=== PATIENT | male | born 1970 | race Caucasian/White ===

== ENCOUNTER 2018-07-08 17:47 | Inpatient (IN) ==
[2018-07-08] MEDS ORDERED: Aztreonam Inj 2 GM in Sodium Chloride 0.9% Inj 100 ML IV.SIG STA (18:26)
[2018-07-08] MEDS ORDERED: Vancomycin Inj 1,250 MG in Sodium Chlor 0.9% Inj 250 ML IV.SIG ONE ×2 (18:26→23:00)
--- NOTE | 2018-07-08 19:08 | ED ---
HPI General Chief Complaint: Altered Mental Status Stated Complaint: weakness Time Seen by Provider: 07/08/18 18:06 Source: patient, family and EMS Mode of arrival: EMS History of Present Illness HPI narrative: Patient is a morbidly obese 48-year-old male presenting to the emergency department for evaluation of altered mental status. 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 Patient was staring, he was nonverbal and hypotensive with systolic blood pressure in the 60s. He came around by the time they were on scene. He reports that he is not been feeling well for a few days, increased fatigue, cough. He denies any chest pain , shortness of breath, fever, chills, nausea, vomiting. Patient currently denies any headache, dizziness. He has a history significant for GERD, type 2 diabetes, neuropathy, overactive bladder, asthma. Patient denies any illicit drug use. He has prescriptions on him for Xanax and tramadol but it does not appear that they are being overused. Patient states that this is happened to him once before, he does not elaborate on this. MD complaint: Reports decreased responsiveness and weakness Onset (ago): minute(s) Timing confirmed by: other Severity: moderate Context: Reports unknown Associated symptoms: Reports cough, malaise and weakness Treatments prior to arrival: Reports IV fluid Related Data Home Medications Medication Instructions Recorded Confirmed albuterol sulfate [ProAir HFA] 2 puff INHALATION Q4H PRN 07/08/18 07/08/18 alprazolam [Xanax] 0.5 mg PO BID PRN 07/08/18 07/08/18 ascorbic acid (vitamin C) [Vitamin 1,000 mg PO DAILY 07/08/18 07/08/18 C] bupropion HCl [Wellbutrin XL] 150 mg PO DAILY 07/08/18 07/08/18 carisoprodol [Soma] 350 mg PO TID 07/08/18 07/08/18 exenatide microspheres [Bydureon 2 mg SUBCUT Q7D 07/08/18 07/08/18 BCise] gabapentin 1,200 mg PO BID 07/08/18 07/08/18 gabapentin 600 mg PO DAILY 07/08/18 07/08/18 ibuprofen 800 mg PO DAILY 07/08/18 07/08/18 metformin 1,000 mg PO BID 07/08/18 07/08/18 mirabegron [Myrbetriq] 50 mg PO DAILY 07/08/18 07/08/18 multivit with [id number] [One 1 tab PO DAILY 07/08/18 07/08/18 Daily For Men] omeprazole 20 mg PO DAILY 07/08/18 07/08/18 potassium chloride 20 meq PO BID 07/08/18 07/08/18 tramadol 50 mg PO Q8HR PRN 07/08/18 07/08/18 Allergies Allergy/AdvReac Type Severity Reaction Status Date / Time peas Allergy Severe Anaphylaxis Verified 07/08/18 18:07 penicillin G Allergy Severe Anaphylaxis Verified 07/08/18 18:07 Sulfa (Sulfonamide Allergy Severe Anaphylaxis Verified 07/08/18 18:07 Antibiotics) *MDRO Multi-Drug Resistant AdvReac Unknown unknown Uncoded 07/08/18 18:07 Organism Review of Systems ROS: all other systems reviewed are negative [facility] Medical History Medical History Asthma (Acute) GERD (gastroesophageal reflux disease) (Acute) Hypertension (Acute) Morbid obesity (Acute) Neuropathy (Acute) Overactive bladder (Acute) Type 2 diabetes mellitus (Acute) Social History Social History Second Hand Smoke Exposure: No Smoking Status: Current every day smoker Tobacco Type: Cigarettes How Often Do You Have a Drink Containing Alcohol: Never Recent Travel in [facility] within the Last 8 Weeks: No Recent Out of Country Travel within the Last 8 Weeks: No Immunization History Tetanus Immunization: <5 Years Exam Narrative Exam Narrative: GENERAL: Morbidly obese, alert male appears acutely ill, in no acute distress. SKIN: Focused skin assessment, flushed. Chronic ulceration to lateral aspect of right lower extremity. No foul odor drainage noted. HEAD: Atraumatic. Normocephalic. EYES: Pupils equal and round. No scleral icterus. No injection or drainage. ENT: No nasal bleeding or discharge. Mucous membranes pink and moist. NECK: Trachea midline. No JVD. CARDIOVASCULAR: Tachycardic. RESPIRATORY: Diaphragmatic, expiratory wheezes, diminished in bases GASTROINTESTINAL: Abdomen obese, soft, non-tender, nondistended. Hepatic and splenic margins not palpable. Positive bowel sounds. MUSCULOSKELETAL: No obvious deformities. No clubbing. No cyanosis. 2+ edema to right lower extremity, 1+ to the left lower extremity. Chronic discoloration to bilateral lower extremities. NEUROLOGICAL: Awake and alert, oriented to self and place. No obvious cranial nerve deficits. Motor grossly within normal limits. Normal speech. PSYCHIATRIC: Appropriate mood and affect; insight and judgment normal. Course Initial Documented Vital Signs Temperature 103.1 F H 07/08/18 18:07 Pulse Rate 123 H 07/08/18 18:07 Respiratory Rate 24 07/08/18 18:07 Blood Pressure 127/54 L 07/08/18 18:07 Pulse Oximetry 95 07/08/18 18:07 Last Documented Vital Signs Temperature 100.8 F H 07/08/18 21:15 Pulse Rate 104 H 07/08/18 21:25 Respiratory Rate 18 07/08/18 21:25 Blood Pressure 98/70 L 07/08/18 21:25 Pulse Oximetry 98 07/08/18 21:25 Medical Decision Making AP Attestation AP supervised visit: Yes Attestation: I, Dr. Garcia, have reviewed the advance practice practitioner' s documentation and am in agreement, met with the patient face to face, made the diagnosis, and the medical decision making was done by me. *My assessment and Findings: The patient is a 48-year-old male who was initially seen by the mid-level provider and Dr. Stuart. The patient was noted to have elevated temperature with a fever of 103, elevated heart rate, and possible cellulitis of the right lower extremity. Sepsis workup was performed, the patient had a lactic of 2.0, however, white count was 22,000. Chest x-ray revealed questionable effusions versus infiltrate, therefore, CT of the thorax was obtained. CT of the thorax reveals no infiltrate. UA has a few WBCs. The right lower extremity does have chronic venous stasis changes with some acute erythema and warmth that spreads up to the medial right thigh. There is no crepitus noted, I doubt necrotizing fasciitis. However, patient does meet sepsis criteria and will be admitted to the hospital. The patient's primary physician is Dr. Yrn rosenthal. [facility]. The patient was noted to get hypoxic when sleeping, most likely has sleep apnea. He was placed on O2 via nasal cannula but may benefit from CPAP at night. MDM Narrative Medical decision making narrative: Patient presented hypotensive and tachycardic , and febrile. Sepsis workup initiated. Pt placed on playground monitor and continuous pulse ox. IV acetaminophen and oral motrin in addition to IVF. Medical records reviewed and pt was admitted 3 years ago with sepsis from cellulitis. Pt will be started on antibiotics empirically. Cultures pending. CBC with WBC 22, lactic 2.0, mag+ 1.0. 2g mag IV replacement ordered. Ct of the brain is negative. CXR showed abnormalities, this was followed up with a CT of the chest. Chest CT was negative for acute process. Pt was given a total of 3L IVF. Pt will be admitted, discussed with Dr. Galeana, admit orders placed. Medical Screen Exam Complete: Yes Emergency Medical Condition: Yes Differential Diagnosis Differential Diagnosis: Influenza versus cellulitis versus sepsis versus metabolic abnormality versus arrhythmia versus pneumonia versus other Medical Records Medical records reviewed: Yes I reviewed the patient's medical records. Patient was admitted with sepsis secondary to cellulitis in his lower extremity in 2014. Lab Data Result diagrams: 07/08/18 18:15 07/08/18 20:15 Lab Results 07/08/18 07/08/18 07/08/18 Range/Units 18:15 18:15 18:55 WBC 22.0 H (4.0-11.0) th/mm3 RBC 4.02 L (4.50-5.90) mil/mm3 Hgb 13.1 (13.0-17.0) gm/dL Hct 36.5 L (39.0-51.0) % MCV 90.6 (80.0-100.0) fL MCH 32.5 (27.0-34.0) pg MCHC 35.8 (32.0-36.0) % RDW 14.3 (11.6-17.2) % Plt Count 271 (150-450) th/mm3 MPV 7.8 (7.0-11.0) fL Prelim Diff (Auto) Slide review pending Neut % (Auto) 88.5 H (16.0-70.0) % Lymph % (Auto) 5.2 L (9.0-44.0) % Galax % (Auto) 5.2 (0.0-8.0) % Eos % (Auto) 0.8 (0.0-4.0) % Baso % (Auto) 0.3 (0.0-2.0) % Neut # (Auto) 19.5 H (1.8-7.7) th/mm3 Lymph # (Auto) 1.1 (1.0-4.8) th/mm3 Galax # (Auto) 1.1 H (0.0-0.9) th/mm3 Eos # (Auto) 0.2 (0.0-0.4) th/mm3 Baso # (Auto) 0.1 (0.0-0.2) th/mm3 WBC Differential . Diff Scan Auto diff confirmed Differential Comment . Platelet Estimate Normal (Normal) Platelet Morphology Normal (Normal) Sodium (136-145) meq/L Potassium (3.5-5.1) meq/L Chloride (98-107) meq/L Carbon Dioxide (21.0-32.0) meq/L Anion Gap (5-15) meq/L BUN (7-18) mg/dL Creatinine (0.60-1.30) mg/dL Estimated GFR (>89) mL/min Random Glucose (74-106) mg/dL Lactic Acid 2.0 (0.4-2.0) mmol/L Calcium (8.5-10.1) mg/dL Magnesium (1.5-2.5) mg/dL Total Bilirubin (0.2-1.0) mg/dL AST (15-37) U/L ALT (12-78) U/L Alkaline Phosphatase (45-117) U/L Total Creatine Kinase (39-308) U/L CK-MB (CK-2) (0.5-3.6) ng/mL Troponin I (0.02-0.05) ng/mL B-Natriuretic Peptide 8 (0-100) pg/mL Total Protein (6.4-8.2) g/dL Albumin (3.4-5.0) g/dL Urine Color (Yellw/Straw) Urine Clarity (Clear) Urine pH (5.0-8.5) Ur Specific Monroe (1.002-1.035) Urine Protein (Neg-Trace) mg/dL Urine Glucose (UA) (Negative) mg/dL Urine Ketones (Negative) mg/dL Urine Occult Blood (Negative) Urine Nitrate (Negative) Urine Bilirubin (Negative) Urine Urobilinogen (Less than 2) mg/dL Ur Leukocyte Esterase (Negative) Urine RBC (0-3) /hpf Urine WBC (0-5) /hpf Ur Squamous Epith Cells (0-5) /hpf Amorphous Sediment (None) /hpf Urine Bacteria (None) /hpf Hyaline Casts (0-3) /lpf Urine Mucus (Occasional) /lpf Micro UA Comment Ur Microscopic Review Urine Culture Comments 07/08/18 07/08/18 Range/Units 20:10 20:15 WBC (4.0-11.0) th/mm3 RBC (4.50-5.90) mil/mm3 Hgb (13.0-17.0) gm/dL Hct (39.0-51.0) % MCV (80.0-100.0) fL MCH (27.0-34.0) pg MCHC (32.0-36.0) % RDW (11.6-17.2) % Plt Count (150-450) th/mm3 MPV (7.0-11.0) fL Prelim Diff (Auto) Neut % (Auto) (16.0-70.0) % Lymph % (Auto) (9.0-44.0) % Galax % (Auto) (0.0-8.0) % Eos % (Auto) (0.0-4.0) % Baso % (Auto) (0.0-2.0) % Neut # (Auto) (1.8-7.7) th/mm3 Lymph # (Auto) (1.0-4.8) th/mm3 Galax # (Auto) (0.0-0.9) th/mm3 Eos # (Auto) (0.0-0.4) th/mm3 Baso # (Auto) (0.0-0.2) th/mm3 WBC Differential Diff Scan Differential Comment Platelet Estimate (Normal) Platelet Morphology (Normal) Sodium 132 L (136-145) meq/L Potassium 4.8 (3.5-5.1) meq/L Chloride 103 (98-107) meq/L Carbon Dioxide 19.9 L (21.0-32.0) meq/L Anion Gap 9 (5-15) meq/L BUN 32 H (7-18) mg/dL Creatinine 1.85 H (0.60-1.30) mg/dL Estimated GFR 39 L (>89) mL/min Random Glucose 227 H (74-106) mg/dL Lactic Acid (0.4-2.0) mmol/L Calcium 8.2 L (8.5-10.1) mg/dL Magnesium 1.0 L (1.5-2.5) mg/dL Total Bilirubin 0.5 (0.2-1.0) mg/dL AST 23 (15-37) U/L ALT 14 (12-78) U/L Alkaline Phosphatase 88 (45-117) U/L Total Creatine Kinase 253 (39-308) U/L CK-MB (CK-2) 3.3 (0.5-3.6) ng/mL Troponin I Less than 0.02 L (0.02-0.05) ng/mL B-Natriuretic Peptide (0-100) pg/mL Total Protein 7.0 (6.4-8.2) g/dL Albumin 2.6 L (3.4-5.0) g/dL Urine Color Ce (Yellw/Straw) Urine Clarity Cloudy H (Clear) Urine pH 5.0 (5.0-8.5) Ur Specific [place] 1.023 (1.002-1.035) Urine Protein 500 or greater (Neg-Trace) mg/dL Urine Glucose (UA) 50 (Negative) mg/dL Urine Ketones Negative (Negative) mg/dL Urine Occult Blood Negative (Negative) Urine Nitrate Negative (Negative) Urine Bilirubin Negative (Negative) Urine Urobilinogen 0.2 (Less than 2) mg/dL Ur Leukocyte Esterase Negative (Negative) Urine RBC 4 H (0-3) /hpf Urine WBC 9 H (0-5) /hpf Ur Squamous Epith Cells 4 (0-5) /hpf Amorphous Sediment Rare H (None) /hpf Urine Bacteria Occasional H (None) /hpf Hyaline Casts 81 (0-3) /lpf Urine Mucus Many H (Occasional) /lpf Micro UA Comment Cath-culture ind Ur Microscopic Review Not Reportable Urine Culture Comments Cath-cult indicated Imaging Data Radiologist's impression: Chest X-Ray 07/08/18 18:07 CONCLUSION: Suboptimal examination with hazy opacity in the left perihilar region and left lung base which could represent infiltrate or posterior layering effusion. Head CT 07/08/18 18:09 CONCLUSION: 1. Negative noncontrast head CT. . Chest CT 07/08/18 19:48 CONCLUSION: 1. No pneumonia or other acute cardiopulmonary disease demonstrated. 2. Enlarged, fatty liver. 3. Small hiatal hernia. Discharge Plan Discharge Disposition Patient Disposition: ED Admit(ED Internal Use Only) Discharge Condition Condition: Stable Discharge Order Discharge Orders: ED Use Only Admit Order (Routine); Ordered 07/08/18 Ordered By: Carlyn Ramachandran Discharge Details Diagnosis: Sepsis, Cellulitis, Hypomagnesemia, Acute kidney injury Physicians Team ED Provider: Karson Garcia ED Midlevel Provider: Carlyn Ramachandran Primary Care Provider: Yrn Zamora Rxs /Orders / Referrals /Forms Prescriptions: No Action ibuprofen 800 mg Tablet 800 mg PO DAILY RF: 0 omeprazole 20 mg Capsule,Delayed Release(Dr/Ec) 20 mg PO DAILY RF: 0 bupropion HCl [Wellbutrin XL] 150 mg Tablet Extended Release 24 Hr 150 mg PO DAILY RF: 0 multivit with [id number] [One Daily For Men] 0.4-600 mg-mcg Tablet 1 tab PO DAILY RF: 0 potassium chloride 20 mEq Tablet Extended Release 20 meq PO BID RF: 0 carisoprodol [Soma] 350 mg Tablet 350 mg PO TID RF: 0 metformin 500 mg Tablet 1,000 mg PO BID RF: 0 ascorbic acid (vitamin C) [Vitamin C] 1,000 mg Tablet 1,000 mg PO DAILY RF: 0 tramadol 50 mg Tablet 50 mg PO Q8HR PRN (Reason: Pain) RF: 0 alprazolam [Xanax] 0.5 mg Tablet 0.5 mg PO BID PRN (Reason: Anxiety) RF: 0 gabapentin 300 mg Capsule 600 mg PO DAILY RF: 0 gabapentin 300 mg Capsule 1,200 mg PO BID RF: 0 albuterol sulfate [ProAir HFA] 90 mcg/actuation Hfa Aerosol Inhaler 2 puff INHALATION Q4H PRN (Reason: Shortness Of Breath) RF: 0 mirabegron [Myrbetriq] 50 mg Tablet Extended Release 24 Hr 50 mg PO DAILY RF: 0 exenatide microspheres [Bydureon BCise] 2 mg/0.85 mL Auto-Injector 2 mg SUBCUT Q7D RF: 0 Status ED Status: Admitted Patient
[2018-07-08 19:21] LABS: Baso # (Auto) 0.1 th/mm3 (0.0-0.2); Baso % (Auto) 0.3 % (0.0-2.0); Eos # (Auto) 0.2 th/mm3 (0.0-0.4); Eos % (Auto) 0.8 % (0.0-4.0); Hematocrit 36.5 % (39.0-51.0); Hemoglobin 13.1 gm/dL (13.0-17.0); Lymph # (Auto) 1.1 th/mm3 (1.0-4.8); Lymph % (Auto) 5.2 % (9.0-44.0); Mean Corpuscular HGB Conc 35.8 % (32.0-36.0); Mean Corpuscular Hemoglobin 32.5 pg (27.0-34.0); Mean Corpuscular Volume 90.6 fL (80.0-100.0); Mean Platelet Volume 7.8 fL (7.0-11.0); Mono # (Auto) 1.1 th/mm3 (0.0-0.9); Mono % (Auto) 5.2 % (0.0-8.0); Neut # (Auto) 19.5 th/mm3 (1.8-7.7); Neut % (Auto) 88.5 % (16.0-70.0); Platelet Count 271 th/mm3 (150-450); Red Blood Count 4.02 mil/mm3 (4.50-5.90); Red Cell Distribution Width 14.3 % (11.6-17.2)
--- NOTE | 2018-07-08 19:29 | XR ---
EXAM DATE: 07/08/2018 7:25 PM EST AGE/SEX: 48 years / Male INDICATIONS: Fever and shortness of breath. CLINICAL DATA: This is the patient's initial encounter. Patient reports that signs and symptoms have been present for 1 day and indicates a pain score of Nonresponsive. MEDICAL/SURGICAL HISTORY: Non-responsive. Non-responsive. [place] [facility] [place]. . FINDINGS: 2 AP views of the chest were obtained and demonstrate that the heart size is at the upper limits of n ormal. There is hazy opacity in the left lung base and left perihilar region. The left costophrenic a ngle is cut off the exam. The right lung is clear. Overlying electrocardiogram leads and oxygen tubin g are present. CONCLUSION: Suboptimal examination with hazy opacity in the left perihilar region and left lung base which could represent infiltrate or posterior layering effusion. Electronically signed by: John Lawson MD 07/08/2018 7:27 PM EST
--- NOTE | 2018-07-08 19:36 | CT ---
EXAM DATE: 07/08/2018 7:25 PM EST AGE/SEX: 48 years / Male INDICATIONS: Found confused and hypotensive. CLINICAL DATA: This is the patient's initial encounter. Patient reports that signs and symptoms have been present for 1 day and indicates a pain score of 0/10. MEDICAL/SURGICAL HISTORY: None. None. RADIATION DOSE: 65.59 CTDI (mGy) ;Tabletop exam COMPARISON: No prior exams available for comparison. TECHNIQUE: CT of the head without contrast. Using automated exposure control and adjustment of the mA and/or kV according to patient size, radiation dose was kept as low as reasonably achievable to ob tain optimal diagnostic quality images. DICOM format image data is available electronically for revi ew and comparison. FINDINGS: Cerebrum: The ventricles are normal for age. No evidence of midline shift, mass lesion, hemorrhage or acute infarction. No extraaxial fluid collections are seen. Posterior Fossa: The cerebellum and brainstem are intact. The 4th ventricle is midline. The cerebe llopontine angle is unremarkable. Extracranial: The visualized portion of the orbits is intact. Skull: The calvaria is intact. No evidence of skull fracture. CONCLUSION: 1. Negative noncontrast head CT. . Electronically signed by: John Lawson MD 07/08/2018 7:35 PM EST
[2018-07-08 19:50] LABS: Platelet Estimate Normal (Normal); Platelet Morphology Normal (Normal)
[2018-07-08] MEDS ORDERED: Sod Chloride 0.9% Inj 1,000 ML IV.SIG SCH ×2 (20:30→21:45)
--- NOTE | 2018-07-08 20:44 | CT ---
EXAM DATE: 07/08/2018 8:39 PM EST AGE/SEX: 48 years / Male INDICATIONS: Cough and fever. CLINICAL DATA: This is the patient's initial encounter. Patient reports that signs and symptoms have been present for 1 day and indicates a pain score of 0/10. MEDICAL/SURGICAL HISTORY: Gastroesophageal reflux disease. Hypertension. Diabetes mellitus type I I. None. RADIATION DOSE: 23.09 CTDI (mGy) COMPARISON: No prior exams available for comparison. TECHNIQUE: Multiple contiguous axial images were obtained through the chest without contrast. Image s were obtained in suspended respiration using multiple row detector helical technique. Using automa mónica exposure control and adjustment of the mA and/or kV according to patient size, radiation dose was kept as low as reasonably achievable to obtain optimal diagnostic quality images. DICOM format imag e data is available electronically for review and comparison. FINDINGS: No infiltrate, effusion or pneumothorax. Heart size within normal limits. There is no mediastinal, hilar or axillary lymphadenopathy. Liver is fatty infiltrated and appears enlarged. There is a small hiatal hernia. CONCLUSION: 1. No pneumonia or other acute cardiopulmonary disease demonstrated. 2. Enlarged, fatty liver. 3. Small hiatal hernia. Electronically signed by: Roddy Crooks MD 07/08/2018 8:43 PM EST
[2018-07-08 20:53] LABS: Amorphous Sediment,Urine Rare /hpf; Bacteria,Urine Occasional /hpf; Bilirubin,Urine Negative (Negative); Clarity,Urine Cloudy (Clear); Color,Urine Amber (Yellw/Straw); Glucose,Urine (UA) 50 mg/dL (Negative); Hyaline Casts,Urine 81 /lpf (0-3); Leukocyte Esterase,Urine Negative (Negative); Mucus,Urine Many /lpf (Occasional); Nitrite,Urine Negative (Negative); Specific Gravity,Urine 1.023 (1.002-1.035); Squamous Epithelial Cell,Urine 4 /hpf (0-5)
[2018-07-08 20:54] LABS: Urobilinogen,Urine 0.2 mg/dL (Less than 2)
[2018-07-08 21:08] LABS: Alanine Aminotransferase 14 U/L (12-78); Albumin 2.6 g/dL (3.4-5.0); Anion Gap 9 meq/L (5-15); Aspartate Aminotransferase 23 U/L (15-37); Blood Urea Nitrogen 32 mg/dL (7-18); Calcium 8.2 mg/dL (8.5-10.1); Carbon Dioxide 19.9 meq/L (21.0-32.0); Chloride 103 meq/L (98-107); Glomerular Filtration Rate 39 mL/min (>89); Glucose,Random 227 mg/dL (74-106); Potassium 4.8 meq/L (3.5-5.1); Sodium 132 meq/L (136-145)
[2018-07-08] MEDS ORDERED: Magnesium Sulfate Inj 2 GM in Sodium Chlor 0.9% Inj 96 ML IV.SIG ONE (21:09)
[2018-07-08 21:12] LABS: Alkaline Phosphatase 88 U/L (45-117); Creatine Kinase 253 U/L (39-308)
[2018-07-08 21:24] LABS: Creatine Kinase MB 3.3 ng/mL (0.5-3.6)
[2018-07-08] MEDS ORDERED: Vancomycin Consult Pharmacy OTHER PRN (22:38)
[2018-07-08] MEDS ORDERED: Dextrose 50% in Water 50 ML Vial IV.PUSH PRN (22:42)
[2018-07-08] MEDS ORDERED: Bisacodyl 10 MG Supp RECTAL PRN (22:45)
[2018-07-08] MEDS ORDERED: ALPRAZolam 0.5 MG Tablet PO PRN (22:49)
[2018-07-09 00:01] LABS: Activated Partial Thrombo Time 29.4 sec (23.4-31.7); Prothrombin Time 10.3 sec (9.8-11.6)
[2018-07-09] MEDS ORDERED: Sod Chloride 0.9% Inj 1,000 ML IV.SIG SCH ×2 (00:45→03:15)
[2018-07-09] MEDS: Sod Chloride 0.9% Inj 1,000 ML IV.CONT SCH ×2 (01:35→16:56)
[2018-07-09] MEDS: Heparin - SQ 10,000 UNITS/ML Vial SQ SCH ×3 (02:26→22:33)
[2018-07-09] MEDS: Aztreonam Inj 2 GM in Sodium Chloride 0.9% Inj 100 ML IV.SIG SCH ×4 (02:52→19:36)
[2018-07-09] MEDS: Chlorhexidine Gluconate 2% 1 Pack (2 Cloths) TOPICAL SCH (03:29)
[2018-07-09] MEDS ORDERED: Chlorhexidine Gluconate 2% 1 Pack (2 Cloths) TOPICAL PRN (04:00)
[2018-07-09] MEDS ORDERED: Albumin Human 25% Inj 100 ML IV.SIG ONE (04:18)
[2018-07-09 04:40] LABS: ABG Base Excess -5.3 mmol/L (-2-2); ABG PCO2 48 mmHg (38-42); ABG PO2 89 mmHG (61-120)
--- NOTE | 2018-07-09 04:41 | P.HPIM ---
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 Patient somnolent, wakes up for exam. He appears to deny pain. Inpatient Certification: I certify that the inpatient services were ordered in accordance with Medicare regulations governing the order. This includes certification that hospital inpatient services are reasonable and necessary and in the case of services not specified as inpatient-only under 42 CFR 419.22(n), that they are appropriately provided as inpatient services in accordance to with the 2-midnight benchmark under 43 CFR 412.3(e) Estimated Total Length of Stay (Days): 3 Plans for Post Hospital Care: Not yet determined Review of Systems All other systems reviewed negative except as stated in HPI [facility] - History History Provided By: Patient - Medical History Medical History: Medical History (Last Reviewed 07/09/18 @ 04:34 by Stefan Galeana MD) Asthma GERD (gastroesophageal reflux disease) Hypertension Morbid obesity Neuropathy Overactive bladder Type 2 diabetes mellitus - Surgical History Surgical History: Surgical History (Last Updated 07/09/18 @ 04:36 by Stefan Galeana MD) H/O knee surgery - Family History Family History: Family History (Last Updated 07/09/18 @ 04:36 by Stefan Galeana MD) Other Family history unobtainable Family history unobtainable due to patient's condition - Tobacco History Second Hand Smoke Exposure: No Tobacco Use In Past 30 Days: Yes Smoking Status: Former smoker Tobacco Type: Cigarettes - Alcohol History How Often Do You Have a Drink Containing Alcohol: Never - Substance Use History Substance History: No History of Abuse - Travel History Recent Travel in the [place] Within the Last 8 Weeks: No Recent Travel Out of the Country Within the Last 8 Weeks: No - Immunization History Tetanus Immunization: <5 Years Medications and Allergies Active Medications: Active Medications Acetaminophen (Tylenol) 650 mg PO Q4H PRN PRN Reason: Temp > 100.4 Al Hydroxide/Mg Hydroxide (Milk Of Magnesia Liq) 30 ml PO Q12H PRN PRN Reason: Mild Constipation Albuterol (Ventolin Hfa Inh) 2 puff INH Q4H PRN PRN Reason: Shortness Of Breath Alprazolam (Xanax) 0.5 mg PO BID PRN PRN Reason: Anxiety Bisacodyl (Dulcolax Supp) 10 mg RECTAL DAILY PRN PRN Reason: SEVERE CONSITIPATION Bupropion HCl (Wellbutrin Sr) 150 mg PO DAILY [facility] Carisoprodol (Soma) 350 mg PO TID [facility] Chlorhexidine Gluconate (Chlorhexidine 2% Cloth) 3 pack TOPICAL DAILY@0400 FLEX Stop: 07/14/18 03:59 Last Admin: 07/09/18 03:29 Dose: 3 pack Chlorhexidine Gluconate (Chlorhexidine 2% Cloth) 3 pack TOPICAL DAILY@0400 PRN PRN Reason: Extra cloth needed Stop: 07/14/18 03:59 Dextrose (D50w Vial) 50 ml IV.PUSH UNSCH PRN PRN Reason: PER HYPOGLYCEMIA PROTOCOL Glucagon (Glucagon Inj) 1 mg OTHER PRN PRN PRN Reason: for Hypoglycemia Protocol Heparin Sodium (Porcine) (Heparin Inj) 5,000 units SQ Q12H [facility] Last Admin: 07/09/18 02:26 Dose: Not Given Metronidazole/Sodium Chloride (Flagyl 500 Mg Inj) 100 mls @ 100 mls/hr IV.SIG Q6H [facility] Last Infusion: 07/09/18 02:26 Dose: Infused Aztreonam 2 gm/ Sodium (Chloride) 100 mls @ 200 mls/hr IV.SIG Q6H [facility] Last Infusion: 07/09/18 03:29 Dose: Infused Sodium Chloride (Ns Inj) 1,000 mls @ 70 mls/hr IV.CONT .[id number] [facility] Last Admin: 07/09/18 01:35 Dose: 70 mls/hr Albumin Human (Flexbumin 25% Inj) 100 mls @ 60 mls/hr IV.SIG ONCE ONE Stop: 07/09/18 05:57 Insulin Aspart (Novolog Insulin Correctional Sugar Inj) 0 unit SQ ACHS [facility]; Protocol Lactulose (Lactulose Liq) 30 ml PO DAILY PRN PRN Reason: SEVERE CONSITIPATION Ondansetron HCl (Zofran Inj) 4 mg IV.PUSH Q6H PRN PRN Reason: NAUSEA OR VOMITING Pantoprazole Sodium (Protonix) 20 mg PO DAILY [facility] Pharmacy Profile Note (Vancomycin Consult Pharmacy) 1 each OTHER UNSCH PRN PRN Reason: Pharmacy to dose Sennosides (Senokot) 17.2 mg PO Q12H PRN PRN Reason: Moderate Constipation Sodium Chloride (Ns Flush) 2 ml IV.FLUSH BID FLEX Sodium Chloride (Ns Flush) 2 ml IV.FLUSH PRN PRN PRN Reason: FLUSH AFTER USING IV ACCESS Allergies Allergy/AdvReac Type Severity Reaction Status Date / Time peas Allergy Severe Anaphylaxis Verified 07/08/18 18:07 penicillin G Allergy Severe Anaphylaxis Verified 07/08/18 18:07 Sulfa (Sulfonamide Allergy Severe Anaphylaxis Verified 07/08/18 18:07 Antibiotics) *MDRO Multi-Drug Resistant AdvReac Unknown unknown Uncoded 07/08/18 18:07 Organism Home Medications Medication Instructions Recorded Confirmed Type albuterol sulfate [ProAir HFA] 2 puff INHALATION Q4H PRN 07/08/18 07/08/18 History alprazolam [Xanax] 0.5 mg PO BID PRN 07/08/18 07/08/18 History ascorbic acid (vitamin C) [Vitamin 1,000 mg PO DAILY 07/08/18 07/08/18 History C] bupropion HCl [Wellbutrin XL] 150 mg PO DAILY 07/08/18 07/08/18 History carisoprodol [Soma] 350 mg PO TID 07/08/18 07/08/18 History exenatide microspheres [Bydureon 2 mg SUBCUT Q7D 07/08/18 07/08/18 History BCise] gabapentin 1,200 mg PO BID 07/08/18 07/08/18 History gabapentin 600 mg PO DAILY 07/08/18 07/08/18 History ibuprofen 800 mg PO DAILY 07/08/18 07/08/18 History metformin 1,000 mg PO BID 07/08/18 07/08/18 History mirabegron [Myrbetriq] 50 mg PO DAILY 07/08/18 07/08/18 History multivit with [id number] [One 1 tab PO DAILY 07/08/18 07/08/18 History Daily For Men] omeprazole 20 mg PO DAILY 07/08/18 07/08/18 History potassium chloride 20 meq PO BID 07/08/18 07/08/18 History tramadol 50 mg PO Q8HR PRN 07/08/18 07/08/18 History Exam Vital signs: Vital Signs 07/08/18 18:07 12/12/18 18:15 07/08/18 18:56 Temperature 103.1 F H 103.1 F H Pulse Rate 123 H 126 H 121 H Respiratory Rate 24 24 24 Blood Pressure 127/54 L 136/58 L Pulse Oximetry 95 95 07/08/18 19:15 07/08/18 19:18 07/08/18 20:15 Temperature 101.5 F H Pulse Rate 120 H 116 H Respiratory Rate 24 20 Blood Pressure 112/55 L 87/48 L Pulse Oximetry 99 95 95 07/08/18 20:30 07/08/18 20:40 07/08/18 20:50 Temperature 101.8 F H 101.5 F H Pulse Rate 112 H 108 H 106 H Respiratory Rate 25 H 24 18 Blood Pressure 82/43 L 108/55 L 107/46 L Pulse Oximetry 95 98 99 07/08/18 21:05 07/08/18 21:15 07/08/18 21:25 Temperature 101.1 F H 100.8 F H Pulse Rate 100 H 102 H 104 H Respiratory Rate 18 20 18 Blood Pressure 98/44 L 80/43 L 98/70 L Pulse Oximetry 98 98 98 07/08/18 22:00 07/08/18 22:40 07/08/18 23:20 Temperature 100.0 F H 99.7 F H 99.0 F Pulse Rate 96 H 92 H 96 H Respiratory Rate 20 19 22 Blood Pressure 97/54 L 94/52 L 85/49 L Pulse Oximetry 97 95 95 07/09/18 00:00 07/09/18 00:20 07/09/18 01:00 Temperature 98.6 F 98.2 F 98.1 F Pulse Rate 86 92 H 90 Respiratory Rate 20 22 21 Blood Pressure 98/54 L 97/47 L 98/56 L Pulse Oximetry 95 94 L 97 07/09/18 01:20 07/09/18 01:50 07/09/18 02:29 Temperature 97.9 F 97.5 F L Pulse Rate 82 86 Respiratory Rate 16 20 Blood Pressure 107/56 L 112/58 L Pulse Oximetry 96 95 96 07/09/18 02:31 07/09/18 02:54 07/09/18 03:00 Temperature 97.7 F 97.5 F L Pulse Rate 83 83 Respiratory Rate 15 15 Blood Pressure Pulse Oximetry 95 99 98 07/09/18 03:01 07/09/18 03:06 07/09/18 03:07 Temperature 97.5 F L 97.5 F L 97.5 F L Pulse Rate 83 82 82 Respiratory Rate 15 18 17 Blood Pressure 77/45 L 78/44 L 77/44 L Pulse Oximetry 98 98 97 07/09/18 03:10 07/09/18 03:25 07/09/18 03:30 Temperature 97.5 F L 97.3 F L 97.3 F L Pulse Rate 81 81 81 Respiratory Rate 16 22 17 Blood Pressure 80/45 L 89/54 L 87/54 L Pulse Oximetry 98 99 100 Intake & Output 07/08/18 07/08/18 07/09/18 06:59 18:59 06:59 Intake Total 100 / 100 4025.0 / 4025.0 Output Total 200 / 200 Balance 100 / 100 3825.0 / 3825.0 Weight 217.724 kg 226 kg Intake: IV 100 / 100 4025.0 / 4025.0 Ofirmev Inj 1,000 mg In 100 ml 100 / 100 @ 400 mls/hr IV.SIG ONCE ONE Rx #:[id number] Azactam Inj 2 GM In NS Inj 100 200 / 200 ML @ 200 mls/hr IV.SIG Q6H [facility] Rx#:[id number] Magnesium Sulfate Inj 2 GM In 100 / 100 NS Inj 96 ML @ 50 mls/hr IV.SIG ONCE ONE Rx#:[id number] NS Inj 1,000 ML @ 1000 mls/hr 3000 / 3000 IV.SIG BOLUS [facility] Rx#:[id number] Vancomycin Inj 1,250 MG In NS 525.0 / 525.0 Inj 250 ML @ 250 mls/hr IV.SIG ONCE ONE Rx#:[id number] Flagyl 500 MG Inj 100 ML @ 100 200 / 200 mls/hr IV.SIG Q6H [facility] Rx#: [id number] Output: Urine Amount (Catheter) 200 / 200 Indwelling Temp Sensing 200 / 200 Catheter Other: Weight On Admission 226 kg Narrative: GENERAL: Patient lying in bed on CPAP. Sleeping, wakes up for exam. Appears comfortable. SKIN: Warm and dry. HEAD: Atraumatic. Normocephalic. EYES: Pupils equal and round. No scleral icterus. No injection or drainage. ENT: No nasal bleeding or discharge. Mucous membranes pink and moist. NECK: Trachea midline. No JVD. CARDIOVASCULAR: Regular rate and rhythm. RESPIRATORY: No accessory muscle use. Clear to auscultation. Breath sounds equal bilaterally. GASTROINTESTINAL: Abdomen soft, non-tender, nondistended. Hepatic and splenic margins not palpable. MUSCULOSKELETAL: Extremities without clubbing, cyanosis. No obvious deformities. Chronic appearing edema, 3+ in the right lower leg, 2+ in the left lower leg. Ulcer of the right lateral lower leg, surrounding induration. No crepitus. NEUROLOGICAL: Awake and alert. No obvious cranial nerve deficits. Motor grossly within normal limits. Patient able to move bilateral lower and upper extremities spontaneously. PSYCHIATRIC: Appropriate mood and affect; insight and judgment normal. Results - Labs CBC & Chem 7: 07/08/18 18:15 07/08/18 20:15 Labs: Short CBC 07/08/18 Range/Units 18:15 WBC 22.0 H (4.0-11.0) th/mm3 Hgb 13.1 (13.0-17.0) gm/dL Hct 36.5 L (39.0-51.0) % Plt Count 271 (150-450) th/mm3 BMP 07/08/18 20:15 Sodium 132 L Potassium 4.8 Chloride 103 Carbon Dioxide 19.9 L BUN 32 H Creatinine 1.85 H Calcium 8.2 L Cardiac Enzymes 07/08/18 Range/Units 20:15 Total Creatine Kinase 253 (39-308) U/L CK-MB (CK-2) 3.3 (0.5-3.6) ng/mL Troponin I Less than 0.02 L (0.02-0.05) ng/mL Liver Function 07/08/18 Range/Units 20:15 Total Bilirubin 0.5 (0.2-1.0) mg/dL AST 23 (15-37) U/L ALT 14 (12-78) U/L Alkaline Phosphatase 88 (45-117) U/L Albumin 2.6 L (3.4-5.0) g/dL Urine 07/08/18 Range/Units 20:10 Urine Color Ce (Yellw/Straw) Urine Clarity Cloudy H (Clear) Urine pH 5.0 (5.0-8.5) Ur Specific [place] 1.023 (1.002-1.035) Urine Protein 500 or greater (Neg-Trace) mg/dL Urine Glucose (UA) 50 (Negative) mg/dL - Imaging Impressions Chest X-Ray 07/08/18 18:07 CONCLUSION: Suboptimal examination with hazy opacity in the left perihilar region and left lung base which could represent infiltrate or posterior layering effusion. Head CT 07/08/18 18:09 CONCLUSION: 1. Negative noncontrast head CT. . Chest CT 07/08/18 19:48 CONCLUSION: 1. No pneumonia or other acute cardiopulmonary disease demonstrated. 2. Enlarged, fatty liver. 3. Small hiatal hernia. Caprini VTE Risk Assessment Caprini VTE Risk Assessment: No/Low Risk (score <= 1) Caprini Risk Assessment Model: Point Value = 1 Point Value = 2 Point Value = 3 Point Value = 5 Age 41-60 Minor surgery BMI > 25 kg/m2 Swollen legs Varicose veins or History of unexplained or recurrent spontaneous Oral contraceptives or hormone replacement Sepsis (< 1 month) Serious lung disease, including pneumonia (< 1 month) Abnormal pulmonary function Acute myocardial infarction Congestive heart failure (< 1 month) History of inflammatory bowel disease Medical patient at bed rest Age 61-74 Arthroscopic surgery Major open surgery (> 45 min) Laparoscopic surgery (> 45 min) Malignancy Confined to bed (> 72 hours) Immobilizing plaster cast Central venous access Age >= 75 History of VTE Family history of VTE Factor V Leiden Prothrombin [id number] Lupus anticoagulant Anticardiolipin antibodies Elevated serum homocysteine Heparin-induced thrombocytopenia Other congenital or acquired thrombophilia Stroke (< 1 month) Elective arthroplasty Hip, pelvis, or leg fracture Acute spinal cord injury (< 1 month) Prophylaxis Regimen: Total Risk Factor Score Risk Level Prophylaxis Regimen 0-1 Low Early ambulation 2 Moderate Order ONE of the following: *Sequential Compression Device (SCD) *Heparin 5000 units SQ BID 3-4 Higher Order ONE of the following medications: *Heparin 5000 units SQ TID *Enoxaparin/Lovenox 40 mg SQ daily (WT < 150 kg, CrCl > 30 mL/min) *Enoxaparin/Lovenox 30 mg SQ daily (WT < 150 kg, CrCl > 10-29 mL/min) *Enoxaparin/Lovenox 30 mg SQ BID (WT < 150 kg, CrCl > 30 mL/min) AND/OR *Sequential Compression Device (SCD) 5 or more Highest Order ONE of the following medications: *Heparin 5000 units SQ TID (Preferred with Epidurals) *Enoxaparin/Lovenox 40 mg SQ daily (WT < 150 kg, CrCl > 30 mL/min) *Enoxaparin/Lovenox 30 mg SQ daily (WT < 150 kg, CrCl > 10-29 mL/min) *Enoxaparin/Lovenox 30 mg SQ BID (WT < 150 kg, CrCl > 30 mL/min) AND *Sequential Compression Device (SCD) Assessment and Plan - Plan //Severe sepsis on admission //Septic shock Fever of 103.1, tachycardia in the 120s, leukocytosis of 22, acute kidney injury with creatinine 1.8 from normal baseline. Diabetic foot ulcer on the right lower extremity. -Lactic acid within normal limits. = Broad-spectrum antibiotics for coverage of gram negatives, anaerobes, MRSA Follow-up blood cultures, urine cultures //Altered mental status on admission. Likely secondary to sepsis as well as sleep apnea. Will order ABG. //Suspected severe sleep apnea. Improved with CPAP. Will switch to BiPAP //Right lower extremity diabetic foot ulcer //Diabetes mellitus. Glucose elevated in the 200s. Diabetic diet and insulin sliding scale Hypomagnesemia. Magnesium 1.0 on admission. Replace and monitor. Acute kidney injury. Creatinine 1.8 from normal baseline. Secondary to sepsis. IV fluids and monitor. Discussed Condition With: Patient, nurse, ED physician. H&P: Quality - VTE Deep Vein Thrombosis/Pulmonary Embolism Present on Admission: No
[2018-07-09 05:19] LABS: Baso # (Auto) 0.1 th/mm3 (0.0-0.2); Baso % (Auto) 0.5 % (0.0-2.0); Eos # (Auto) 0.1 th/mm3 (0.0-0.4); Eos % (Auto) 0.5 % (0.0-4.0); Hematocrit 37.1 % (39.0-51.0); Lymph # (Auto) 0.8 th/mm3 (1.0-4.8); Lymph % (Auto) 3.5 % (9.0-44.0); Mean Corpuscular HGB Conc 32.4 % (32.0-36.0); Mean Corpuscular Hemoglobin 29.5 pg (27.0-34.0); Mean Corpuscular Volume 91.2 fL (80.0-100.0); Mono # (Auto) 0.8 th/mm3 (0.0-0.9); Mono % (Auto) 3.9 % (0.0-8.0); Neut % (Auto) 91.6 % (16.0-70.0); Platelet Count 242 th/mm3 (150-450); Red Blood Count 4.07 mil/mm3 (4.50-5.90); Red Cell Distribution Width 14.4 % (11.6-17.2); White Blood Count 21.8 th/mm3 (4.0-11.0)
[2018-07-09 05:57] LABS: Albumin 2.4 g/dL (3.4-5.0); Calcium 7.3 mg/dL (8.5-10.1); Carbon Dioxide 23.2 meq/L (21.0-32.0); Magnesium 1.3 mg/dL (1.5-2.5); Thyroid Stimulating Hormone 0.688 uIU/mL (0.358-3.740); Total Protein 6.9 g/dL (6.4-8.2)
[2018-07-09 05:58] LABS: Potassium 5.5 meq/L (3.5-5.1)
--- NOTE | 2018-07-09 07:01 | ECG ---
Date Performed: 07/08/2018 Time Performed: 18:14:37 PTAGE: 48 years EKG: SINUS TACHYCARDIA LOW QRS VOLTAGE IN PRECORDIAL LEADS INCOMPLETE RIGHT BUNDLE BRANCH BLOCK ABNORMAL RHYTHM ECG NO PREVIOUS TRACING DOCTOR: Sekou Erickson Interpretating Date/Time 07/09/2018 07:00:43
[2018-07-09] MEDS: Insulin NovoLOG Aspart Correctional Sugar Inj SQ SCH ×4 (08:23→21:00)
--- NOTE | 2018-07-09 08:56 | P.PNIM ---
Subjective Interval history: f/u; septic shock in no acute distress. has some pain to the right lower extremity. T max 103.1. Physical Exam Vital signs: Last Vital Signs Temp 98.1 F 07/09/18 06:15 Pulse 79 07/09/18 06:15 Resp 14 07/09/18 06:15 BP 98/56 L 07/09/18 06:15 Pulse Ox 99 07/09/18 06:15 Intake & Output 07/07/18 07/08/18 07/09/18 07/10/18 06:59 06:59 06:59 06:59 Intake Total 5375.0 / 5375.0 100 / 100 Output Total 750 / 750 Balance 4625.0 / 4625.0 100 / 100 Weight 228 kg Constitutional no acute distress Routine Respiratory Exam Present CTA bilaterally Routine Cardiovascular Exam Present RRR Routine Abdominal Exam Present soft Routine Extremities Exam Comments: bilateral pedal edema. Routine Skin Exam Comments: wound noted on the right ankle. Routine Neurological Exam Present alert and oriented X3 Urinary Catheter Management Indwelling Temp Sensing Catheter: Cath placed during this visit: yes Urethral indwelling: Yes Reason for continuing: Hourly intake/output Insertion date: 07/08/18 Insertion time: 20:05 Results Labs CBC & Chem 7: 07/15/18 04:17 07/15/18 04:17 Labs: Microbiology 07/08/18 19:00 Nasal Wash Influenza Types A,B Antigen - Final Negative for FLU A and B antigen Infection due to influenza A or B cannot be ruled out since the antigen present in the sample may be below the detection limit of the test. Imaging Imaging: Impressions Chest X-Ray 07/08/18 18:07 CONCLUSION: Suboptimal examination with hazy opacity in the left perihilar region and left lung base which could represent infiltrate or posterior layering effusion. Head CT 07/08/18 18:09 CONCLUSION: 1. Negative noncontrast head CT. . Chest CT 07/08/18 19:48 CONCLUSION: 1. No pneumonia or other acute cardiopulmonary disease demonstrated. 2. Enlarged, fatty liver. 3. Small hiatal hernia. Assessment and Plan Plan A/P Septic shock Fever of 103.1, tachycardia in the 120s, leukocytosis of 22, acute kidney injury with creatinine 1.8 from normal baseline. Diabetic foot ulcer on the right lower extremity. -Lactic acid within normal limits. -continue Broad-spectrum antibiotics for coverage of gram negatives, anaerobes, MRSA Follow-up blood cultures, urine cultures -continue with IV fluid -ID/ Podiatry consulted. Altered mental status on admission. Likely secondary to sepsis as well as sleep apnea. has improved. Suspected severe sleep apnea. Improved with CPAP. switched to BiPAP Right lower extremity diabetic foot ulcer - continue Antibiotics -podiatry consulted as noted above. Diabetes mellitus. Glucose elevated in the 200s. Diabetic diet and insulin sliding scale Hypomagnesemia. improved. Replace and monitor. Acute kidney injury/Hyperkalemia. Creatinine 1.8 from normal baseline. Secondary to sepsis. repeat potassium level.IV fluids and monitor. DVT prophylaxis; subq Heparin. Progress Note: Quality VTE Deep Vein Thrombosis/Pulmonary Embolism Present on Admission: No
[2018-07-09] MEDS: buPROPion 150 MG 12 HR Tablet PO SCH (09:08)
[2018-07-09] MEDS: Carisoprodol 350 MG Tablet PO SCH ×3 (09:08→17:29)
[2018-07-09] MEDS: Pantoprazole Sodium 20 MG DR Tablet PO SCH (09:08)
--- NOTE | 2018-07-09 09:37 | US ---
EXAM DATE: 07/09/2018 9:33 AM EST AGE/SEX: 48 years / Male INDICATIONS: Pain and swelling in legs. CLINICAL DATA: This is the patient's initial encounter. Patient reports that signs and symptoms have been present for 1 day and indicates a pain score of 4/10. MEDICAL/SURGICAL HISTORY: Gastroesophageal reflux disease. Hypertension. Diabetes mellitus ty pe II. Neuropathy. Overactive bladder. . Knee surgery. COMPARISON: [facility] [place], [place] LEG BILATERAL VENOUS DOPPLER, 02/08/2015. . TECHNIQUE: Venous ultrasound of both lower extremities was performed from the inguinal ligament to t he proximal calf. Real-time, color Doppler and spectral tracing, compression and augmentation techni ques were used. FINDINGS: This study was suboptimal due to the patient's large body habitus and edematous tissue rig ht greater than left. Visualization of the vascular structures was limited. Right Leg: Normal compression of the deep venous system from the inguinal region to the proximal danish f. No echogenic clot is seen. Normal response of the venous system to augmentation and respiration. Left Leg: Normal compression of the deep venous system from the inguinal region to the proximal calf . No echogenic clot is seen. Normal response of the venous system to augmentation and respiration. Other: Soft tissue edema is noted bilaterally right greater than left. CONCLUSION: 1. Suboptimal examination with decreased visualization. 2. No evidence of deep venous thrombosis. 3. Bilateral soft tissue edema right greater than left. Electronically signed by: John Lawson MD 07/09/2018 9:36 AM EST
[2018-07-09] MEDS: Magnesium Oxide 400 MG Tablet PO SCH ×2 (09:57→21:00)
[2018-07-09 10:06] LABS: ABG Base Excess -4.3 mmol/L (-2-2); ABG PCO2 37 mmHg (38-42); ABG PO2 82 mmHG (61-120)
[2018-07-09] MEDS ORDERED: Vancomycin Inj 2,500 MG in Sodium Chlor 0.9% Inj 500 ML IV.SIG ONE (11:00)
--- NOTE | 2018-07-09 11:47 | P.CONID ---
History of Present Illness Service: Infectious disease Consult date: 07/09/18 Requesting Physician: Stefan Galeana Reason for Consult: Evaluate patient with sepsis and cellulitis Primary Care Provider: Yrn Zamora MD History of Present Illness: Patient seen and examined. Records reviewed. Patient is a morbidly obese 48-year-old male, presented to the hospital after he was found with altered mental status. 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 He was just staring and nonverbal. He was also hypotensive. He was brought into the emergency room, and was given fluid resuscitation with improvement in his blood pressure. He also had a temperature of 103.1. Patient stated that he was not feeling good that day. Patient has multiple sores, he has some in his left upper extremity, and he states that he scratches a lot. However the wounds on the leg on the right he could not really determine how he developed them. He is currently complaining of pain in the right lower extremity. He has had problem with pain due to his sciatica but this is worse. Patient's mental status is markedly improved since his been in the hospital. He has a dry cough. Denies any chest pain. He has sleep apnea and used to be on a BiPAP machine but apparently he has not been using them. There is been no nausea or vomiting. No diarrhea. No urinary complaints. CT of the chest did not show any acute infiltrate. CT of the head is negative. Ultrasound did not show any DVT in the lower extremity. This morning 1 of the blood culture is now reported as growing gram-positive cocci in pairs and chains. Infectious disease consultation has been requested to assist with evaluation and treatment. Review of Systems Constitutional: Reports chills, Reports fever(s), Reports malaise, Reports weakness Eyes: Denies discharge, Denies dry eyes Ears, Nose, Mouth, and Throat: Reports headache(s), Reports sore throat, Denies dental pain, Denies difficulty swallowing, Denies nasal congestion, Denies nasal discharge, Denies pain with swallowing Cardiovascular: Reports leg swelling, Reports shortness of breath, Denies chest pain Respiratory: Reports cough, Reports shortness of breath, Denies chest congestion Gastrointestinal: Denies abdominal pain, Denies difficulty swallowing, Denies loose stools, Denies nausea, Denies pain with swallowing, Denies vomiting Genitourinary: Denies difficulty urinating, Denies painful urination Musculoskeletal: Reports back pain, Reports joint swelling Skin/Breast: Reports rash, Reports sores, Reports wounds Neurologic: Reports headache(s) PMFSH - History History Provided By: Patient - Medical History Medical History: Medical History (Last Updated 07/09/18 @ 11:39 by Precious Lewis MD) Sleep apnea Asthma GERD (gastroesophageal reflux disease) Hypertension Morbid obesity Neuropathy Overactive bladder Type 2 diabetes mellitus - Surgical History Surgical History: Surgical History (Last Reviewed 07/09/18 @ 11:39 by Precious Lewis MD) H/O knee surgery - Family History Family History: Family History (Last Reviewed 07/09/18 @ 11:39 by Precious Lewis MD) Other Family history unobtainable Family history unobtainable due to patient's condition - Tobacco History Second Hand Smoke Exposure: No Tobacco Use In Past 30 Days: Yes Smoking Status: Former smoker Tobacco Type: Cigarettes - Alcohol History How Often Do You Have a Drink Containing Alcohol: Never - Substance Use History Substance History: No History of Abuse - Travel History Recent Travel in the [place] Within the Last 8 Weeks: No Recent Travel Out of the Country Within the Last 8 Weeks: No - Immunization History Tetanus Immunization: <5 Years Medications and Allergies Active Medications: Active Medications Acetaminophen (Tylenol) 650 mg PO Q4H PRN PRN Reason: Temp > 100.4 Al Hydroxide/Mg Hydroxide (Milk Of Franci Farrell) 30 ml PO Q12H PRN PRN Reason: Mild Constipation Albuterol (Ventolin Hfa Inh) 2 puff INH Q4H PRN PRN Reason: Shortness Of Breath Alprazolam (Xanax) 0.5 mg PO BID PRN PRN Reason: Anxiety Bisacodyl (Dulcolax Supp) 10 mg RECTAL DAILY PRN PRN Reason: SEVERE CONSITIPATION Bupropion HCl (Wellbutrin Sr) 150 mg PO DAILY [facility] Last Admin: 07/09/18 09:08 Dose: 150 mg Carisoprodol (Soma) 350 mg PO TID [facility] Last Admin: 07/09/18 09:08 Dose: 350 mg Chlorhexidine Gluconate (Chlorhexidine 2% Cloth) 3 pack TOPICAL DAILY@0400 [facility] Stop: 07/14/18 03:59 Last Admin: 07/09/18 03:29 Dose: 3 pack Chlorhexidine Gluconate (Chlorhexidine 2% Cloth) 3 pack TOPICAL DAILY@0400 PRN PRN Reason: Extra cloth needed Stop: 07/14/18 03:59 Dextrose (D50w Vial) 50 ml IV.PUSH UNSCH PRN PRN Reason: PER HYPOGLYCEMIA PROTOCOL Glucagon (Glucagon Inj) 1 mg OTHER PRN PRN PRN Reason: for Hypoglycemia Protocol Heparin Sodium (Porcine) (Heparin Inj) 5,000 units SQ Q12H [facility] Last Admin: 07/09/18 10:34 Dose: 5,000 units Metronidazole/Sodium Chloride (Flagyl 500 Mg Inj) 100 mls @ 100 mls/hr IV.SIG Q6H [facility] Last Infusion: 07/09/18 08:01 Dose: Infused Aztreonam 2 gm/ Sodium (Chloride) 100 mls @ 200 mls/hr IV.SIG Q6H [facility] Last Infusion: 07/09/18 08:50 Dose: Infused Sodium Chloride (Ns Inj) 1,000 mls @ 100 mls/hr IV.CONT .Q10H [facility] Last Admin: 07/09/18 01:35 Dose: 70 mls/hr Vancomycin HCl 2,500 mg/ (Sodium Chloride) 525 mls @ 250 mls/hr IV.SIG ONCE ONE Stop: 07/09/18 13:05 Last Admin: 07/09/18 10:33 Dose: 250 mls/hr Insulin Aspart (Novolog Insulin Correctional Sugar Inj) 0 unit SQ ACHS [facility]; Protocol Last Admin: 07/09/18 08:23 Dose: 7 unit Lactulose (Lactulose Liq) 30 ml PO DAILY PRN PRN Reason: SEVERE CONSITIPATION Magnesium Oxide (Mag-Ox) 400 mg PO BID [facility] Last Admin: 07/09/18 09:57 Dose: 400 mg Ondansetron HCl (Zofran Inj) 4 mg IV.PUSH Q6H PRN PRN Reason: NAUSEA OR VOMITING Pantoprazole Sodium (Protonix) 20 mg PO DAILY [facility] Last Admin: 07/09/18 09:08 Dose: 20 mg Pharmacy Profile Note (Vancomycin Consult Pharmacy) 1 each OTHER UNSCH PRN PRN Reason: Pharmacy to dose Sennosides (Senokot) 17.2 mg PO Q12H PRN PRN Reason: Moderate Constipation Sodium Chloride (Ns Flush) 2 ml IV.FLUSH BID [facility] Last Admin: 07/09/18 09:08 Dose: Not Given Sodium Chloride (Ns Flush) 2 ml IV.FLUSH PRN PRN PRN Reason: FLUSH AFTER USING IV ACCESS Allergies Allergy/AdvReac Type Severity Reaction Status Date / Time peas Allergy Severe Anaphylaxis Verified 07/08/18 18:07 penicillin G Allergy Severe Anaphylaxis Verified 07/08/18 18:07 Sulfa (Sulfonamide Allergy Severe Anaphylaxis Verified 07/08/18 18:07 Antibiotics) *MDRO Multi-Drug Resistant AdvReac Unknown unknown Uncoded 07/08/18 18:07 Organism Home Medications Medication Instructions Recorded Confirmed Type albuterol sulfate [ProAir HFA] 2 puff INHALATION Q4H PRN 07/08/18 07/08/18 History alprazolam [Xanax] 0.5 mg PO BID PRN 07/08/18 07/08/18 History ascorbic acid (vitamin C) [Vitamin 1,000 mg PO DAILY 07/08/18 07/08/18 History C] bupropion HCl [Wellbutrin XL] 150 mg PO DAILY 07/08/18 07/08/18 History carisoprodol [Soma] 350 mg PO TID 07/08/18 07/08/18 History exenatide microspheres [Bydureon 2 mg SUBCUT Q7D 07/08/18 07/08/18 History BCise] gabapentin 1,200 mg PO BID 07/08/18 07/08/18 History gabapentin 600 mg PO DAILY 07/08/18 07/08/18 History ibuprofen 800 mg PO DAILY 07/08/18 07/08/18 History metformin 1,000 mg PO BID 07/08/18 07/08/18 History mirabegron [Myrbetriq] 50 mg PO DAILY 07/08/18 07/08/18 History multivit with [id number] [One 1 tab PO DAILY 07/08/18 07/08/18 History Daily For Men] omeprazole 20 mg PO DAILY 07/08/18 07/08/18 History potassium chloride 20 meq PO BID 07/08/18 07/08/18 History tramadol 50 mg PO Q8HR PRN 07/08/18 07/08/18 History Exam Vital signs: Vital Signs 07/08/18 18:07 07/08/18 18:15 07/08/18 18:56 Temperature 103.1 F H 103.1 F H Pulse Rate 123 H 126 H 121 H Respiratory Rate 24 24 24 Blood Pressure 127/54 L 136/58 L Pulse Oximetry 95 95 07/08/18 19:15 07/08/18 19:18 07/08/18 20:15 Temperature 101.5 F H Pulse Rate 120 H 116 H Respiratory Rate 24 20 Blood Pressure 112/55 L 87/48 L Pulse Oximetry 99 95 95 07/08/18 20:30 07/08/18 20:40 07/08/18 20:50 Temperature 101.8 F H 101.5 F H Pulse Rate 112 H 108 H 106 H Respiratory Rate 25 H 24 18 Blood Pressure 82/43 L 108/55 L 107/46 L Pulse Oximetry 95 98 99 07/08/18 21:05 07/08/18 21:15 07/08/18 21:25 Temperature 101.1 F H 100.8 F H Pulse Rate 100 H 102 H 104 H Respiratory Rate 18 20 18 Blood Pressure 98/44 L 80/43 L 98/70 L Pulse Oximetry 98 98 98 07/08/18 22:00 07/08/18 22:40 07/08/18 23:20 Temperature 100.0 F H 99.7 F H 99.0 F Pulse Rate 96 H 92 H 96 H Respiratory Rate 20 19 22 Blood Pressure 97/54 L 94/52 L 85/49 L Pulse Oximetry 97 95 95 07/09/18 00:00 07/09/18 00:20 07/09/18 01:00 Temperature 98.6 F 98.2 F 98.1 F Pulse Rate 86 92 H 90 Respiratory Rate 20 22 21 Blood Pressure 98/54 L 97/47 L 98/56 L Pulse Oximetry 95 94 L 97 07/09/18 01:20 07/09/18 01:50 07/09/18 02:29 Temperature 97.9 F 97.5 F L Pulse Rate 82 86 Respiratory Rate 16 20 Blood Pressure 107/56 L 112/58 L Pulse Oximetry 96 95 96 07/09/18 02:31 07/09/18 02:54 07/09/18 03:00 Temperature 97.7 F 97.5 F L Pulse Rate 83 83 Respiratory Rate 15 15 Blood Pressure Pulse Oximetry 95 99 98 07/09/18 03:01 07/09/18 03:06 07/09/18 03:07 Temperature 97.5 F L 97.5 F L 97.5 F L Pulse Rate 83 82 82 Respiratory Rate 15 18 17 Blood Pressure 77/45 L 78/44 L 77/44 L Pulse Oximetry 98 98 97 07/09/18 03:10 07/09/18 03:25 07/09/18 03:30 Temperature 97.5 F L 97.3 F L 97.3 F L Pulse Rate 81 81 81 Respiratory Rate 16 22 17 Blood Pressure 80/45 L 89/54 L 87/54 L Pulse Oximetry 98 99 100 07/09/18 03:45 07/09/18 03:57 07/09/18 04:00 Temperature 97.2 F L 97.2 F L 97.2 F L Pulse Rate 81 83 83 Respiratory Rate 18 22 18 Blood Pressure 86/50 L 110/54 L 112/57 L Pulse Oximetry 99 99 98 07/09/18 04:11 07/09/18 04:15 07/09/18 04:31 Temperature 97.1 F L 97.0 F L 97.2 F L Pulse Rate 83 81 Respiratory Rate 18 14 Blood Pressure 113/56 L 118/57 L Pulse Oximetry 98 100 07/09/18 04:45 07/09/18 04:48 07/09/18 05:00 Temperature 97.3 F L 97.7 F Pulse Rate 82 88 Respiratory Rate 15 30 H Blood Pressure 116/59 L 123/59 L Pulse Oximetry 88 L 100 100 07/09/18 05:15 07/09/18 05:31 07/09/18 05:37 Temperature 98.1 F 98.2 F 98.2 F Pulse Rate 81 80 Respiratory Rate 16 15 Blood Pressure 113/55 L 97/54 L Pulse Oximetry 100 98 07/09/18 05:45 07/09/18 06:00 07/09/18 06:15 Temperature 98.2 F 98.2 F 98.1 F Pulse Rate 80 80 79 Respiratory Rate 14 14 14 Blood Pressure 94/54 L 104/57 L 98/56 L Pulse Oximetry 99 99 99 07/09/18 07:00 07/09/18 08:00 07/09/18 09:00 Temperature 98.4 F 98.7 F 99.5 F Pulse Rate 80 89 92 H Respiratory Rate 14 15 24 Blood Pressure 101/61 117/61 114/65 Pulse Oximetry 100 100 96 07/09/18 09:57 07/09/18 10:00 Temperature 100 F H Pulse Rate 92 H Respiratory Rate 17 22 Blood Pressure 111/65 Pulse Oximetry 96 Intake & Output 07/08/18 07/09/18 07/09/18 18:59 06:59 18:59 Intake Total 100 / 100 5275.0 / 5275.0 200 / 200 Output Total 750 / 750 Balance 100 / 100 4525.0 / 4525.0 200 / 200 Weight 217.724 kg 228 kg Intake: IV 100 / 100 5275.0 / 5275.0 200 / 200 Ofirmev Inj 1,000 mg In 100 ml 100 / 100 @ 400 mls/hr IV.SIG ONCE ONE Rx #:[id number] Flexbumin 25% Inj 100 ML @ 60 100 / 100 mls/hr IV.SIG ONCE ONE Rx#: [id number] Azactam Inj 2 GM In NS Inj 100 200 / 200 100 / 100 ML @ 200 mls/hr IV.SIG Q6H [facility] Rx#:[id number] Levaquin 750 mg Premix Inj 150 150 / 150 ML @ 100 mls/hr IV.SIG ONCE ONE Rx#:[id number] Magnesium Sulfate Inj 2 GM In 100 / 100 NS Inj 96 ML @ 50 mls/hr IV.SIG ONCE ONE Rx#:[id number] NS Inj 1,000 ML @ 1000 mls/hr 4000 / 4000 IV.SIG BOLUS [facility] Rx#:[id number] Vancomycin Inj 1,250 MG In NS 525.0 / 525.0 Inj 250 ML @ 250 mls/hr IV.SIG ONCE ONE Rx#:[id number] Flagyl 500 MG Inj 100 ML @ 100 200 / 200 100 / 100 mls/hr IV.SIG Q6H [facility] Rx#: [id number] Output: Urine Amount (Catheter) 750 / 750 Indwelling Temp Sensing 750 / 750 Catheter Other: Weight On Admission 226 kg Narrative: Physical examination GENERAL: Patient is a morbidly obese, well-developed patient, awake and alert , not in respiratory distress. SKIN: Warm and dry. He has crusted wounds on his L forearm and L hand, C/W impetigo. He also has ulcers in his R leg HEAD: Atraumatic. Normocephalic. No temporal wasting, or tenderness. EYES: [place] conjunctiva. No petechia or hemorrhage. Pupils equal, round and reactive to light. Extraocular movements full and intact. No scleral icterus. No injection or drainage. EARS, NOSE AND THROAT: Nose without bleeding or purulent nasal discharge. No sinus tenderness. Mucous membranes pink and moist. No oral lesions noted. No exudate. No oral thrush. NECK: Trachea midline. Short and obese. Supple and not tender, no meningeal signs CARDIOVASCULAR: Regular rate and rhythm. No murmurs, rubs or gallops heard RESPIRATORY: Clear to auscultation. Breath sounds equal bilaterally. No rales , wheezing or rhonchi ABDOMEN: Soft, non-tender, nondistended. Bowel sounds present and normoactive. No guarding. No rebound. No organomegaly. EXTREMITIES: No clubbing, cyanosis. Has very large BLE, and RLE is larger compared to the LLE, and there is erythema from R foot up to R thigh, with lymphangitis. There is a pustule in R knee that is about 1 cm size. Tender whole R leg to palpation. Has brownish pigmentation to his R leg NEUROLOGICAL: Awake and alert. Cranial nerves grossly intact. Motor grossly within normal limits. PSYCHIATRIC: Normal affect, calm and cooperative. LINE: No evidence of infection Results - Labs CBC & Chem 7: 07/09/18 05:00 07/09/18 05:00 Labs: Laboratory Results - last 24 hr 07/08/18 07/08/18 07/08/18 18:15 18:15 18:55 WBC 22.0 H RBC 4.02 L Hgb 13.1 Hct 36.5 L MCV 90.6 MCH 32.5 MCHC 35.8 RDW 14.3 Plt Count 271 MPV 7.8 Prelim Diff (Auto) Slide review pending Neut % (Auto) 88.5 H Lymph % (Auto) 5.2 L [place] % (Auto) 5.2 Eos % (Auto) 0.8 Baso % (Auto) 0.3 Neut # (Auto) 19.5 H Lymph # (Auto) 1.1 Greene # (Auto) 1.1 H Eos # (Auto) 0.2 Baso # (Auto) 0.1 WBC Differential . Diff Scan Auto diff confirmed Differential Comment . Platelet Estimate Normal Platelet Morphology Normal PT INR APTT D-Dimer Quant (PE/DVT) Puncture Site Patient Temperature O2 Saturation ABG pH ABG pCO2 ABG pO2 ABG HCO3 ABG O2 Content ABG Base Excess ABG Methemoglobin Thor Test Hemoglobin Carboxyhemoglobin O2 Delivery Device Liter Flow Inspired O2 Critical Value Sodium Potassium Chloride Carbon Dioxide Anion Gap BUN Creatinine Estimated GFR POC Glucose Random Glucose Lactic Acid 2.0 Calcium Calcium Adj for Albumin Magnesium Total Bilirubin AST ALT Alkaline Phosphatase Total Creatine Kinase CK-MB (CK-2) Troponin I B-Natriuretic Peptide 8 Total Protein Albumin TSH Cortisol Urine Color Urine Clarity Urine pH Ur Specific [place] Urine Protein Urine Glucose (UA) Urine Ketones Urine Occult Blood Urine Nitrate Urine Bilirubin Urine Urobilinogen Ur Leukocyte Esterase Urine RBC Urine WBC Ur Squamous Epith Cells Amorphous Sediment Urine Bacteria Hyaline Casts Urine Mucus Micro UA Comment Ur Microscopic Review Urine Culture Comments Nasal Screen MRSA (PCR) 07/08/18 07/08/18 07/08/18 20:10 20:15 23:27 WBC RBC Hgb Hct MCV MCH MCHC RDW Plt Count MPV Prelim Diff (Auto) Neut % (Auto) Lymph % (Auto) [place] % (Auto) Eos % (Auto) Baso % (Auto) Neut # (Auto) Lymph # (Auto) Greene # (Auto) Eos # (Auto) Baso # (Auto) WBC Differential Diff Scan Differential Comment Platelet Estimate Platelet Morphology PT 10.3 INR 1.0 APTT 29.4 D-Dimer Quant (PE/DVT) Puncture Site Patient Temperature O2 Saturation ABG pH ABG pCO2 ABG pO2 ABG HCO3 ABG O2 Content ABG Base Excess ABG Methemoglobin Thor Test Hemoglobin Carboxyhemoglobin O2 Delivery Device Liter Flow Inspired O2 Critical Value Sodium 132 L Potassium 4.8 Chloride 103 Carbon Dioxide 19.9 L Anion Gap 9 BUN 32 H Creatinine 1.85 H Estimated GFR 39 L POC Glucose Random Glucose 227 H Lactic Acid Calcium 8.2 L Calcium Adj for Albumin Magnesium 1.0 L Total Bilirubin 0.5 AST 23 ALT 14 Alkaline Phosphatase 88 Total Creatine Kinase 253 CK-MB (CK-2) 3.3 Troponin I Less than 0.02 L B-Natriuretic Peptide Total Protein 7.0 Albumin 2.6 L TSH Cortisol Urine Color Ce Urine Clarity Cloudy H Urine pH 5.0 Ur Specific [place] 1.023 Urine Protein 500 or greater Urine Glucose (UA) 50 Urine Ketones Negative Urine Occult Blood Negative Urine Nitrate Negative Urine Bilirubin Negative Urine Urobilinogen 0.2 Ur Leukocyte Esterase Negative Urine RBC 4 H Urine WBC 9 H Ur Squamous Epith Cells 4 Amorphous Sediment Rare H Urine Bacteria Occasional H Hyaline Casts 81 Urine Mucus Many H Micro UA Comment Cath-culture ind Ur Microscopic Review Not Reportable Urine Culture Comments Cath-cult indicated Nasal Screen MRSA (PCR) 07/09/18 07/09/18 07/09/18 02:15 03:23 04:30 WBC RBC Hgb Hct MCV MCH MCHC RDW Plt Count MPV Prelim Diff (Auto) Neut % (Auto) Lymph % (Auto) [place] % (Auto) Eos % (Auto) Baso % (Auto) Neut # (Auto) Lymph # (Auto) Greene # (Auto) Eos # (Auto) Baso # (Auto) WBC Differential Diff Scan Differential Comment Platelet Estimate Platelet Morphology PT INR APTT D-Dimer Quant (PE/DVT) Puncture Site Right radial Patient Temperature 98.6 O2 Saturation 93 ABG pH 7.26 L* ABG pCO2 48 H ABG pO2 89 ABG HCO3 21 L ABG O2 Content 16.0 ABG Base Excess -5.3 L ABG Methemoglobin 1.5 Thor Test Present Hemoglobin 12.1 Carboxyhemoglobin 1.4 O2 Delivery Device Bipap 07/01/40% Liter Flow Inspired O2 40 Critical Value Yes Sodium Potassium Chloride Carbon Dioxide Anion Gap BUN Creatinine Estimated GFR POC Glucose 208 H Random Glucose Lactic Acid Calcium Calcium Adj for Albumin Magnesium Total Bilirubin AST ALT Alkaline Phosphatase Total Creatine Kinase CK-MB (CK-2) Troponin I B-Natriuretic Peptide Total Protein Albumin TSH Cortisol Urine Color Urine Clarity Urine pH Ur Specific [place] Urine Protein Urine Glucose (UA) Urine Ketones Urine Occult Blood Urine Nitrate Urine Bilirubin Urine Urobilinogen Ur Leukocyte Esterase Urine RBC Urine WBC Ur Squamous Epith Cells Amorphous Sediment Urine Bacteria Hyaline Casts Urine Mucus Micro UA Comment Ur Microscopic Review Urine Culture Comments Nasal Screen MRSA (PCR) Not detected 07/09/18 07/09/18 07/09/18 05:00 05:00 05:00 WBC 21.8 H RBC 4.07 L Hgb 12.0 L Hct 37.1 L MCV 91.2 MCH 29.5 MCHC 32.4 RDW 14.4 Plt Count 242 MPV 7.0 Prelim Diff (Auto) Neut % (Auto) 91.6 H Lymph % (Auto) 3.5 L [place] % (Auto) 3.9 Eos % (Auto) 0.5 Baso % (Auto) 0.5 Neut # (Auto) 20.0 H Lymph # (Auto) 0.8 L [place] # (Auto) 0.8 Eos # (Auto) 0.1 Baso # (Auto) 0.1 WBC Differential . Diff Scan Differential Comment Auto diff final Platelet Estimate Platelet Morphology PT INR APTT D-Dimer Quant (PE/DVT) Puncture Site Patient Temperature O2 Saturation ABG pH ABG pCO2 ABG pO2 ABG HCO3 ABG O2 Content ABG Base Excess ABG Methemoglobin Thor Test Hemoglobin Carboxyhemoglobin O2 Delivery Device Liter Flow Inspired O2 Critical Value Sodium 134 L Potassium 5.5 H Chloride 104 Carbon Dioxide 23.2 Anion Gap 7 BUN 34 H Creatinine 1.88 H Estimated GFR 38 L POC Glucose Random Glucose 204 H Lactic Acid Calcium 7.3 L* D Calcium Adj for Albumin 8.6 Magnesium 1.3 L Total Bilirubin 0.5 AST 49 H ALT 16 Alkaline Phosphatase 86 Total Creatine Kinase CK-MB (CK-2) Troponin I B-Natriuretic Peptide Total Protein 6.9 Albumin 2.4 L TSH 0.688 Cortisol 23.7 Urine Color Urine Clarity Urine pH Ur Specific [place] Urine Protein Urine Glucose (UA) Urine Ketones Urine Occult Blood Urine Nitrate Urine Bilirubin Urine Urobilinogen Ur Leukocyte Esterase Urine RBC Urine WBC Ur Squamous Epith Cells Amorphous Sediment Urine Bacteria Hyaline Casts Urine Mucus Micro UA Comment Ur Microscopic Review Urine Culture Comments Nasal Screen MRSA (PCR) 07/09/18 07/09/18 07/09/18 05:00 05:00 08:19 WBC RBC Hgb Hct MCV MCH MCHC RDW Plt Count MPV Prelim Diff (Auto) Neut % (Auto) Lymph % (Auto) [place] % (Auto) Eos % (Auto) Baso % (Auto) Neut # (Auto) Lymph # (Auto) [place] # (Auto) Eos # (Auto) Baso # (Auto) WBC Differential Diff Scan Differential Comment Platelet Estimate Platelet Morphology PT INR APTT D-Dimer Quant (PE/DVT) 2.08 H Puncture Site Patient Temperature O2 Saturation ABG pH ABG pCO2 ABG pO2 ABG HCO3 ABG O2 Content ABG Base Excess ABG Methemoglobin Thor Test Hemoglobin Carboxyhemoglobin O2 Delivery Device Liter Flow Inspired O2 Critical Value Sodium Potassium Chloride Carbon Dioxide Anion Gap BUN Creatinine Estimated GFR POC Glucose 265 H Random Glucose Lactic Acid 1.4 Calcium Calcium Adj for Albumin Magnesium Total Bilirubin AST ALT Alkaline Phosphatase Total Creatine Kinase CK-MB (CK-2) Troponin I B-Natriuretic Peptide Total Protein Albumin TSH Cortisol Urine Color Urine Clarity Urine pH Ur Specific [place] Urine Protein Urine Glucose (UA) Urine Ketones Urine Occult Blood Urine Nitrate Urine Bilirubin Urine Urobilinogen Ur Leukocyte Esterase Urine RBC Urine WBC Ur Squamous Epith Cells Amorphous Sediment Urine Bacteria Hyaline Casts Urine Mucus Micro UA Comment Ur Microscopic Review Urine Culture Comments Nasal Screen MRSA (PCR) 07/09/18 10:00 WBC RBC Hgb Hct MCV MCH MCHC RDW Plt Count MPV Prelim Diff (Auto) Neut % (Auto) Lymph % (Auto) [place] % (Auto) Eos % (Auto) Baso % (Auto) Neut # (Auto) Lymph # (Auto) [place] # (Auto) Eos # (Auto) Baso # (Auto) WBC Differential Diff Scan Differential Comment Platelet Estimate Platelet Morphology PT INR APTT D-Dimer Quant (PE/DVT) Puncture Site Right radial Patient Temperature 98.6 O2 Saturation 93 ABG pH 7.35 L ABG pCO2 37 L ABG pO2 82 ABG HCO3 20 L ABG O2 Content 15.8 ABG Base Excess -4.3 L ABG Methemoglobin 1.6 Thor Test Present Hemoglobin 12.0 Carboxyhemoglobin 1.3 O2 Delivery Device Nasal cannula Liter Flow 2.00 Inspired O2 Critical Value No Sodium Potassium Chloride Carbon Dioxide Anion Gap BUN Creatinine Estimated GFR POC Glucose Random Glucose Lactic Acid Calcium Calcium Adj for Albumin Magnesium Total Bilirubin AST ALT Alkaline Phosphatase Total Creatine Kinase CK-MB (CK-2) Troponin I B-Natriuretic Peptide Total Protein Albumin TSH Cortisol Urine Color Urine Clarity Urine pH Ur Specific [place] Urine Protein Urine Glucose (UA) Urine Ketones Urine Occult Blood Urine Nitrate Urine Bilirubin Urine Urobilinogen Ur Leukocyte Esterase Urine RBC Urine WBC Ur Squamous Epith Cells Amorphous Sediment Urine Bacteria Hyaline Casts Urine Mucus Micro UA Comment Ur Microscopic Review Urine Culture Comments Nasal Screen MRSA (PCR) - Imaging Impressions Chest X-Ray 07/08/18 18:07 CONCLUSION: Suboptimal examination with hazy opacity in the left perihilar region and left lung base which could represent infiltrate or posterior layering effusion. Head CT 07/08/18 18:09 CONCLUSION: 1. Negative noncontrast head CT. . Chest CT 07/08/18 19:48 CONCLUSION: 1. No pneumonia or other acute cardiopulmonary disease demonstrated. 2. Enlarged, fatty liver. 3. Small hiatal hernia. Venous Doppler Study 07/09/18 00:00 CONCLUSION: 1. Suboptimal examination with decreased visualization. 2. No evidence of deep venous thrombosis. 3. Bilateral soft tissue edema right greater than left. Assessment and Plan - Plan Impression Sepsis on presentation, BC with GPC, likely Strep, ?GAS Cellulitis RLE IMpetigo lesions on his LUE Morbid obesity Hx sleep apnea Allergy to PCN (severe) and Bactrim (rash) Recommendation Continue Vanco Also on Azactam - continue for now Repeat BC tomorrow C/S R knee wound Wound care Elevate RLE Short course of Clindamycin Follow C/S and adjust Abx Follow temps Monitor progress I will follow along with you Thank you for this consultation D/W RN
[2018-07-09] MEDS ORDERED: Clindamycin 900 mg/NS Premix 900 MG/50 ML PIGGYBACK IV.SIG SCH (12:00)
[2018-07-09] MEDS: Acetaminophen 325 MG Tablet PO PRN ×2 (13:00→16:55)
[2018-07-09] MEDS: Collagenase Oint 30 GM Tube TOPICAL SCH (14:28)
[2018-07-09] MEDS: Gabapentin 400 MG Capsule PO SCH (19:35)
--- NOTE | 2018-07-09 23:04 | MB ---
cc: Allyssa Miguel DPM DATE: 07/09/2018 REASON FOR CONSULTATION: Right leg wound. HISTORY OF PRESENT ILLNESS: The patient is a 48-year-old male who came in with EMS. He was worked up, and podiatry was consulted for a right leg wound. He relates that he is seeing wound care and a regulatory affairs strategy specialist at [facility] as well as a cigarette packer there. The patient denies any nausea, vomiting, fever, diarrhea, or chills at bedside this morning. His is present. Nursing staff present. REVIEW OF SYSTEMS: Per HPI. PAST MEDICAL HISTORY: Sleep apnea, asthma, GERD, hypertension, obesity, type 2 diabetes, right leg wound, venous insufficiency. PAST SURGICAL HISTORY: Knee surgery. Positive tobacco use. He denies illicit drugs. He denies alcohol. MEDICATIONS: Per chart. PHYSICAL EXAMINATION: Right-side lower extremity significant edema. There was no streaking. DP and PT are not palpable due to edema. LABORATORY DATA: WBC was 22, H and H 13 and 36.5. ASSESSMENT AND PLAN: 1. Right leg wound. 2. Venous insufficiency. 3. . RECOMMENDATIONS: At this point in time is to continue with Unna boots compression, antibiotics per ID. Likely will need a vascular consult venous insufficiency additional to his previous diagnoses and continue to follow while in-house. Upon discharge, he can follow with his previous cigarette packer and wound care physicians. Allyssa Miguel DPM SR/rm/do , 09:56 PM , 10:03 PM
[2018-07-10] MEDS: Sod Chloride 0.9% Inj 1,000 ML IV.CONT SCH ×2 (02:42→08:34)
[2018-07-10] MEDS: Aztreonam Inj 2 GM in Sodium Chloride 0.9% Inj 100 ML IV.SIG SCH ×4 (02:42→20:15)
[2018-07-10] MEDS: Acetaminophen 325 MG Tablet PO PRN (02:47)
[2018-07-10] MEDS: Chlorhexidine Gluconate 2% 1 Pack (2 Cloths) TOPICAL SCH (04:00)
[2018-07-10 07:42] LABS: Baso # (Auto) 0.1 th/mm3 (0.0-0.2); Baso % (Auto) 0.4 % (0.0-2.0); Eos # (Auto) 0.3 th/mm3 (0.0-0.4); Eos % (Auto) 2.4 % (0.0-4.0); Hematocrit 36.1 % (39.0-51.0); Hemoglobin 11.9 gm/dL (13.0-17.0); Lymph # (Auto) 1.2 th/mm3 (1.0-4.8); Lymph % (Auto) 8.1 % (9.0-44.0); Mean Corpuscular HGB Conc 33.1 % (32.0-36.0); Mean Corpuscular Hemoglobin 30.4 pg (27.0-34.0); Mean Corpuscular Volume 91.9 fL (80.0-100.0); Mean Platelet Volume 7.5 fL (7.0-11.0); Mono # (Auto) 0.9 th/mm3 (0.0-0.9); Neut # (Auto) 11.9 th/mm3 (1.8-7.7); Neut % (Auto) 83.1 % (16.0-70.0); Platelet Count 233 th/mm3 (150-450); Red Blood Count 3.93 mil/mm3 (4.50-5.90); Red Cell Distribution Width 14.5 % (11.6-17.2); White Blood Count 14.3 th/mm3 (4.0-11.0)
[2018-07-10 08:21] LABS: Calcium 7.6 mg/dL (8.5-10.1); Carbon Dioxide 24.7 meq/L (21.0-32.0); Magnesium 1.7 mg/dL (1.5-2.5); Potassium 4.3 meq/L (3.5-5.1); Vancomycin,Random 9.2 Comment
[2018-07-10] MEDS: Insulin NovoLOG Aspart Correctional Sugar Inj SQ SCH ×4 (08:28→21:51)
[2018-07-10] MEDS: Carisoprodol 350 MG Tablet PO SCH ×3 (08:30→17:28)
[2018-07-10] MEDS: Gabapentin 400 MG Capsule PO SCH ×3 (08:30→17:29)
[2018-07-10] MEDS: Pantoprazole Sodium 20 MG DR Tablet PO SCH (08:30)
[2018-07-10] MEDS: buPROPion 150 MG 12 HR Tablet PO SCH (08:30)
[2018-07-10] MEDS: Magnesium Oxide 400 MG Tablet PO SCH ×2 (08:30→21:30)
[2018-07-10] MEDS: Collagenase Oint 30 GM Tube TOPICAL SCH (08:31)
--- NOTE | 2018-07-10 09:49 | P.PN ---
Subjective Interval history: Follow-up sepsis/right lower extremity cellulitis/acute metabolic encephalopathy /NETO July 10, 2018-patient seen and examined, alert and oriented x3, currently afebrile, denies any shortness of breath. Taking p.o. well Physical Exam Vital signs: Vital Signs 07/09/18 09:57 07/09/18 10:00 07/09/18 12:00 Temperature 100 F H 100.4 F H Pulse Rate 92 H 94 H Respiratory Rate 17 22 20 Blood Pressure 111/65 163/69 H Pulse Oximetry 96 96 07/09/18 13:00 07/09/18 14:00 07/09/18 14:28 Temperature 100.9 F H 101.1 F H Pulse Rate 95 H 97 H Respiratory Rate 24 25 H 17 Blood Pressure 115/61 117/57 L Pulse Oximetry 94 L 94 L 07/09/18 15:00 07/09/18 16:00 07/09/18 17:00 Temperature 100.9 F H 100.9 F H 100.7 F H Pulse Rate 96 H 93 H 95 H Respiratory Rate 20 20 23 Blood Pressure 124/76 121/57 L 132/70 Pulse Oximetry 94 L 94 L 95 07/09/18 18:00 07/09/18 18:05 07/09/18 19:00 Temperature 100.4 F H 100.2 F H Pulse Rate 98 H 95 H Respiratory Rate 22 22 20 Blood Pressure 118/84 118/58 L Pulse Oximetry 95 93 L 07/09/18 19:31 07/09/18 20:00 07/09/18 20:31 Temperature 99.9 F H 99.7 F H 99.5 F Pulse Rate 93 H 92 H 92 H Respiratory Rate 20 22 21 Blood Pressure 144/65 H 113/60 97/46 L Pulse Oximetry 95 97 94 L 07/09/18 20:52 07/09/18 21:00 07/09/18 21:30 Temperature 99.5 F 99.1 F Pulse Rate 90 90 Respiratory Rate 21 19 Blood Pressure 142/64 H 141/63 H Pulse Oximetry 98 98 97 07/09/18 22:00 07/09/18 22:30 07/09/18 23:00 Temperature 99.1 F 99.1 F 99.0 F Pulse Rate 90 92 H 90 Respiratory Rate 20 19 21 Blood Pressure 143/65 H 141/61 H 130/59 L Pulse Oximetry 96 96 94 L 07/09/18 23:30 07/10/18 00:00 07/10/18 00:01 Temperature 99.0 F 99.1 F 99.1 F Pulse Rate 91 H 90 91 H Respiratory Rate 22 19 19 Blood Pressure 137/63 150/68 H Pulse Oximetry 98 99 98 07/10/18 00:30 07/10/18 01:00 07/10/18 01:30 Temperature 99.1 F 99.3 F 99.3 F Pulse Rate 92 H 91 H 92 H Respiratory Rate 18 19 18 Blood Pressure 127/58 L 126/59 L 135/62 Pulse Oximetry 97 96 99 07/10/18 02:00 07/10/18 02:30 07/10/18 03:00 Temperature 99.3 F 99.5 F 99.5 F Pulse Rate 93 H 91 H 92 H Respiratory Rate 16 18 18 Blood Pressure 141/80 H 136/62 133/61 Pulse Oximetry 97 97 98 07/10/18 03:30 07/10/18 03:43 07/10/18 04:00 Temperature 99.5 F 99.5 F Pulse Rate 90 87 Respiratory Rate 18 18 Blood Pressure 138/59 L 142/63 H Pulse Oximetry 97 98 98 07/10/18 04:30 07/10/18 05:00 07/10/18 05:01 Temperature 99.3 F 99.1 F 99.1 F Pulse Rate 89 87 89 Respiratory Rate 18 16 17 Blood Pressure 140/63 114/53 L Pulse Oximetry 96 97 96 07/10/18 05:30 07/10/18 06:00 07/10/18 08:00 Temperature 99.0 F 99.0 F Pulse Rate 87 87 85 Respiratory Rate 17 16 Blood Pressure 125/58 L 121/58 L Pulse Oximetry 95 98 97 07/10/18 08:25 Temperature Pulse Rate Respiratory Rate Blood Pressure Pulse Oximetry 97 Intake & Output 07/09/18 07/10/18 07/10/18 18:59 06:59 18:59 Intake Total 3371 / 3371 1955 / 1955 1000 / 1000 Output Total 1974 2650 / 2650 Balance 1396 / 1396 -694 / -694 1000 / 1000 Weight 227.3 kg Intake: IV 193 / 193 1306 / 1306 1000 / 1000 NS Inj 1,000 ML @ 100 mls/hr IV 1000 / 1000 1000 / 1000 1000 / 1000 .CONT .Q10H COUNT INCLUDES THE [facility] Rx#:[id number] Azactam Inj 2 GM In NS Inj 100 200 / 200 200 / 200 ML @ 200 mls/hr IV.SIG Q6H COUNT INCLUDES THE [facility] Rx#:[id number] Cleocin Inj 900 MG In NS Inj 106 / 106 106 / 106 100 ML @ 100 mls/hr IV.SIG Q8H COUNT INCLUDES THE [facility] Rx#:[id number] Vancomycin Inj 2,500 MG In NS 525 / 525 Inj 500 ML @ 250 mls/hr IV.SIG ONCE ONE Rx#:[id number] Flagyl 500 MG Inj 100 ML @ 100 100 / 100 mls/hr IV.SIG Q6H COUNT INCLUDES THE [facility] Rx#: [id number] Oral 1440 / 1440 650 / 650 Output: Urine Amount (Catheter) 1974 2650 / 2650 Indwelling Temp Sensing 1974 2650 / 2650 Catheter Narrative: GENERAL: Patient is a morbidly obese in NAD SKIN: Warm and dry. He has crusted wounds on his L forearm and L hand, C/W impetigo. He also has ulcers in his R leg HEAD: Atraumatic. Normocephalic. No temporal wasting, or tenderness. EYES: [place] conjunctiva. No petechia or hemorrhage. Pupils equal, round and reactive to light. Extraocular movements full and intact. No scleral icterus. No injection or drainage. EARS, NOSE AND THROAT: Nose without bleeding or purulent nasal discharge. No sinus tenderness. Mucous membranes pink and moist. No oral lesions noted. No exudate. No oral thrush. NECK: Trachea midline. Short and obese. Supple and not tender, no meningeal signs CARDIOVASCULAR: Regular rate and rhythm. No murmurs, rubs or gallops heard RESPIRATORY: Clear to auscultation. Breath sounds equal bilaterally. No rales , wheezing or rhonchi ABDOMEN: Soft, non-tender, nondistended. Bowel sounds present and normoactive. No guarding. No rebound. No organomegaly. EXTREMITIES: No clubbing, cyanosis. Has very large BLE, and RLE is larger compared to the LLE, and there is erythema from R foot up to R thigh, with lymphangitis. There is a pustule in R knee that is about 1 cm size. Tender whole R leg to palpation. Has brownish pigmentation to his R leg NEUROLOGICAL: Awake and alert. Cranial nerves grossly intact. Motor grossly within normal limits. PSYCHIATRIC: Normal affect, calm and cooperative. - Urinary Catheter Management Indwelling Temp Sensing Catheter Cath placed during this visit: yes, but has since been removed by the nurse Reason for continuing: Decision to DC catheter Insertion date: 07/08/18 Insertion time: 20:05 Removal date: 07/10/18 Removal time: 09:10 Results - Labs CBC & Chem 7: 07/10/18 05:53 07/10/18 05:53 Laboratory Results - last 24 hr 07/09/18 07/09/18 07/09/18 10:00 10:47 11:35 WBC RBC Hgb Hct MCV MCH MCHC RDW Plt Count MPV Neut % (Auto) Lymph % (Auto) [place] % (Auto) Eos % (Auto) Baso % (Auto) Neut # (Auto) Lymph # (Auto) [place] # (Auto) Eos # (Auto) Baso # (Auto) WBC Differential Differential Comment Puncture Site Right radial Patient Temperature 98.6 O2 Saturation 93 ABG pH 7.35 L ABG pCO2 37 L ABG pO2 82 ABG HCO3 20 L ABG O2 Content 15.8 ABG Base Excess -4.3 L ABG Methemoglobin 1.6 Thor Test Present Hemoglobin 12.0 Carboxyhemoglobin 1.3 O2 Delivery Device Nasal cannula Liter Flow 2.00 Critical Value No Sodium Potassium 4.6 D Chloride Carbon Dioxide Anion Gap BUN Creatinine Estimated GFR POC Glucose 233 H Random Glucose Calcium Magnesium Random Vancomycin 07/09/18 07/09/18 07/10/18 16:52 19:34 05:53 WBC RBC Hgb Hct MCV MCH MCHC RDW Plt Count MPV Neut % (Auto) Lymph % (Auto) [place] % (Auto) Eos % (Auto) Baso % (Auto) Neut # (Auto) Lymph # (Auto) [place] # (Auto) Eos # (Auto) Baso # (Auto) WBC Differential Differential Comment Puncture Site Patient Temperature O2 Saturation ABG pH ABG pCO2 ABG pO2 ABG HCO3 ABG O2 Content ABG Base Excess ABG Methemoglobin Htor Test Hemoglobin Carboxyhemoglobin O2 Delivery Device Liter Flow Critical Value Sodium 136 Potassium 4.3 Chloride 106 Carbon Dioxide 24.7 Anion Gap 5 BUN 20 H Creatinine 1.06 Estimated GFR 74 L POC Glucose 273 H 262 H Random Glucose 191 H Calcium 7.6 L Magnesium 1.7 Random Vancomycin 9.2 07/10/18 07/10/18 05:53 07:33 WBC 14.3 H RBC 3.93 L Hgb 11.9 L Hct 36.1 L MCV 91.9 MCH 30.4 MCHC 33.1 RDW 14.5 Plt Count 233 MPV 7.5 Neut % (Auto) 83.1 H Lymph % (Auto) 8.1 L [place] % (Auto) 6.0 Eos % (Auto) 2.4 Baso % (Auto) 0.4 Neut # (Auto) 11.9 H Lymph # (Auto) 1.2 [place] # (Auto) 0.9 Eos # (Auto) 0.3 Baso # (Auto) 0.1 WBC Differential . Differential Comment Auto diff final Puncture Site Patient Temperature O2 Saturation ABG pH ABG pCO2 ABG pO2 ABG HCO3 ABG O2 Content ABG Base Excess ABG Methemoglobin Thor Test Hemoglobin Carboxyhemoglobin O2 Delivery Device Liter Flow Critical Value Sodium Potassium Chloride Carbon Dioxide Anion Gap BUN Creatinine Estimated GFR POC Glucose 181 H Random Glucose Calcium Magnesium Random Vancomycin Microbiology 07/08/18 18:15 Blood - Peripheral Aerobic Blood Culture - Preliminary gram positive cocci 07/08/18 18:15 Blood - Peripheral Anaerobic Blood Culture - Preliminary Group A beta Strep 07/08/18 20:10 Catheterized Urine Urine Culture - Preliminary No growth in 24 hours 07/08/18 19:00 Blood - Peripheral Aerobic Blood Culture - Preliminary No growth in 1 day 07/08/18 19:00 Blood - Peripheral Anaerobic Blood Culture - Preliminary No growth in 1 day 07/08/18 20:50 Abscess - Leg Gram Stain - Final Assessment and Plan - Plan 48-year-old man with Sepsis: Secondary to right lower extremity cellulitis Currently on vancomycin and Azactam per ID pending culture report Right lower extremity cellulitis Diabetic foot ulcer Consult placed for podiatry Continue with Azactam and vancomycin pending culture report Appreciate input from ID Wound care dressing change per protocol Acute metabolic encephalopathy Resolved Obstructive sleep apnea Continue with BiPAP at night Respiratory failure-resolved Continue DuoNeb scheduled and as needed Diabetes type 2 Oral antihyperglycemic agent currently on hold Continue with insulin sliding scale with fingerstick blood glucose monitoring Morbid obesity Counselled on total lifestyle change modification Hypomagnesemia. improved. Replace and monitor. Acute kidney injury/Hyperkalemia. Renal indices improving, patient back to baseline DVT prophylaxis; subq Heparin. Transfer to [facility] to treat and eval
[2018-07-10] MEDS: Nystatin 100,000 UNITS/GM Powder 15 GM Bottle TOPICAL SCH ×4 (10:41→21:35)
[2018-07-10] MEDS: Vancomycin Inj 2,500 MG in Sodium Chlor 0.9% Inj 500 ML IV.SIG SCH ×2 (10:41→21:54)
[2018-07-10] MEDS: Heparin - SQ 10,000 UNITS/ML Vial SQ SCH ×2 (10:42→21:46)
--- NOTE | 2018-07-10 14:06 | P.PNID ---
Subjective Remarks: Patient is a morbidly obese 48-year-old male, presented to the hospital after he was found with altered mental status. 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 He was just staring and nonverbal. He was also hypotensive. He was brought into the emergency room, and was given fluid resuscitation with improvement in his blood pressure. He also had a temperature of 103.1. Patient stated that he was not feeling good that day. Patient has multiple sores, he has some in his left upper extremity, and he states that he scratches a lot. However the wounds on the leg on the right he could not really determine how he developed them. He is currently complaining of pain in the right lower extremity. He has had problem with pain due to his sciatica but this is worse. Patient's mental status is markedly improved since his been in the hospital. He has a dry cough. Denies any chest pain. He has sleep apnea and used to be on a BiPAP machine but apparently he has not been using them. There is been no nausea or vomiting. No diarrhea. No urinary complaints. CT of the chest did not show any acute infiltrate. CT of the head is negative. Ultrasound did not show any DVT in the lower extremity. This morning 1 of the blood culture is now reported as growing gram-positive cocci in pairs and chains. Infectious disease consultation has been requested to assist with evaluation and treatment. Notes reviewed Temps low grade BP ok Pain RLE BC with GAS Wound R knee - GAS Wound R leg - GAS and Staph aureus WBC lower Antibiotics: Vancomycin Clindamycin Azactam Past Medical History: Sleep apnea Asthma GERD (gastroesophageal reflux disease) Hypertension Morbid obesity Neuropathy Overactive bladder Type 2 diabetes mellitus Knee surgery Allergies/Adverse Reactions: Allergies peas Allergy (Severe, Verified 07/08/18 18:07) Anaphylaxis penicillin G Allergy (Severe, Verified 07/08/18 18:07) Anaphylaxis Sulfa (Sulfonamide Antibiotics) Allergy (Severe, Verified 07/08/18 18:07) Anaphylaxis *MDRO Multi-Drug Resistant Organism Adverse Reaction (Unknown, Uncoded 07/08/18 18:07) unknown MRSA PCR Screen negative 02/09/15 and 02/13/15. Cleared per Infection Control. Objective Vital Signs 07/09/18 14:28 07/09/18 15:00 07/09/18 16:00 Temperature 100.9 F H 100.9 F H Pulse Rate 96 H 93 H Respiratory Rate 17 20 20 Blood Pressure 124/76 121/57 L Pulse Oximetry 94 L 94 L 07/09/18 17:00 07/09/18 18:00 07/09/18 18:05 Temperature 100.7 F H 100.4 F H Pulse Rate 95 H 98 H Respiratory Rate 23 22 22 Blood Pressure 132/70 118/84 Pulse Oximetry 95 95 07/09/18 19:00 07/09/18 19:31 07/09/18 20:00 Temperature 100.2 F H 99.9 F H 99.7 F H Pulse Rate 95 H 93 H 92 H Respiratory Rate 20 20 22 Blood Pressure 118/58 L 144/65 H 113/60 Pulse Oximetry 93 L 95 97 07/09/18 20:31 07/09/18 20:52 07/09/18 21:00 Temperature 99.5 F 99.5 F Pulse Rate 92 H 90 Respiratory Rate 21 21 Blood Pressure 97/46 L 142/64 H Pulse Oximetry 94 L 98 98 07/09/18 21:30 07/09/18 22:00 07/09/18 22:30 Temperature 99.1 F 99.1 F 99.1 F Pulse Rate 90 90 92 H Respiratory Rate 19 20 19 Blood Pressure 141/63 H 143/65 H 141/61 H Pulse Oximetry 97 96 96 07/09/18 23:00 07/09/18 23:30 07/10/18 00:00 Temperature 99.0 F 99.0 F 99.1 F Pulse Rate 90 91 H 90 Respiratory Rate 21 22 19 Blood Pressure 130/59 L 137/63 Pulse Oximetry 94 L 98 99 07/10/18 00:01 07/10/18 00:30 07/10/18 01:00 Temperature 99.1 F 99.1 F 99.3 F Pulse Rate 91 H 92 H 91 H Respiratory Rate 19 18 19 Blood Pressure 150/68 H 127/58 L 126/59 L Pulse Oximetry 98 97 96 07/10/18 01:30 07/10/18 02:00 07/10/18 02:30 Temperature 99.3 F 99.3 F 99.5 F Pulse Rate 92 H 93 H 91 H Respiratory Rate 18 16 18 Blood Pressure 135/62 141/80 H 136/62 Pulse Oximetry 99 97 97 07/10/18 03:00 07/10/18 03:30 07/10/18 03:43 Temperature 99.5 F 99.5 F Pulse Rate 92 H 90 Respiratory Rate 18 18 Blood Pressure 133/61 138/59 L Pulse Oximetry 98 97 98 07/10/18 04:00 07/10/18 04:30 07/10/18 05:00 Temperature 99.5 F 99.3 F 99.1 F Pulse Rate 87 89 87 Respiratory Rate 18 18 16 Blood Pressure 142/63 H 140/63 Pulse Oximetry 98 96 97 07/10/18 05:01 07/10/18 05:30 07/10/18 06:00 Temperature 99.1 F 99.0 F 99.0 F Pulse Rate 89 87 87 Respiratory Rate 17 17 16 Blood Pressure 114/53 L 125/58 L 121/58 L Pulse Oximetry 96 95 98 07/10/18 06:30 07/10/18 07:00 07/10/18 07:30 Temperature 99.1 F 99.1 F 99.3 F Pulse Rate 91 H 89 86 Respiratory Rate 19 25 H 23 Blood Pressure 117/68 127/67 143/66 H Pulse Oximetry 94 L 94 L 95 07/10/18 08:00 07/10/18 08:25 07/10/18 08:31 Temperature 99.1 F 99.1 F Pulse Rate 85 89 Respiratory Rate 19 18 Blood Pressure 128/60 114/56 L Pulse Oximetry 94 L 97 95 07/10/18 09:00 07/10/18 09:30 07/10/18 10:00 Temperature 99.1 F Pulse Rate 87 90 89 Respiratory Rate 20 23 20 Blood Pressure 117/62 129/74 124/60 Pulse Oximetry 94 L 94 L 98 07/10/18 10:30 07/10/18 11:00 07/10/18 11:32 Temperature Pulse Rate 88 92 H 91 H Respiratory Rate 20 21 22 Blood Pressure 137/61 131/66 117/50 L Pulse Oximetry 92 L 94 L 94 L 07/10/18 11:40 07/10/18 12:00 07/10/18 12:01 Temperature 99.8 F H Pulse Rate 91 H 92 H 92 H Respiratory Rate 25 H 24 22 Blood Pressure 95/53 L 97/56 L Pulse Oximetry 94 L 94 L 94 L 07/10/18 12:31 Temperature Pulse Rate 93 H Respiratory Rate 26 H Blood Pressure 105/81 Pulse Oximetry 95 Intake & Output 07/09/18 07/10/18 07/10/18 18:59 06:59 18:59 Intake Total 3371 / 3371 1955 / 1955 1206 / 1206 Output Total 1974 2650 / 2650 Balance 1396 / 1396 -694 / -694 1206 / 1206 Weight 227.3 kg Intake: IV 1931 / 1931 1306 / 1306 1206 / 1206 NS Inj 1,000 ML @ 100 mls/hr IV 1000 / 1000 1000 / 1000 1000 / 1000 .CONT .Q10H [facility] Rx#:[id number] Azactam Inj 2 GM In NS Inj 100 200 / 200 200 / 200 100 / 100 ML @ 200 mls/hr IV.SIG Q6H [facility]LEX Rx#:[id number] Cleocin Inj 900 MG In NS Inj 106 / 106 106 / 106 106 / 106 100 ML @ 100 mls/hr IV.SIG Q8H [facility] Rx#:[id number] Vancomycin Inj 2,500 MG In NS 525 / 525 Inj 500 ML @ 250 mls/hr IV.SIG ONCE ONE Rx#:[id number] Flagyl 500 MG Inj 100 ML @ 100 100 / 100 mls/hr IV.SIG Q6H [facility] Rx#: [id number] Oral 1440 / 1440 650 / 650 Output: Urine Amount (Catheter) 1974 2650 / 2650 Indwelling Temp Sensing 1974 2650 / 2650 Catheter 07/09/18 11:30 Wound - Knee Gram Stain - Final 07/09/18 11:30 Wound - Knee Wound Culture - Preliminary Group A beta Strep 07/08/18 19:00 Blood - Peripheral Aerobic Blood Culture - Preliminary No growth in 2 days 07/08/18 19:00 Blood - Peripheral Anaerobic Blood Culture - Preliminary No growth in 2 days 07/08/18 20:50 Abscess - Leg Gram Stain - Final 07/08/18 20:50 Abscess - Leg Wound Culture - Preliminary Group A beta Strep Staphylococcus aureus 07/08/18 20:10 Catheterized Urine Urine Culture - Final No growth in 48 hours 07/08/18 18:15 Blood - Peripheral Aerobic Blood Culture - Preliminary gram positive cocci 07/08/18 18:15 Blood - Peripheral Anaerobic Blood Culture - Preliminary Group A beta Strep 07/10/18 05:53 Blood - Peripheral Aerobic Blood Culture - Pending 07/10/18 05:53 Blood - Peripheral Anaerobic Blood Culture - Pending 07/08/18 19:00 Nasal Wash Influenza Types A,B Antigen - Final Negative for FLU A and B antigen Infection due to influenza A or B cannot be ruled out since the antigen present in the sample may be below the detection limit of the test. Lab - Hematology Results 07/08/18 07/09/18 07/10/18 18:15 05:00 05:53 WBC 22.0 H 21.8 H 14.3 H RBC 4.02 L 4.07 L 3.93 L Hgb 13.1 12.0 L 11.9 L Hct 36.5 L 37.1 L 36.1 L MCV 90.6 91.2 91.9 MCH 32.5 29.5 30.4 MCHC 35.8 32.4 33.1 RDW 14.3 14.4 14.5 Plt Count 271 242 233 MPV 7.8 7.0 7.5 Prelim Diff (Auto) Slide review pending Neut % (Auto) 88.5 H 91.6 H 83.1 H Lymph % (Auto) 5.2 L 3.5 L 8.1 L [place] % (Auto) 5.2 3.9 6.0 Eos % (Auto) 0.8 0.5 2.4 Baso % (Auto) 0.3 0.5 0.4 Neut # (Auto) 19.5 H 20.0 H 11.9 H Lymph # (Auto) 1.1 0.8 L 1.2 [place] # (Auto) 1.1 H 0.8 0.9 Eos # (Auto) 0.2 0.1 0.3 Baso # (Auto) 0.1 0.1 0.1 WBC Differential . . . Diff Scan Auto diff confirmed Differential Comment . Auto diff final Auto diff final Platelet Estimate Normal Platelet Morphology Normal Lab - Chemistry Results 07/08/18 07/08/18 07/08/18 18:15 18:55 20:15 Sodium 132 L Potassium 4.8 Chloride 103 Carbon Dioxide 19.9 L Anion Gap 9 BUN 32 H Creatinine 1.85 H Estimated GFR 39 L POC Glucose Random Glucose 227 H Lactic Acid 2.0 Calcium 8.2 L Calcium Adj for Albumin Magnesium 1.0 L Total Bilirubin 0.5 AST 23 ALT 14 Alkaline Phosphatase 88 Total Creatine Kinase 253 CK-MB (CK-2) 3.3 Troponin I Less than 0.02 L B-Natriuretic Peptide 8 Total Protein 7.0 Albumin 2.6 L TSH Cortisol 07/09/18 07/09/18 07/09/18 03:23 05:00 05:00 Sodium 134 L Potassium 5.5 H Chloride 104 Carbon Dioxide 23.2 Anion Gap 7 BUN 34 H Creatinine 1.88 H Estimated GFR 38 L POC Glucose 208 H Random Glucose 204 H Lactic Acid Calcium 7.3 L* D Calcium Adj for Albumin 8.6 Magnesium 1.3 L Total Bilirubin 0.5 AST 49 H ALT 16 Alkaline Phosphatase 86 Total Creatine Kinase CK-MB (CK-2) Troponin I B-Natriuretic Peptide Total Protein 6.9 Albumin 2.4 L TSH 0.688 Cortisol 23.7 07/09/18 07/09/18 07/09/18 05:00 08:19 10:47 Sodium Potassium 4.6 D Chloride Carbon Dioxide Anion Gap BUN Creatinine Estimated GFR POC Glucose 265 H Random Glucose Lactic Acid 1.4 Calcium Calcium Adj for Albumin Magnesium Total Bilirubin AST ALT Alkaline Phosphatase Total Creatine Kinase CK-MB (CK-2) Troponin I B-Natriuretic Peptide Total Protein Albumin TSH Cortisol 07/09/18 07/09/18 07/09/18 11:35 16:52 19:34 Sodium Potassium Chloride Carbon Dioxide Anion Gap BUN Creatinine Estimated GFR POC Glucose 233 H 273 H 262 H Random Glucose Lactic Acid Calcium Calcium Adj for Albumin Magnesium Total Bilirubin AST ALT Alkaline Phosphatase Total Creatine Kinase CK-MB (CK-2) Troponin I B-Natriuretic Peptide Total Protein Albumin TSH Cortisol 07/10/18 07/10/18 07/10/18 05:53 07:33 11:45 Sodium 136 Potassium 4.3 Chloride 106 Carbon Dioxide 24.7 Anion Gap 5 BUN 20 H Creatinine 1.06 Estimated GFR 74 L POC Glucose 181 H 242 H Random Glucose 191 H Lactic Acid Calcium 7.6 L Calcium Adj for Albumin Magnesium 1.7 Total Bilirubin AST ALT Alkaline Phosphatase Total Creatine Kinase CK-MB (CK-2) Troponin I B-Natriuretic Peptide Total Protein Albumin TSH Cortisol Imaging: ITS Impressions Chest X-Ray 07/08/18 18:07 CONCLUSION: Suboptimal examination with hazy opacity in the left perihilar region and left lung base which could represent infiltrate or posterior layering effusion. Head CT 07/08/18 18:09 CONCLUSION: 1. Negative noncontrast head CT. . Chest CT 07/08/18 19:48 CONCLUSION: 1. No pneumonia or other acute cardiopulmonary disease demonstrated. 2. Enlarged, fatty liver. 3. Small hiatal hernia. Venous Doppler Study 07/09/18 00:00 CONCLUSION: 1. Suboptimal examination with decreased visualization. 2. No evidence of deep venous thrombosis. 3. Bilateral soft tissue edema right greater than left. Physical Exam: GENERAL: Patient is a morbidly obese, well-developed patient, awake and alert , NAD SKIN: Warm and dry. He has crusted wounds on his L forearm and L hand, C/W impetigo. He also has ulcers in his R leg HEAD: Atraumatic. Normocephalic. No temporal wasting, or tenderness. EYES: [place] conjunctiva. No petechia or hemorrhage. Pupils equal, round and reactive to light. Extraocular movements full and intact. No scleral icterus. No injection or drainage. EARS, NOSE AND THROAT: Nose without bleeding or purulent nasal discharge. No sinus tenderness. Mucous membranes pink and moist. No oral lesions noted. No exudate. No oral thrush. NECK: Trachea midline. Short and obese. Supple and not tender, no meningeal signs CARDIOVASCULAR: Regular rate and rhythm. No murmurs, rubs or gallops heard RESPIRATORY: Clear to auscultation. Breath sounds equal bilaterally. No rales , wheezing or rhonchi ABDOMEN: Soft, non-tender, nondistended. Bowel sounds present and normoactive. No guarding. No rebound. No organomegaly. EXTREMITIES: No clubbing, cyanosis. Has very large BLE, and RLE is larger compared to the LLE, and there is erythema from R foot up to R thigh, with lymphangitis. Dry dressing over wound R knee. Dressing to R leg wounds. Some improvement in edema R foot. Tender whole R leg to palpation. Has brownish pigmentation to his R leg NEUROLOGICAL: Grossly non-focal. PSYCHIATRIC: Normal affect, calm and cooperative. LINE: No evidence of infection Assessment and Plan - Plan Impression Group A Strep Sepsis on presentation Cellulitis RLE IMpetigo lesions on his LUE Morbid obesity Hx sleep apnea Allergy to PCN (severe) and Bactrim (rash) Recommendation Continue Vanco Stop Azactam Short course of Clindamycin Follow C/S and adjust Abx Follow temps Monitor progress Wound care
[2018-07-11] MEDS: Aztreonam Inj 2 GM in Sodium Chloride 0.9% Inj 100 ML IV.SIG SCH ×3 (02:00→13:00)
[2018-07-11] MEDS: Acetaminophen 325 MG Tablet PO PRN ×3 (03:26→15:53)
[2018-07-11] MEDS: Chlorhexidine Gluconate 2% 1 Pack (2 Cloths) TOPICAL SCH (04:36)
[2018-07-11 05:07] LABS: Baso % (Auto) 0.2 % (0.0-2.0); Eos # (Auto) 0.3 th/mm3 (0.0-0.4); Hematocrit 33.9 % (39.0-51.0); Hemoglobin 11.4 gm/dL (13.0-17.0); Lymph % (Auto) 9.4 % (9.0-44.0); Mean Corpuscular HGB Conc 33.7 % (32.0-36.0); Mean Corpuscular Hemoglobin 30.2 pg (27.0-34.0); Mean Corpuscular Volume 89.7 fL (80.0-100.0); Mean Platelet Volume 7.2 fL (7.0-11.0); Mono # (Auto) 0.8 th/mm3 (0.0-0.9); Mono % (Auto) 7.3 % (0.0-8.0); Neut # (Auto) 8.9 th/mm3 (1.8-7.7); Neut % (Auto) 80.1 % (16.0-70.0); Platelet Count 240 th/mm3 (150-450); Red Blood Count 3.78 mil/mm3 (4.50-5.90); Red Cell Distribution Width 14.6 % (11.6-17.2); White Blood Count 11.1 th/mm3 (4.0-11.0)
[2018-07-11 05:26] LABS: Albumin 2.2 g/dL (3.4-5.0); Anion Gap 8 meq/L (5-15); Aspartate Aminotransferase 51 U/L (15-37); Blood Urea Nitrogen 16 mg/dL (7-18); Chloride 104 meq/L (98-107); Glomerular Filtration Rate 81 mL/min (>89); Glucose,Random 191 mg/dL (74-106); Potassium 4.5 meq/L (3.5-5.1); Sodium 136 meq/L (136-145)
[2018-07-11 05:32] LABS: Alanine Aminotransferase 17 U/L (12-78); Alkaline Phosphatase 85 U/L (45-117); Total Protein 7.3 g/dL (6.4-8.2)
[2018-07-11] MEDS: buPROPion 150 MG 12 HR Tablet PO SCH (08:31)
[2018-07-11] MEDS: Tolterodine Tartrate LA 4 MG Capsule PO SCH (08:31)
[2018-07-11] MEDS: Gabapentin 400 MG Capsule PO SCH ×3 (08:31→18:12)
[2018-07-11] MEDS: Magnesium Oxide 400 MG Tablet PO SCH ×2 (08:32→21:08)
[2018-07-11] MEDS: Carisoprodol 350 MG Tablet PO SCH ×3 (08:32→18:12)
[2018-07-11] MEDS: Nystatin 100,000 UNITS/GM Powder 15 GM Bottle TOPICAL SCH ×4 (08:33→21:11)
[2018-07-11] MEDS: Pantoprazole Sodium 20 MG DR Tablet PO SCH (08:33)
[2018-07-11] MEDS: Insulin NovoLOG Aspart Correctional Sugar Inj SQ SCH ×4 (08:34→21:14)
[2018-07-11] MEDS: Collagenase Oint 30 GM Tube TOPICAL SCH (08:52)
[2018-07-11] MEDS: Heparin - SQ 10,000 UNITS/ML Vial SQ SCH ×2 (12:55→22:31)
[2018-07-11] MEDS: Vancomycin Inj 2,500 MG in Sodium Chlor 0.9% Inj 500 ML IV.SIG SCH ×2 (12:55→22:31)
--- NOTE | 2018-07-11 13:11 | P.PNIM ---
Subjective Interval history: Patient was seen and evaluated this morning at the bedside. Patient is time is awake, alert, and oriented x3 and says that he has no active complaints at this time with no active pain in the lower extremities. Patient denies subjective fever overnight and chills. Afebrile overnight. Physical Exam Vital signs: Last Vital Signs Temp 98.9 F 07/11/18 04:00 Pulse 90 07/11/18 08:03 Resp 20 07/11/18 08:03 BP 106/50 L 07/11/18 04:30 Pulse Ox 94 L 07/11/18 08:04 Intake & Output 07/09/18 07/10/18 07/11/18 07/12/18 06:59 06:59 06:59 06:59 Intake Total 5375.0 / 5375.0 5327 / 5327 5656 / 5656 100 / 100 Output Total 750 / 750 4625 / 4625 2475 / 2475 2400 / 2400 Balance 4625.0 / 4625.0 702 / 702 3181 / 3181 -2300 / -2300 Weight 228 kg 227.3 kg 226.5 kg General: No acute distress, conversational HEENT: EOMI, PERRLA Cardiovascular: S1/S2. Respiratory: Clear to auscultation anteriorly and posteriorly. No intercostal muscle use. Gastroenterology: Soft, nontender, nondistended, no guarding or rebound appreciated. Positive bowel sounds Extremity: 2+ radial pulse. Bilateral lower extremities extremely large. Difficult but palpable dorsalis pedis pulse bilaterally. Chronic skin changes noted in the lower extremity bilaterally Urinary Catheter Management Indwelling Temp Sensing Catheter: Cath placed during this visit: yes, but has since been removed by the nurse Insertion date: 07/08/18 Insertion time: 20:05 Removal date: 07/10/18 Removal time: 09:10 Results Labs CBC & Chem 7: 07/11/18 04:20 07/11/18 04:20 Labs: Microbiology 07/08/18 18:15 Blood - Peripheral Aerobic Blood Culture - Final Staphylococcus coag negative 07/08/18 18:15 Blood - Peripheral Anaerobic Blood Culture - Final Group A beta Strep 07/10/18 05:53 Blood - Peripheral Aerobic Blood Culture - Preliminary No growth in 1 day 07/10/18 05:53 Blood - Peripheral Anaerobic Blood Culture - Preliminary No growth in 1 day 07/08/18 19:00 Blood - Peripheral Aerobic Blood Culture - Preliminary No growth in 3 days 07/08/18 19:00 Blood - Peripheral Anaerobic Blood Culture - Preliminary No growth in 3 days 07/09/18 11:30 Wound - Knee Gram Stain - Final 07/09/18 11:30 Wound - Knee Wound Culture - Final Group A beta Strep 07/08/18 20:50 Abscess - Leg Gram Stain - Final 07/08/18 20:50 Abscess - Leg Wound Culture - Final Group A beta Strep Staphylococcus aureus 07/08/18 20:10 Catheterized Urine Urine Culture - Final No growth in 48 hours Assessment and Plan Plan Patient is a 48-year-old male with multiple medical conditions including diabetes, anxiety, and depression who presents with altered mental status and accelerated high blood pressure admitted for sepsis in the setting of poorly healing bilateral lower extremity diabetic wounds Causing cellulitis Infectious disease: Cellulitis (group A strep culture) Continue to follow blood cultures Currently on vancomycin and Clindamycin per ID Follow-up culture report 07/08 wound specimen: MRSA 07/08 blood culture: No growth to date Wound care: Diabetic foot ulcer - Consult placed for podiatry - Wound care dressing change per protocol - santyl - pain control: tramadol, gabapentin Continue Unna boot - VASCULAR evaluation for suspected PAD. Neurology: Acute metabolic encephalopathy - currently resolved Pulmonary: Obstructive sleep apnea - Continue with BiPAP at night - irma Endocrinology: Diabetes type 2 Hold all oral hypoglycemic medications - continue with insulin sliding scale with fingerstick blood glucose monitoring Patient care: Morbid obesity - Counselled on total lifestyle change modification - PT eval DVT prophylaxis: Heparin subcu Diet: Diabetic Disposition: Medical surgery unit Progress Note: Quality VTE Deep Vein Thrombosis/Pulmonary Embolism Present on Admission: No
--- NOTE | 2018-07-11 16:38 | P.PNID ---
Subjective Remarks: Patient is a morbidly obese 48-year-old male, presented to the hospital after he was found with altered mental status. 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 He was just staring and nonverbal. He was also hypotensive. He was brought into the emergency room, and was given fluid resuscitation with improvement in his blood pressure. He also had a temperature of 103.1. Patient stated that he was not feeling good that day. Patient has multiple sores, he has some in his left upper extremity, and he states that he scratches a lot. However the wounds on the leg on the right he could not really determine how he developed them. He is currently complaining of pain in the right lower extremity. He has had problem with pain due to his sciatica but this is worse. Patient's mental status is markedly improved since his been in the hospital. He has a dry cough. Denies any chest pain. He has sleep apnea and used to be on a BiPAP machine but apparently he has not been using them. There is been no nausea or vomiting. No diarrhea. No urinary complaints. CT of the chest did not show any acute infiltrate. CT of the head is negative. Ultrasound did not show any DVT in the lower extremity. This morning 1 of the blood culture is now reported as growing gram-positive cocci in pairs and chains. Infectious disease consultation has been requested to assist with evaluation and treatment. Notes reviewed Temps low grade BP ok Pain RLE C/O itchy rash trunk started this morning BC with GAS Wound R knee - GAS Wound R leg - GAS and Staph aureus WBC lower Antibiotics: Vancomycin Clindamycin Azactam Past Medical History: Sleep apnea Asthma GERD (gastroesophageal reflux disease) Hypertension Morbid obesity Neuropathy Overactive bladder Type 2 diabetes mellitus Knee surgery Allergies/Adverse Reactions: Allergies peas Allergy (Severe, Verified 07/08/18 18:07) Anaphylaxis penicillin G Allergy (Severe, Verified 07/08/18 18:07) Anaphylaxis Sulfa (Sulfonamide Antibiotics) Allergy (Severe, Verified 07/08/18 18:07) Anaphylaxis *MDRO Multi-Drug Resistant Organism Adverse Reaction (Unknown, Uncoded 07/08/18 18:07) unknown MRSA PCR Screen negative 02/09/15 and 02/13/15. Cleared per Infection Control. Objective Vital Signs 07/10/18 17:00 07/10/18 17:30 07/10/18 18:00 Temperature Pulse Rate 92 H 92 H 94 H Respiratory Rate 21 22 24 Blood Pressure 115/55 L 129/69 Pulse Oximetry 95 94 L 94 L 07/10/18 18:01 07/10/18 18:30 07/10/18 19:00 Temperature Pulse Rate 98 H 95 H 93 H Respiratory Rate 27 H 30 H 18 Blood Pressure 147/67 H 146/59 H 144/72 H Pulse Oximetry 92 L 96 98 07/10/18 19:30 07/10/18 20:00 07/10/18 20:08 Temperature 99.3 F Pulse Rate 93 H 92 H 90 Respiratory Rate 19 13 18 Blood Pressure 138/71 143/64 H Pulse Oximetry 96 97 98 07/10/18 20:30 07/10/18 21:00 07/10/18 21:30 Temperature Pulse Rate 89 89 88 Respiratory Rate 17 23 15 Blood Pressure 134/59 L 141/66 H 142/66 H Pulse Oximetry 96 96 96 07/10/18 21:42 07/10/18 22:00 07/10/18 22:30 Temperature Pulse Rate 88 89 85 Respiratory Rate 15 24 17 Blood Pressure 150/68 H 127/65 132/64 Pulse Oximetry 97 97 96 07/10/18 23:00 07/10/18 23:30 07/11/18 00:00 Temperature 98.9 F Pulse Rate 86 85 86 Respiratory Rate 17 21 17 Blood Pressure 133/62 131/71 131/67 Pulse Oximetry 97 93 L 96 07/11/18 00:30 07/11/18 01:00 07/11/18 01:13 Temperature Pulse Rate 86 87 87 Respiratory Rate 19 10 L Blood Pressure 126/66 121/64 Pulse Oximetry 96 95 91 L 07/11/18 01:30 07/11/18 02:00 07/11/18 02:30 Temperature Pulse Rate 88 86 85 Respiratory Rate 21 22 21 Blood Pressure 128/74 137/78 132/75 Pulse Oximetry 92 L 92 L 93 L 07/11/18 03:00 07/11/18 03:30 07/11/18 04:00 Temperature 98.9 F Pulse Rate 84 90 87 Respiratory Rate 21 25 H 22 Blood Pressure 113/52 L 142/83 H 137/64 Pulse Oximetry 92 L 92 L 91 L 07/11/18 04:30 07/11/18 04:35 07/11/18 08:00 Temperature 98.9 F Pulse Rate 85 87 Respiratory Rate 28 H 16 23 Blood Pressure 106/50 L 127/72 Pulse Oximetry 93 L 95 07/11/18 08:03 07/11/18 08:04 07/11/18 12:00 Temperature Pulse Rate 90 90 Respiratory Rate 20 Blood Pressure Pulse Oximetry 94 L 07/11/18 12:01 07/11/18 16:00 Temperature 99.4 F 99.3 F Pulse Rate 90 103 H Respiratory Rate 22 32 H Blood Pressure 118/55 L 140/72 Pulse Oximetry 94 L 93 L Intake & Output 07/10/18 07/11/18 07/11/18 18:59 06:59 18:59 Intake Total 3137 / 3137 2519 / 2519 831 / 831 Output Total 875 / 875 1600 / 1600 2400 / 2400 Balance 2262 / 2262 919 / 919 -1569 / -1569 Weight 226.5 kg Intake: IV 1937 / 1937 1699 / 1699 831 / 831 NS Inj 1,000 ML @ 100 mls/hr IV 1000 / 1000 762 / 762 .CONT .Q10H FLEX Rx#:[id number] Azactam Inj 2 GM In NS Inj 100 200 / 200 200 / 200 200 / 200 ML @ 200 mls/hr IV.SIG Q6H FLEX Rx#:[id number] Cleocin Inj 900 MG In NS Inj 212 / 212 212 / 212 106 / 106 100 ML @ 100 mls/hr IV.SIG Q8H FLEX Rx#:[id number] Vancomycin Inj 2,500 MG In NS 525 / 525 525 / 525 525 / 525 Inj 500 ML @ 250 mls/hr IV.SIG Q12H FLEX Rx#:[id number] Oral 1200 / 1200 820 / 820 Output: Urine 650 / 650 1600 / 1600 2400 / 2400 Urine Amount (Catheter) 225 / 225 Indwelling Temp Sensing 225 / 225 Catheter Other: # Voids 4 6 # Incontinent Voids 1 0 07/08/18 18:15 Blood - Peripheral Aerobic Blood Culture - Final Staphylococcus coag negative 07/08/18 18:15 Blood - Peripheral Anaerobic Blood Culture - Final Group A beta Strep 07/10/18 05:53 Blood - Peripheral Aerobic Blood Culture - Preliminary No growth in 1 day 07/10/18 05:53 Blood - Peripheral Anaerobic Blood Culture - Preliminary No growth in 1 day 07/08/18 19:00 Blood - Peripheral Aerobic Blood Culture - Preliminary No growth in 3 days 07/08/18 19:00 Blood - Peripheral Anaerobic Blood Culture - Preliminary No growth in 3 days 07/09/18 11:30 Wound - Knee Gram Stain - Final 07/09/18 11:30 Wound - Knee Wound Culture - Final Group A beta Strep 07/08/18 20:50 Abscess - Leg Gram Stain - Final 07/08/18 20:50 Abscess - Leg Wound Culture - Final Group A beta Strep Staphylococcus aureus 07/08/18 20:10 Catheterized Urine Urine Culture - Final No growth in 48 hours 07/08/18 19:00 Nasal Wash Influenza Types A,B Antigen - Final Negative for FLU A and B antigen Infection due to influenza A or B cannot be ruled out since the antigen present in the sample may be below the detection limit of the test. Lab - Hematology Results 07/10/18 07/11/18 05:53 04:20 WBC 14.3 H 11.1 H RBC 3.93 L 3.78 L Hgb 11.9 L 11.4 L Hct 36.1 L 33.9 L MCV 91.9 89.7 MCH 30.4 30.2 MCHC 33.1 33.7 RDW 14.5 14.6 Plt Count 233 240 MPV 7.5 7.2 Neut % (Auto) 83.1 H 80.1 H Lymph % (Auto) 8.1 L 9.4 [place] % (Auto) 6.0 7.3 Eos % (Auto) 2.4 3.0 Baso % (Auto) 0.4 0.2 Neut # (Auto) 11.9 H 8.9 H Lymph # (Auto) 1.2 1.0 [place] # (Auto) 0.9 0.8 Eos # (Auto) 0.3 0.3 Baso # (Auto) 0.1 0.0 WBC Differential . . Differential Comment Auto diff final Auto diff final Lab - Chemistry Results 07/09/18 07/09/18 07/10/18 16:52 19:34 05:53 Sodium 136 Potassium 4.3 Chloride 106 Carbon Dioxide 24.7 Anion Gap 5 BUN 20 H Creatinine 1.06 Estimated GFR 74 L POC Glucose 273 H 262 H Random Glucose 191 H Calcium 7.6 L Magnesium 1.7 Total Bilirubin AST ALT Alkaline Phosphatase Total Protein Albumin 07/10/18 07/10/18 07/10/18 07:33 11:45 17:05 Sodium Potassium Chloride Carbon Dioxide Anion Gap BUN Creatinine Estimated GFR POC Glucose 181 H 242 H 280 H Random Glucose Calcium Magnesium Total Bilirubin AST ALT Alkaline Phosphatase Total Protein Albumin 07/10/18 07/11/18 07/11/18 21:48 04:20 08:29 Sodium 136 Potassium 4.5 Chloride 104 Carbon Dioxide 24.0 Anion Gap 8 BUN 16 Creatinine 0.98 Estimated GFR 81 L POC Glucose 257 H 152 H Random Glucose 191 H Calcium 8.0 L Magnesium Total Bilirubin 0.3 AST 51 H ALT 17 Alkaline Phosphatase 85 Total Protein 7.3 Albumin 2.2 L 07/11/18 11:15 Sodium Potassium Chloride Carbon Dioxide Anion Gap BUN Creatinine Estimated GFR POC Glucose 177 H Random Glucose Calcium Magnesium Total Bilirubin AST ALT Alkaline Phosphatase Total Protein Albumin Imaging: ITS Impressions Chest X-Ray 07/08/18 18:07 CONCLUSION: Suboptimal examination with hazy opacity in the left perihilar region and left lung base which could represent infiltrate or posterior layering effusion. Head CT 07/08/18 18:09 CONCLUSION: 1. Negative noncontrast head CT. . Chest CT 07/08/18 19:48 CONCLUSION: 1. No pneumonia or other acute cardiopulmonary disease demonstrated. 2. Enlarged, fatty liver. 3. Small hiatal hernia. Venous Doppler Study 07/09/18 00:00 CONCLUSION: 1. Suboptimal examination with decreased visualization. 2. No evidence of deep venous thrombosis. 3. Bilateral soft tissue edema right greater than left. Physical Exam: GENERAL: awake and alert, NAD SKIN: Cool and dry. Has pinpoint red papular rash in trunk/chest HEAD: Atraumatic. Normocephalic. No temporal wasting, or tenderness. EYES: [place] conjunctiva. No petechia or hemorrhage. Pupils equal, round and reactive to light. Extraocular movements full and intact. No scleral icterus. No injection or drainage. EARS, NOSE AND THROAT: Nose without bleeding or purulent nasal discharge. No sinus tenderness. Mucous membranes pink and moist. No oral lesions noted. No exudate. No oral thrush. NECK: Trachea midline. Short and obese. Supple and not tender, no meningeal signs CARDIOVASCULAR: Regular rate and rhythm. No murmurs, rubs or gallops heard RESPIRATORY: Clear to auscultation. Breath sounds equal bilaterally. No rales , wheezing or rhonchi ABDOMEN: Soft, non-tender, nondistended. Bowel sounds present and normoactive. No guarding. No rebound. No organomegaly. EXTREMITIES: No clubbing, cyanosis. Has very large BLE, and RLE is larger compared to the LLE, and there is improving erythema and edema in RLE. Has brownish pigmentation to his R leg NEUROLOGICAL: Grossly non-focal. PSYCHIATRIC: Normal affect, calm and cooperative. LINE: No evidence of infection Assessment and Plan - Plan Impression Group A Strep Sepsis on presentation Cellulitis RLE IMpetigo lesions on his LUE Morbid obesity Hx sleep apnea Allergy to PCN (severe) and Bactrim (rash) Rash, ?from Abx Recommendation Continue Vanco Stop Azactam Continue Clindamycin for now benadryl Monitor rash Follow temps Monitor progress Wound care
--- NOTE | 2018-07-11 16:56 | P.CONVS ---
History of Present Illness Service: Vascular surgery Consult date: 07/11/18 Primary Care Provider: Yrn Zamora MD Chief Complaint: Nonhealing bilateral lower extremity wounds History of Present Illness: 48-year-old male with a past medical history of bilateral lower extremity chronic venous insufficiency, lymphedema. He presents to the emergency room with altered mental status and was admitted for sepsis workup. Vascular surgery was consulted to evaluate and treat for possible peripheral vascular disease and chronic venous insufficiency. Patient complain of drainage from the bilateral lower extremity wounds. He has been treated previously with antibiotics, compression and he has a lymphedema pump at home. He denies any chest pain or shortness of breath. Review of Systems All other systems reviewed negative except as stated in HPI PMFSH - History History Provided By: Patient - Medical History Medical History: Medical History (Last Updated 07/09/18 @ 11:39 by Precious Lewis MD) Sleep apnea Asthma GERD (gastroesophageal reflux disease) Hypertension Morbid obesity Neuropathy Overactive bladder Type 2 diabetes mellitus - Surgical History Surgical History: Surgical History (Last Reviewed 07/09/18 @ 11:39 by Precious Lewis MD) H/O knee surgery - Family History Family History: Family History (Last Reviewed 07/09/18 @ 11:39 by Precious Lewis MD) Other Family history unobtainable Family history unobtainable due to patient's condition - Tobacco History Second Hand Smoke Exposure: No Tobacco Use In Past 30 Days: Yes Smoking Status: Former smoker Tobacco Type: Cigarettes - Alcohol History How Often Do You Have a Drink Containing Alcohol: Never - Substance Use History Substance History: No History of Abuse - Travel History Recent Travel in the [place] Within the Last 8 Weeks: No Recent Travel Out of the Country Within the Last 8 Weeks: No - Immunization History Tetanus Immunization: <5 Years Hx Influenza Vaccine This Season: Yes Medications and Allergies Active Medications: Active Medications Acetaminophen (Tylenol) 650 mg PO Q4H PRN PRN Reason: Temp > 100.4 Last Admin: 07/11/18 15:53 Dose: 650 mg Al Hydroxide/Mg Hydroxide (Milk Of Magnkassandra Liq) 30 ml PO Q12H PRN PRN Reason: Mild Constipation Albuterol (Duoneb Neb (Prn)) 1 ampul NEB Q2HR NEB PRN PRN Reason: SHORTNESS OF BREATH Albuterol (Duoneb Neb (Francisco)) 1 ampul NEB Q6HR WHILE AWAKE NEB [facility] Last Admin: 07/11/18 14:49 Dose: Not Given Alprazolam (Xanax) 0.5 mg PO BID PRN PRN Reason: Anxiety Last Admin: 07/10/18 02:48 Dose: 0.5 mg Bisacodyl (Dulcolax Supp) 10 mg RECTAL DAILY PRN PRN Reason: SEVERE CONSITIPATION Bupropion HCl (Wellbutrin Sr) 150 mg PO DAILY [facility] Last Admin: 07/11/18 08:31 Dose: 150 mg Carisoprodol (Soma) 350 mg PO TID [facility] Last Admin: 07/11/18 12:58 Dose: 350 mg Chlorhexidine Gluconate (Chlorhexidine 2% Cloth) 3 pack TOPICAL DAILY@0400 [facility] Stop: 07/14/18 03:59 Last Admin: 07/11/18 04:36 Dose: 3 pack Chlorhexidine Gluconate (Chlorhexidine 2% Cloth) 3 pack TOPICAL DAILY@0400 PRN PRN Reason: Extra cloth needed Stop: 07/14/18 03:59 Collagenase (Santyl Oint) 1 applicatio TOPICAL DAILY [facility] Last Admin: 07/11/18 08:52 Dose: 1 applicatio Dextrose (D50w Vial) 50 ml IV.PUSH UNSCH PRN PRN Reason: PER HYPOGLYCEMIA PROTOCOL Diphenhydramine HCl (Benadryl) 50 mg PO Q6H PRN PRN Reason: ITCHING Gabapentin (Neurontin) 1,200 mg PO TID [facility] Last Admin: 07/11/18 12:57 Dose: 1,200 mg Glucagon (Glucagon Inj) 1 mg OTHER PRN PRN PRN Reason: for Hypoglycemia Protocol Heparin Sodium (Porcine) (Heparin Inj) 5,000 units SQ Q12H [facility] Last Admin: 07/11/18 12:55 Dose: 5,000 units Clindamycin Phosphate 900 mg/ (Sodium Chloride) 106 mls @ 100 mls/hr IV.SIG Q8H [facility] Last Infusion: 07/11/18 15:11 Dose: Infused Vancomycin HCl 2,500 mg/ (Sodium Chloride) 525 mls @ 250 mls/hr IV.SIG Q12H [facility] Last Infusion: 07/11/18 15:11 Dose: Infused Insulin Aspart (Novolog Insulin Correctional Sugar Inj) 0 unit SQ ACHS [facility]; Protocol Last Admin: 07/11/18 12:56 Dose: 2 unit Lactulose (Lactulose Liq) 30 ml PO DAILY PRN PRN Reason: SEVERE CONSITIPATION Magnesium Oxide (Mag-Ox) 400 mg PO BID [facility] Last Admin: 07/11/18 08:32 Dose: 400 mg Miscellaneous Information ([facility] [place]dered Lab Info) 0 each OTHER ONCE ONE Stop: 07/11/18 21:46 Nystatin (Mycostatin Powder) 1 applicatio TOPICAL QID [facility] Last Admin: 07/11/18 12:57 Dose: 1 applicatio Ondansetron HCl (Zofran Inj) 4 mg IV.PUSH Q6H PRN PRN Reason: NAUSEA OR VOMITING Pantoprazole Sodium (Protonix) 20 mg PO DAILY [facility] Last Admin: 07/11/18 08:33 Dose: 20 mg Pharmacy Profile Note (Vancomycin Consult Pharmacy) 1 each OTHER UNSCH PRN PRN Reason: Pharmacy to dose Sennosides (Senokot) 17.2 mg PO Q12H PRN PRN Reason: Moderate Constipation Sodium Chloride (Ns Flush) 2 ml IV.FLUSH BID [facility] Last Admin: 07/11/18 08:33 Dose: 2 ml Sodium Chloride (Ns Flush) 2 ml IV.FLUSH PRN PRN PRN Reason: FLUSH AFTER USING IV ACCESS Tolterodine Tartrate (Detrol La) 4 mg PO DAILY [facility] Last Admin: 07/11/18 08:31 Dose: 4 mg Tramadol HCl (Ultram) 50 mg PO Q8H PRN PRN Reason: PAIN SCALE 1 TO 10 Last Admin: 07/10/18 10:42 Dose: 50 mg Allergies Allergy/AdvReac Type Severity Reaction Status Date / Time peas Allergy Severe Anaphylaxis Verified 07/08/18 18:07 penicillin G Allergy Severe Anaphylaxis Verified 07/08/18 18:07 Sulfa (Sulfonamide Allergy Severe Anaphylaxis Verified 07/08/18 18:07 Antibiotics) *MDRO Multi-Drug Resistant AdvReac Unknown unknown Uncoded 07/08/18 18:07 Organism Home Medications Medication Instructions Recorded Confirmed Type albuterol sulfate [ProAir HFA] 2 puff INHALATION Q4H PRN 07/08/18 07/08/18 History alprazolam [Xanax] 0.5 mg PO BID PRN 07/08/18 07/08/18 History ascorbic acid (vitamin C) [Vitamin 1,000 mg PO DAILY 07/08/18 07/08/18 History C] bupropion HCl [Wellbutrin XL] 150 mg PO DAILY 07/08/18 07/08/18 History carisoprodol [Soma] 350 mg PO TID 07/08/18 07/08/18 History exenatide microspheres [Bydureon 2 mg SUBCUT Q7D 07/08/18 07/08/18 History BCise] gabapentin 1,200 mg PO BID 07/08/18 07/08/18 History gabapentin 600 mg PO DAILY 07/08/18 07/08/18 History ibuprofen 800 mg PO DAILY 07/08/18 07/08/18 History metformin 1,000 mg PO BID 07/08/18 07/08/18 History mirabegron [Myrbetriq] 50 mg PO DAILY 07/08/18 07/08/18 History multivit with [id number] [One 1 tab PO DAILY 07/08/18 07/08/18 History Daily For Men] omeprazole 20 mg PO DAILY 07/08/18 07/08/18 History potassium chloride 20 meq PO BID 07/08/18 07/08/18 History tramadol 50 mg PO Q8HR PRN 07/08/18 07/08/18 History Physical Exam Vital Signs / I&O: Vital Signs 07/10/18 17:00 07/10/18 17:30 07/10/18 18:00 Temperature Pulse Rate 92 H 92 H 94 H Respiratory Rate 21 22 24 Blood Pressure 115/55 L 129/69 Pulse Oximetry 95 94 L 94 L 07/10/18 18:01 07/10/18 18:30 07/10/18 19:00 Temperature Pulse Rate 98 H 95 H 93 H Respiratory Rate 27 H 30 H 18 Blood Pressure 147/67 H 146/59 H 144/72 H Pulse Oximetry 92 L 96 98 07/10/18 19:30 07/10/18 20:00 07/10/18 20:08 Temperature 99.3 F Pulse Rate 93 H 92 H 90 Respiratory Rate 19 13 18 Blood Pressure 138/71 143/64 H Pulse Oximetry 96 97 98 07/10/18 20:30 07/10/18 21:00 07/10/18 21:30 Temperature Pulse Rate 89 89 88 Respiratory Rate 17 23 15 Blood Pressure 134/59 L 141/66 H 142/66 H Pulse Oximetry 96 96 96 07/10/18 21:42 07/10/18 22:00 07/10/18 22:30 Temperature Pulse Rate 88 89 85 Respiratory Rate 15 24 17 Blood Pressure 150/68 H 127/65 132/64 Pulse Oximetry 97 97 96 07/10/18 23:00 07/10/18 23:30 07/11/18 00:00 Temperature 98.9 F Pulse Rate 86 85 86 Respiratory Rate 17 21 17 Blood Pressure 133/62 131/71 131/67 Pulse Oximetry 97 93 L 96 07/11/18 00:30 07/11/18 01:00 07/11/18 01:13 Temperature Pulse Rate 86 87 87 Respiratory Rate 19 10 L Blood Pressure 126/66 121/64 Pulse Oximetry 96 95 91 L 07/11/18 01:30 07/11/18 02:00 07/11/18 02:30 Temperature Pulse Rate 88 86 85 Respiratory Rate 21 22 21 Blood Pressure 128/74 137/78 132/75 Pulse Oximetry 92 L 92 L 93 L 07/11/18 03:00 07/11/18 03:30 07/11/18 04:00 Temperature 98.9 F Pulse Rate 84 90 87 Respiratory Rate 21 25 H 22 Blood Pressure 113/52 L 142/83 H 137/64 Pulse Oximetry 92 L 92 L 91 L 07/11/18 04:30 07/11/18 04:35 07/11/18 08:00 Temperature 98.9 F Pulse Rate 85 87 Respiratory Rate 28 H 16 23 Blood Pressure 106/50 L 127/72 Pulse Oximetry 93 L 95 07/11/18 08:03 07/11/18 08:04 07/11/18 12:00 Temperature Pulse Rate 90 90 Respiratory Rate 20 Blood Pressure Pulse Oximetry 94 L 07/11/18 12:01 07/11/18 16:00 Temperature 99.4 F 99.3 F Pulse Rate 90 103 H Respiratory Rate 22 32 H Blood Pressure 118/55 L 140/72 Pulse Oximetry 94 L 93 L Intake & Output 07/10/18 07/11/18 07/11/18 18:59 06:59 18:59 Intake Total 3137 / 3137 2519 / 2519 831 / 831 Output Total 875 / 875 1600 / 1600 2400 / 2400 Balance 2262 / 2262 919 / 919 -1569 / -1569 Weight 226.5 kg Intake: IV 1937 / 1937 1699 / 1699 831 / 831 NS Inj 1,000 ML @ 100 mls/hr IV 1000 / 1000 762 / 762 .CONT .Q10H [facility] Rx#:[id number] Azactam Inj 2 GM In NS Inj 100 200 / 200 200 / 200 200 / 200 ML @ 200 mls/hr IV.SIG Q6H [facility] Rx#:[id number] Cleocin Inj 900 MG In NS Inj 212 / 212 212 / 212 106 / 106 100 ML @ 100 mls/hr IV.SIG Q8H [facility] Rx#:[id number] Vancomycin Inj 2,500 MG In NS 525 / 525 525 / 525 525 / 525 Inj 500 ML @ 250 mls/hr IV.SIG Q12H [facility] Rx#:[id number] Oral 1200 / 1200 820 / 820 Output: Urine 650 / 650 1600 / 1600 2400 / 2400 Urine Amount (Catheter) 225 / 225 Indwelling Temp Sensing 225 / 225 Catheter Other: # Voids 4 6 # Incontinent Voids 1 0 Neuro: Alert awake oriented x3 HEENT: Normocephalic atraumatic Neck: Supple Heart: S1-S2 Lungs: Clear to auscultation bilateral Abdomen: Soft nontender nondistended Vascular: Bilateral lower extremity with nonhealing wounds worse on the right than the left. These wounds involved the anterior aspect of the legs. There are no wounds involving the feet. +2 palpable dorsalis pedis pulses bilaterally. Laboratory Results - last 24 hr 07/10/18 07/10/18 07/11/18 17:05 21:48 04:20 WBC 11.1 H RBC 3.78 L Hgb 11.4 L Hct 33.9 L MCV 89.7 MCH 30.2 MCHC 33.7 RDW 14.6 Plt Count 240 MPV 7.2 Neut % (Auto) 80.1 H Lymph % (Auto) 9.4 Newberry % (Auto) 7.3 Eos % (Auto) 3.0 Baso % (Auto) 0.2 Neut # (Auto) 8.9 H Lymph # (Auto) 1.0 Newberry # (Auto) 0.8 Eos # (Auto) 0.3 Baso # (Auto) 0.0 WBC Differential . Differential Comment Auto diff final Sodium Potassium Chloride Carbon Dioxide Anion Gap BUN Creatinine Estimated GFR POC Glucose 280 H 257 H Random Glucose Calcium Total Bilirubin AST ALT Alkaline Phosphatase Total Protein Albumin 07/11/18 07/11/18 07/11/18 04:20 08:29 11:15 WBC RBC Hgb Hct MCV MCH MCHC RDW Plt Count MPV Neut % (Auto) Lymph % (Auto) Newberry % (Auto) Eos % (Auto) Baso % (Auto) Neut # (Auto) Lymph # (Auto) [place]berry # (Auto) Eos # (Auto) Baso # (Auto) WBC Differential Differential Comment Sodium 136 Potassium 4.5 Chloride 104 Carbon Dioxide 24.0 Anion Gap 8 BUN 16 Creatinine 0.98 Estimated GFR 81 L POC Glucose 152 H 177 H Random Glucose 191 H Calcium 8.0 L Total Bilirubin 0.3 AST 51 H ALT 17 Alkaline Phosphatase 85 Total Protein 7.3 Albumin 2.2 L Microbiology 07/08/18 18:15 Aerobic Blood Culture - Final Blood - Peripheral Staphylococcus coag negative Anaerobic Blood Culture - Final Group A beta Strep 07/10/18 05:53 Aerobic Blood Culture - Preliminary Blood - Peripheral No growth in 1 day Anaerobic Blood Culture - Preliminary No growth in 1 day 07/08/18 19:00 Aerobic Blood Culture - Preliminary Blood - Peripheral No growth in 3 days Anaerobic Blood Culture - Preliminary No growth in 3 days 07/09/18 11:30 Gram Stain - Final Wound - Knee Wound Culture - Final Group A beta Strep 07/08/18 20:50 Gram Stain - Final Abscess - Leg Wound Culture - Final Group A beta Strep Staphylococcus aureus Assessment and Plan - Assessment (1) Chronic venous insufficiency Code(s): I87.2 - Venous insufficiency (chronic) (peripheral) Status: Acute (2) Chronic acquired lymphedema Code(s): I89.0 - Lymphedema, not elsewhere classified Status: Acute - Plan The patient clinical presentation is consistent with nonhealing wound due to chronic venous insufficiency and lymphedema. I was able to palpate a +2 dorsalis pedis pulse bilaterally which rule out any significant peripheral vascular disease that could contribute to poor wound healing. I recommend to treat the patient with antibiotics, Unna boot therapy. The patient will need a duplex ultrasound to evaluate for venous reflux disease as an outpatient. I will continue to follow the patient during his hospital stay. Thank you for allowing us to participate in this patient care. If you have any questions do not hesitate to call my cell phone John Abreu MD [facility] [phone]
[2018-07-11] MEDS ORDERED: Pharmacy Ordered Lab Info OTHER ONE (21:45)
[2018-07-12] MEDS: Chlorhexidine Gluconate 2% 1 Pack (2 Cloths) TOPICAL SCH (03:28)
[2018-07-12 04:42] LABS: Hematocrit 36.6 % (39.0-51.0); Hemoglobin 12.2 gm/dL (13.0-17.0); Mean Corpuscular HGB Conc 33.4 % (32.0-36.0); Mean Corpuscular Hemoglobin 30.4 pg (27.0-34.0); Mean Corpuscular Volume 90.9 fL (80.0-100.0); Mean Platelet Volume 7.2 fL (7.0-11.0); Platelet Count 256 th/mm3 (150-450); Red Blood Count 4.02 mil/mm3 (4.50-5.90); Red Cell Distribution Width 14.4 % (11.6-17.2); White Blood Count 9.7 th/mm3 (4.0-11.0)
[2018-07-12 05:08] LABS: Anion Gap 6 meq/L (5-15); Blood Urea Nitrogen 12 mg/dL (7-18); Calcium 8.3 mg/dL (8.5-10.1); Carbon Dioxide 27.6 meq/L (21.0-32.0); Chloride 103 meq/L (98-107); Glomerular Filtration Rate Greater Than 89 mL/min (>89); Glucose,Random 154 mg/dL (74-106); Magnesium 1.4 mg/dL (1.5-2.5); Potassium 4.1 meq/L (3.5-5.1); Sodium 137 meq/L (136-145)
--- NOTE | 2018-07-12 08:00 | P.PNIM ---
Subjective Interval history: Patient seen and examined at [facility] bedside No subjective fever but felt chills + emesis overnight ( non bloody) + itching on back w/ rash Mg 1.4 ( supplement) Physical Exam Vital signs: Last Vital Signs Temp 98.4 F 07/12/18 04:00 Pulse 73 07/12/18 04:00 Resp 20 07/12/18 04:00 BP 108/60 07/12/18 04:00 Pulse Ox 95 07/12/18 04:00 Intake & Output 07/10/18 07/11/18 07/12/18 07/13/18 06:59 06:59 06:59 06:59 Intake Total 5327 / 5327 5656 / 5656 2688 / 2688 Output Total 4625 / 4625 2475 / 2475 4250 / 4250 Balance 702 / 702 3181 / 3181 -1562 / -1562 Weight 227.3 kg 226.5 kg 224 kg General: NAD Skin: fungal rash heent: eomi, perrla cvs: s1/s2. rrr resp: CTA bilaterally GI: soft, non tender, non dsitended, no guarding or rebound ext: LE wound w/ dressing intact. No pus noted. Urinary Catheter Management Indwelling Temp Sensing Catheter: Cath placed during this visit: yes, but has since been removed by the nurse Insertion date: 07/08/18 Insertion time: 20:05 Removal date: 07/10/18 Removal time: 09:10 Results Labs CBC & Chem 7: 07/12/18 03:26 07/12/18 03:26 Labs: Microbiology 07/08/18 18:15 Blood - Peripheral Aerobic Blood Culture - Final Staphylococcus coag negative 07/08/18 18:15 Blood - Peripheral Anaerobic Blood Culture - Final Group A beta Strep 07/10/18 05:53 Blood - Peripheral Aerobic Blood Culture - Preliminary No growth in 1 day 07/10/18 05:53 Blood - Peripheral Anaerobic Blood Culture - Preliminary No growth in 1 day 07/08/18 19:00 Blood - Peripheral Aerobic Blood Culture - Preliminary No growth in 3 days 07/08/18 19:00 Blood - Peripheral Anaerobic Blood Culture - Preliminary No growth in 3 days 07/09/18 11:30 Wound - Knee Gram Stain - Final 07/09/18 11:30 Wound - Knee Wound Culture - Final Group A beta Strep 07/08/18 20:50 Abscess - Leg Gram Stain - Final 07/08/18 20:50 Abscess - Leg Wound Culture - Final Group A beta Strep Staphylococcus aureus Assessment and Plan (1) Chronic venous insufficiency: Code(s): I87.2 - Venous insufficiency (chronic) (peripheral) Status: Acute (2) Chronic acquired lymphedema: Code(s): I89.0 - Lymphedema, not elsewhere classified Status: Acute Plan Patient is a 48-year-old male with multiple medical conditions including diabetes, anxiety, and depression who presents with altered mental status and accelerated high blood pressure admitted for sepsis in the setting of poorly healing bilateral lower extremity diabetic wounds Causing cellulitis Nephrology: Hypomagnesemia - supplement 2g IV mag Infectious disease: Cellulitis (group A strep culture) Continue to follow blood cultures Currently on Clindamycin per ID Follow-up culture report 07/08 wound specimen: MRSA 07/08 blood culture: No growth to date Wound care: Diabetic foot ulcer - Consult placed for podiatry - Wound care dressing change per protocol - santyl - pain control: tramadol, gabapentin Continue Unna boot - VASCULAR evaluation appreciated. Outpt f/u Neurology: Acute metabolic encephalopathy - currently resolved Pulmonary: Obstructive sleep apnea - Continue with BiPAP at night - duoneb Endocrinology: Diabetes type 2 Hold all oral hypoglycemic medications - continue with insulin sliding scale with fingerstick blood glucose monitoring - outpatient podiatry and ophthalmology on discharge Patient care: Morbid obesity - Counselled on total lifestyle change modification - PT eval Unna boot ordered DVT prophylaxis: Heparin subcu Diet: Diabetic Disposition: Medical surgery unit Progress Note: Quality VTE Deep Vein Thrombosis/Pulmonary Embolism Present on Admission: No
[2018-07-12] MEDS: Collagenase Oint 30 GM Tube TOPICAL SCH (09:58)
[2018-07-12] MEDS: Nystatin 100,000 UNITS/GM Powder 15 GM Bottle TOPICAL SCH ×4 (09:58→21:42)
[2018-07-12] MEDS: Insulin NovoLOG Aspart Correctional Sugar Inj SQ SCH ×4 (09:59→21:39)
[2018-07-12] MEDS: Mag Sulf 1 gm/100 ml Premix 100 ML IV.SIG SCH ×2 (09:59→11:21)
[2018-07-12] MEDS: Magnesium Oxide 400 MG Tablet PO SCH ×2 (10:00→21:35)
[2018-07-12] MEDS: buPROPion 150 MG 12 HR Tablet PO SCH (10:00)
[2018-07-12] MEDS: Pantoprazole Sodium 20 MG DR Tablet PO SCH (10:00)
[2018-07-12] MEDS: Tolterodine Tartrate LA 4 MG Capsule PO SCH (10:00)
[2018-07-12] MEDS: Gabapentin 400 MG Capsule PO SCH ×3 (10:00→18:34)
[2018-07-12] MEDS: Carisoprodol 350 MG Tablet PO SCH ×3 (10:00→18:34)
[2018-07-12] MEDS: Heparin - SQ 10,000 UNITS/ML Vial SQ SCH ×2 (10:02→22:18)
[2018-07-12] MEDS: Vancomycin Inj 2,500 MG in Sodium Chlor 0.9% Inj 500 ML IV.SIG SCH (10:02)
--- NOTE | 2018-07-12 10:22 | P.PNID ---
Subjective Remarks: Patient is a morbidly obese 48-year-old male, presented to the hospital after he was found with altered mental status. 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 He was just staring and nonverbal. He was also hypotensive. He was brought into the emergency room, and was given fluid resuscitation with improvement in his blood pressure. He also had a temperature of 103.1. Patient stated that he was not feeling good that day. Patient has multiple sores, he has some in his left upper extremity, and he states that he scratches a lot. However the wounds on the leg on the right he could not really determine how he developed them. He is currently complaining of pain in the right lower extremity. He has had problem with pain due to his sciatica but this is worse. Patient's mental status is markedly improved since his been in the hospital. He has a dry cough. Denies any chest pain. He has sleep apnea and used to be on a BiPAP machine but apparently he has not been using them. There is been no nausea or vomiting. No diarrhea. No urinary complaints. CT of the chest did not show any acute infiltrate. CT of the head is negative. Ultrasound did not show any DVT in the lower extremity. This morning 1 of the blood culture is now reported as growing gram-positive cocci in pairs and chains. Infectious disease consultation has been requested to assist with evaluation and treatment. Notes reviewed Temps ok Rash worse especially in his back BP ok Pain RLE stable BC with GAS Wound R knee - GAS Wound R leg - GAS and Staph aureus WBC lower Benadryl not working Antibiotics: Vancomycin Clindamycin Azactam Past Medical History: Sleep apnea Asthma GERD (gastroesophageal reflux disease) Hypertension Morbid obesity Neuropathy Overactive bladder Type 2 diabetes mellitus Knee surgery Allergies/Adverse Reactions: Allergies peas Allergy (Severe, Verified 07/08/18 18:07) Anaphylaxis penicillin G Allergy (Severe, Verified 07/08/18 18:07) Anaphylaxis Sulfa (Sulfonamide Antibiotics) Allergy (Severe, Verified 07/08/18 18:07) Anaphylaxis *MDRO Multi-Drug Resistant Organism Adverse Reaction (Unknown, Uncoded 07/08/18 18:07) unknown MRSA PCR Screen negative 02/09/15 and 02/13/15. Cleared per Infection Control. Objective Vital Signs 07/11/18 12:00 07/11/18 12:01 07/11/18 16:00 Temperature 99.4 F 99.3 F Pulse Rate 90 90 103 H Respiratory Rate 22 32 H Blood Pressure 118/55 L 140/72 Pulse Oximetry 94 L 93 L 07/11/18 20:00 07/12/18 00:00 07/12/18 04:00 Temperature 98.4 F 98.2 F 98.4 F Pulse Rate 99 H 77 73 Respiratory Rate 20 18 20 Blood Pressure 124/56 L 110/59 L 108/60 Pulse Oximetry 94 L 94 L 95 07/12/18 08:03 Temperature Pulse Rate Respiratory Rate Blood Pressure Pulse Oximetry 95 Intake & Output 07/11/18 07/12/18 07/12/18 18:59 06:59 18:59 Intake Total 1551 / 1551 1137 / 1137 Output Total 3050 / 3050 1200 / 1200 Balance -1499 / -1499 -63 / -63 Weight 224 kg Intake: IV 831 / 831 737 / 737 Azactam Inj 2 GM In NS Inj 100 200 / 200 ML @ 200 mls/hr IV.SIG Q6H FLEX Rx#:[id number] Cleocin Inj 900 MG In NS Inj 106 / 106 212 / 212 100 ML @ 100 mls/hr IV.SIG Q8H FLEX Rx#:[id number] Vancomycin Inj 2,500 MG In NS 525 / 525 525 / 525 Inj 500 ML @ 250 mls/hr IV.SIG Q12H FLEX Rx#:[id number] Oral 720 / 720 400 / 400 Output: Urine 3050 / 3050 1200 / 1200 Other: # Voids 3 4 07/08/18 18:15 Blood - Peripheral Aerobic Blood Culture - Final Staphylococcus coag negative 07/08/18 18:15 Blood - Peripheral Anaerobic Blood Culture - Final Group A beta Strep 07/10/18 05:53 Blood - Peripheral Aerobic Blood Culture - Preliminary No growth in 1 day 07/10/18 05:53 Blood - Peripheral Anaerobic Blood Culture - Preliminary No growth in 1 day 07/08/18 19:00 Blood - Peripheral Aerobic Blood Culture - Preliminary No growth in 3 days 07/08/18 19:00 Blood - Peripheral Anaerobic Blood Culture - Preliminary No growth in 3 days 07/09/18 11:30 Wound - Knee Gram Stain - Final 07/09/18 11:30 Wound - Knee Wound Culture - Final Group A beta Strep 07/08/18 20:50 Abscess - Leg Gram Stain - Final 07/08/18 20:50 Abscess - Leg Wound Culture - Final Group A beta Strep Staphylococcus aureus 07/08/18 20:10 Catheterized Urine Urine Culture - Final No growth in 48 hours Lab - Hematology Results 07/11/18 07/12/18 04:20 03:26 WBC 11.1 H 9.7 RBC 3.78 L 4.02 L Hgb 11.4 L 12.2 L Hct 33.9 L 36.6 L MCV 89.7 90.9 MCH 30.2 30.4 MCHC 33.7 33.4 RDW 14.6 14.4 Plt Count 240 256 MPV 7.2 7.2 Neut % (Auto) 80.1 H Lymph % (Auto) 9.4 [place] % (Auto) 7.3 Eos % (Auto) 3.0 Baso % (Auto) 0.2 Neut # (Auto) 8.9 H Lymph # (Auto) 1.0 [place] # (Auto) 0.8 Eos # (Auto) 0.3 Baso # (Auto) 0.0 WBC Differential . Differential Comment Auto diff final Lab - Chemistry Results 07/10/18 07/10/18 07/10/18 11:45 17:05 21:48 Sodium Potassium Chloride Carbon Dioxide Anion Gap BUN Creatinine Estimated GFR POC Glucose 242 H 280 H 257 H Random Glucose Calcium Magnesium Total Bilirubin AST ALT Alkaline Phosphatase Total Protein Albumin 07/11/18 07/11/18 07/11/18 04:20 08:29 11:15 Sodium 136 Potassium 4.5 Chloride 104 Carbon Dioxide 24.0 Anion Gap 8 BUN 16 Creatinine 0.98 Estimated GFR 81 L POC Glucose 152 H 177 H Random Glucose 191 H Calcium 8.0 L Magnesium Total Bilirubin 0.3 AST 51 H ALT 17 Alkaline Phosphatase 85 Total Protein 7.3 Albumin 2.2 L 07/11/18 07/11/18 07/12/18 17:35 21:13 03:26 Sodium 137 Potassium 4.1 Chloride 103 Carbon Dioxide 27.6 Anion Gap 6 BUN 12 Creatinine 0.84 Estimated GFR Greater than 89 POC Glucose 183 H 169 H Random Glucose 154 H Calcium 8.3 L Magnesium 1.4 L Total Bilirubin AST ALT Alkaline Phosphatase Total Protein Albumin Imaging: ITS Impressions Chest X-Ray 07/08/18 18:07 CONCLUSION: Suboptimal examination with hazy opacity in the left perihilar region and left lung base which could represent infiltrate or posterior layering effusion. Head CT 07/08/18 18:09 CONCLUSION: 1. Negative noncontrast head CT. . Chest CT 07/08/18 19:48 CONCLUSION: 1. No pneumonia or other acute cardiopulmonary disease demonstrated. 2. Enlarged, fatty liver. 3. Small hiatal hernia. Venous Doppler Study 07/09/18 00:00 CONCLUSION: 1. Suboptimal examination with decreased visualization. 2. No evidence of deep venous thrombosis. 3. Bilateral soft tissue edema right greater than left. Physical Exam: GENERAL: awake and alert, NAD SKIN: Cool and dry. Has red maculopapular rash in trunk/chest, worse eamon in his back, also now in his UE HEAD: Atraumatic. Normocephalic. No temporal wasting, or tenderness. EYES: [place] conjunctiva. No petechia or hemorrhage. Pupils equal, round and reactive to light. Extraocular movements full and intact. No scleral icterus. No injection or drainage. EARS, NOSE AND THROAT: Nose without bleeding or purulent nasal discharge. No sinus tenderness. Mucous membranes pink and moist. No oral lesions noted. No exudate. No oral thrush. NECK: Trachea midline. Short and obese. Supple and not tender, no meningeal signs CARDIOVASCULAR: Regular rate and rhythm. No murmurs, rubs or gallops heard RESPIRATORY: Clear to auscultation. Breath sounds equal bilaterally. No rales , wheezing or rhonchi ABDOMEN: Soft, non-tender, nondistended. Bowel sounds present and normoactive. No guarding. No rebound. No organomegaly. EXTREMITIES: No clubbing, cyanosis. Has very large BLE, and RLE is larger compared to the LLE, and there is improving erythema and edema in RLE. Has brownish pigmentation to his R leg NEUROLOGICAL: Grossly non-focal. PSYCHIATRIC: Normal affect, calm and cooperative. LINE: No evidence of infection Assessment and Plan - Plan Impression Group A Strep Sepsis on presentation Cellulitis RLE IMpetigo lesions on his LUE Morbid obesity Hx sleep apnea Allergy to PCN (severe) and Bactrim (rash) Rash, ?from Abx Recommendation Stop Vanco Continue Clindamycin Add IV solumedrol Continue benadryl Monitor rash Follow temps Monitor progress Wound care Explained plan to the patient D/W RN
--- NOTE | 2018-07-12 12:04 | ECHRPT ---
EXAM DATE: 07/12/2018 11:58 AM EST AGE/SEX: 48 years / Male INDICATIONS: Sepsis, cellulitis CLINICAL DATA: This is the patient's initial encounter. Patient reports that signs and symptoms have been present for 2 months and indicates a pain score of 3/10. MEDICAL/SURGICAL HISTORY: . asthma, GERD, hypertension, morbid obesity, neuropathy, overactive bladder, sleep apnea, type II diabetes mellitus . knee surgery COMPARISON: No prior exams available for comparison. TECHNIQUE: Four-cuff ankle and brachial pressures were obtained. Pulse cuff waveform tracings of the ankles were recorded, and ankle-brachial indices were calculated. PRESSURES (mmHg): Brachial (arm) : RIGHT: iv site, LEFT: 108 Ankle : RIGHT: 137, LEFT: 161 YONY : RIGHT: 1.27, LEFT: 1.49 TBI : RIGHT: 0.71, LEFT: 0.57 FINDINGS: Pulsed-Cuff Waveform: There are good upstroke and a dicrotic downstroke of the tracings. Other: None. CONCLUSION: 1. No evidence for any significant vascular occlusive disease. Electronically signed by: Melva Espinoza MD Board Certified Radiologist 07/12/2018 12:03 PM EST
--- NOTE | 2018-07-12 12:43 | P.PNVS ---
Subjective Subjective/Hospital Course: No acute issue Objective Vital Signs / I&O: Vital Signs 07/11/18 16:00 07/11/18 20:00 07/12/18 00:00 Temperature 99.3 F 98.4 F 98.2 F Pulse Rate 103 H 99 H 77 Respiratory Rate 32 H 20 18 Blood Pressure 140/72 124/56 L 110/59 L Pulse Oximetry 93 L 94 L 94 L 07/12/18 04:00 07/12/18 08:03 07/12/18 11:21 Temperature 98.4 F Pulse Rate 73 Respiratory Rate 20 16 Blood Pressure 108/60 Pulse Oximetry 95 95 Intake & Output 07/11/18 07/12/18 07/12/18 18:59 06:59 18:59 Intake Total 1551 / 1551 1137 / 1137 100 / 100 Output Total 3050 / 3050 1200 / 1200 Balance -1499 / -1499 -63 / -63 100 / 100 Weight 224 kg Intake: IV 831 / 831 737 / 737 100 / 100 Azactam Inj 2 GM In NS Inj 100 200 / 200 ML @ 200 mls/hr IV.SIG Q6H FLEX Rx#:[id number] Cleocin Inj 900 MG In NS Inj 106 / 106 212 / 212 100 ML @ 100 mls/hr IV.SIG Q8H FLEX Rx#:[id number] Magnesium Sulfate 1 gm/D5W 100 100 / 100 ml Premix 100 ML @ 100 mls/hr IV.SIG Q1H FLEX Rx#:[id number] Vancomycin Inj 2,500 MG In NS 525 / 525 525 / 525 Inj 500 ML @ 250 mls/hr IV.SIG Q12H FLEX Rx#:[id number] Oral 720 / 720 400 / 400 Output: Urine 3050 / 3050 1200 / 1200 Other: # Voids 3 4 Physical Exam: BLE lower ext dressing CDI Laboratory Results - last 24 hr 07/11/18 07/11/18 07/11/18 17:35 21:13 21:27 WBC RBC Hgb Hct MCV MCH MCHC RDW Plt Count MPV Sodium Potassium Chloride Carbon Dioxide Anion Gap BUN Creatinine Estimated GFR POC Glucose 183 H 169 H Random Glucose Calcium Magnesium Vancomycin Trough 15.5 H 07/12/18 07/12/18 03:26 03:26 WBC 9.7 RBC 4.02 L Hgb 12.2 L Hct 36.6 L MCV 90.9 MCH 30.4 MCHC 33.4 RDW 14.4 Plt Count 256 MPV 7.2 Sodium 137 Potassium 4.1 Chloride 103 Carbon Dioxide 27.6 Anion Gap 6 BUN 12 Creatinine 0.84 Estimated GFR Greater than 89 POC Glucose Random Glucose 154 H Calcium 8.3 L Magnesium 1.4 L Vancomycin Trough Microbiology 07/10/18 05:53 Aerobic Blood Culture - Preliminary Blood - Peripheral No growth in 2 days Anaerobic Blood Culture - Preliminary No growth in 2 days 07/08/18 19:00 Aerobic Blood Culture - Preliminary Blood - Peripheral No growth in 4 days Anaerobic Blood Culture - Preliminary No growth in 4 days 07/08/18 18:15 Aerobic Blood Culture - Final Blood - Peripheral Staphylococcus coag negative Anaerobic Blood Culture - Final Group A beta Strep 07/09/18 11:30 Gram Stain - Final Wound - Knee Wound Culture - Final Group A beta Strep 07/08/18 20:50 Gram Stain - Final Abscess - Leg Wound Culture - Final Group A beta Strep Staphylococcus aureus Impressions Extremity Arterial Study 07/11/18 00:00 CONCLUSION: 1. No evidence for any significant vascular occlusive disease. Assessment and Plan - Assessment (1) Chronic venous insufficiency Code(s): I87.2 - Venous insufficiency (chronic) (peripheral) Status: Acute (2) Chronic acquired lymphedema Code(s): I89.0 - Lymphedema, not elsewhere classified Status: Acute - Plan I will schedule the patient for FU appointment in 4 weeks My office will call patient for scheduling availability [facility] [phone]
[2018-07-12] MEDS: MethylPREDNISolone Sod Succinate Inj 40 MG/ML Vial IV.PUSH SCH ×2 (13:41→21:35)
[2018-07-13] MEDS: Chlorhexidine Gluconate 2% 1 Pack (2 Cloths) TOPICAL SCH (05:43)
[2018-07-13] MEDS: Gabapentin 400 MG Capsule PO SCH ×3 (09:07→18:19)
[2018-07-13] MEDS: Magnesium Oxide 400 MG Tablet PO SCH ×2 (09:07→20:36)
[2018-07-13] MEDS: Tolterodine Tartrate LA 4 MG Capsule PO SCH (09:07)
[2018-07-13] MEDS: MethylPREDNISolone Sod Succinate Inj 40 MG/ML Vial IV.PUSH SCH ×2 (09:07→20:38)
[2018-07-13] MEDS: Carisoprodol 350 MG Tablet PO SCH ×3 (09:07→18:19)
[2018-07-13] MEDS: buPROPion 150 MG 12 HR Tablet PO SCH (09:07)
[2018-07-13] MEDS: Pantoprazole Sodium 20 MG DR Tablet PO SCH (09:07)
[2018-07-13] MEDS: Insulin NovoLOG Aspart Correctional Sugar Inj SQ SCH ×4 (09:07→20:39)
[2018-07-13] MEDS: Nystatin 100,000 UNITS/GM Powder 15 GM Bottle TOPICAL SCH ×4 (09:08→20:46)
[2018-07-13] MEDS: Collagenase Oint 30 GM Tube TOPICAL SCH (09:08)
[2018-07-13 09:21] LABS: Hematocrit 42.3 % (39.0-51.0); Hemoglobin 13.9 gm/dL (13.0-17.0); Mean Corpuscular HGB Conc 32.9 % (32.0-36.0); Mean Corpuscular Hemoglobin 30.1 pg (27.0-34.0); Mean Corpuscular Volume 91.5 fL (80.0-100.0); Mean Platelet Volume 7.3 fL (7.0-11.0); Platelet Count 230 th/mm3 (150-450); Red Blood Count 4.62 mil/mm3 (4.50-5.90); Red Cell Distribution Width 14.6 % (11.6-17.2); White Blood Count 11.1 th/mm3 (4.0-11.0)
[2018-07-13 09:39] LABS: Calcium 8.8 mg/dL (8.5-10.1); Carbon Dioxide 26.1 meq/L (21.0-32.0); Magnesium 1.7 mg/dL (1.5-2.5)
[2018-07-13 09:41] LABS: Potassium 5.4 meq/L (3.5-5.1)
--- NOTE | 2018-07-13 11:11 | P.PNID ---
Subjective Remarks: Patient is a morbidly obese 48-year-old male, presented to the hospital after he was found with altered mental status. 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 He was just staring and nonverbal. He was also hypotensive. He was brought into the emergency room, and was given fluid resuscitation with improvement in his blood pressure. He also had a temperature of 103.1. Patient stated that he was not feeling good that day. Patient has multiple sores, he has some in his left upper extremity, and he states that he scratches a lot. However the wounds on the leg on the right he could not really determine how he developed them. He is currently complaining of pain in the right lower extremity. He has had problem with pain due to his sciatica but this is worse. Patient's mental status is markedly improved since his been in the hospital. He has a dry cough. Denies any chest pain. He has sleep apnea and used to be on a BiPAP machine but apparently he has not been using them. There is been no nausea or vomiting. No diarrhea. No urinary complaints. CT of the chest did not show any acute infiltrate. CT of the head is negative. Ultrasound did not show any DVT in the lower extremity. This morning 1 of the blood culture is now reported as growing gram-positive cocci in pairs and chains. Infectious disease consultation has been requested to assist with evaluation and treatment. Notes reviewed Temps ok Rash worse C/O itching Got last dose of Vanco yesterday at 11 am BP ok Pain RLE stable BC with GAS Wound R knee - GAS Wound R leg - GAS and Staph aureus Benadryl not working Antibiotics: Clindamycin Past Medical History: Sleep apnea Asthma GERD (gastroesophageal reflux disease) Hypertension Morbid obesity Neuropathy Overactive bladder Type 2 diabetes mellitus Knee surgery Allergies/Adverse Reactions: Allergies peas Allergy (Severe, Verified 07/08/18 18:07) Anaphylaxis penicillin G Allergy (Severe, Verified 07/08/18 18:07) Anaphylaxis Sulfa (Sulfonamide Antibiotics) Allergy (Severe, Verified 07/08/18 18:07) Anaphylaxis *MDRO Multi-Drug Resistant Organism Adverse Reaction (Unknown, Uncoded 07/08/18 18:07) unknown MRSA PCR Screen negative 02/09/15 and 02/13/15. Cleared per Infection Control. Objective Vital Signs 07/12/18 11:21 07/12/18 12:00 07/12/18 12:01 Temperature 98.5 F Pulse Rate 85 83 Respiratory Rate 16 38 H 29 H Blood Pressure 127/53 L Pulse Oximetry 97 97 07/12/18 13:00 07/12/18 14:00 07/12/18 14:02 Temperature Pulse Rate 88 83 85 Respiratory Rate 29 H 29 H 21 Blood Pressure 100/66 82/49 L 146/74 H Pulse Oximetry 95 95 96 07/12/18 15:00 07/12/18 16:00 07/12/18 19:45 Temperature Pulse Rate 83 81 Respiratory Rate 21 18 20 Blood Pressure 146/84 H 157/75 H Pulse Oximetry 93 L 95 07/12/18 20:00 07/12/18 20:34 07/12/18 22:58 Temperature 97.0 F L Pulse Rate 83 79 Respiratory Rate 20 20 Blood Pressure 150/90 H Pulse Oximetry 94 L 95 96 07/13/18 00:00 07/13/18 04:00 07/13/18 07:37 Temperature 98 F 97.6 F Pulse Rate 65 59 L 60 Respiratory Rate 20 17 19 Blood Pressure 116/74 Pulse Oximetry 95 93 L 07/13/18 08:00 Temperature 97.3 F L Pulse Rate 65 Respiratory Rate 17 Blood Pressure 138/66 Pulse Oximetry 95 Intake & Output 07/12/18 07/13/18 07/13/18 18:59 06:59 18:59 Intake Total 1256 / 1256 212 / 212 Output Total 1600 / 1600 Balance -344 / -344 212 / 212 Weight 219.6 kg Intake: IV 356 / 356 212 / 212 Cleocin Inj 900 MG In NS Inj 106 / 106 212 / 212 100 ML @ 100 mls/hr IV.SIG Q8H FLEX Rx#:[id number] Magnesium Sulfate 1 gm/D5W 100 200 / 200 ml Premix 100 ML @ 100 mls/hr IV.SIG Q1H FLEX Rx#:[id number] Vancomycin Inj 2,500 MG In NS 50 / 50 Inj 500 ML @ 250 mls/hr IV.SIG Q12H FLEX Rx#:[id number] Oral 900 / 900 0 / 0 Output: Urine 1600 / 1600 07/10/18 05:53 Blood - Peripheral Aerobic Blood Culture - Preliminary No growth in 3 days 07/10/18 05:53 Blood - Peripheral Anaerobic Blood Culture - Preliminary No growth in 3 days 07/08/18 19:00 Blood - Peripheral Aerobic Blood Culture - Final No growth in 5 days 07/08/18 19:00 Blood - Peripheral Anaerobic Blood Culture - Final No growth in 5 days 07/08/18 18:15 Blood - Peripheral Aerobic Blood Culture - Final Staphylococcus coag negative 07/08/18 18:15 Blood - Peripheral Anaerobic Blood Culture - Final Group A beta Strep 07/09/18 11:30 Wound - Knee Gram Stain - Final 07/09/18 11:30 Wound - Knee Wound Culture - Final Group A beta Strep 07/08/18 20:50 Abscess - Leg Gram Stain - Final 07/08/18 20:50 Abscess - Leg Wound Culture - Final Group A beta Strep Staphylococcus aureus 07/08/18 20:10 Catheterized Urine Urine Culture - Final No growth in 48 hours Lab - Hematology Results 07/12/18 07/13/18 03:26 06:40 WBC 9.7 11.1 H RBC 4.02 L 4.62 Hgb 12.2 L 13.9 Hct 36.6 L 42.3 MCV 90.9 91.5 MCH 30.4 30.1 MCHC 33.4 32.9 RDW 14.4 14.6 Plt Count 256 230 MPV 7.2 7.3 Lab - Chemistry Results 07/11/18 07/11/18 07/11/18 11:15 17:35 21:13 Sodium Potassium Chloride Carbon Dioxide Anion Gap BUN Creatinine Estimated GFR POC Glucose 177 H 183 H 169 H Random Glucose Calcium Magnesium 07/12/18 07/12/18 07/12/18 03:26 13:05 18:23 Sodium 137 Potassium 4.1 Chloride 103 Carbon Dioxide 27.6 Anion Gap 6 BUN 12 Creatinine 0.84 Estimated GFR Greater than 89 POC Glucose 157 H 248 H Random Glucose 154 H Calcium 8.3 L Magnesium 1.4 L 07/12/18 07/12/18 07/13/18 19:08 20:03 06:40 Sodium 132 L Potassium 5.4 H D Chloride 99 Carbon Dioxide 26.1 Anion Gap 7 BUN 18 Creatinine 0.93 Estimated GFR 86 L POC Glucose 266 H 269 H Random Glucose 208 H Calcium 8.8 Magnesium 1.7 07/13/18 08:11 Sodium Potassium Chloride Carbon Dioxide Anion Gap BUN Creatinine Estimated GFR POC Glucose 227 H Random Glucose Calcium Magnesium Imaging: ITS Impressions Chest X-Ray 07/08/18 18:07 CONCLUSION: Suboptimal examination with hazy opacity in the left perihilar region and left lung base which could represent infiltrate or posterior layering effusion. Head CT 07/08/18 18:09 CONCLUSION: 1. Negative noncontrast head CT. . Chest CT 07/08/18 19:48 CONCLUSION: 1. No pneumonia or other acute cardiopulmonary disease demonstrated. 2. Enlarged, fatty liver. 3. Small hiatal hernia. Venous Doppler Study 07/09/18 00:00 CONCLUSION: 1. Suboptimal examination with decreased visualization. 2. No evidence of deep venous thrombosis. 3. Bilateral soft tissue edema right greater than left. Extremity Arterial Study 07/11/18 00:00 CONCLUSION: 1. No evidence for any significant vascular occlusive disease. Physical Exam: GENERAL: awake and alert, NAD SKIN: Cool and dry. Has red maculopapular rash, generalized, worse HEAD: Atraumatic. Normocephalic. No temporal wasting, or tenderness. EYES: [place] conjunctiva. No petechia or hemorrhage. Pupils equal, round and reactive to light. Extraocular movements full and intact. No scleral icterus. No injection or drainage. EARS, NOSE AND THROAT: Nose without bleeding or purulent nasal discharge. No sinus tenderness. Mucous membranes pink and moist. No oral lesions noted. No exudate. No oral thrush. NECK: Trachea midline. Short and obese. Supple and not tender, no meningeal signs CARDIOVASCULAR: Regular rate and rhythm. No murmurs, rubs or gallops heard RESPIRATORY: Clear to auscultation. Breath sounds equal bilaterally. No rales , wheezing or rhonchi ABDOMEN: Soft, non-tender, nondistended. Bowel sounds present and normoactive. No guarding. No rebound. No organomegaly. EXTREMITIES: No clubbing, cyanosis. Has very large BLE, and RLE is larger compared to the LLE, and there is improving erythema and edema in RLE. Has brownish pigmentation to his R leg NEUROLOGICAL: Grossly non-focal. PSYCHIATRIC: Normal affect, calm and cooperative. LINE: No evidence of infection Assessment and Plan - Plan Impression Group A Strep Sepsis on presentation Cellulitis RLE IMpetigo lesions on his LUE Morbid obesity Hx sleep apnea Allergy to PCN (severe) and Bactrim (rash) Rash, ?from Abx Recommendation Hold Clindamycin today Continue IV solumedrol - may need longer dose Continue benadryl Monitor rash Follow temps Monitor progress Wound care Explained plan to the patient D/W Dr Mary ([facility])
--- NOTE | 2018-07-13 11:29 | P.PNIM ---
Subjective Interval history: Patient complains of itching all over his body. Otherwise no complaints. Physical Exam Vital signs: Vital Signs 07/12/18 11:21 07/12/18 12:00 07/12/18 12:01 Temperature 98.5 F Pulse Rate 85 83 Respiratory Rate 16 38 H 29 H Blood Pressure 127/53 L Pulse Oximetry 97 97 07/12/18 13:00 07/12/18 14:00 07/12/18 14:02 Temperature Pulse Rate 88 83 85 Respiratory Rate 29 H 29 H 21 Blood Pressure 100/66 82/49 L 146/74 H Pulse Oximetry 95 95 96 07/12/18 15:00 07/12/18 16:00 07/12/18 19:45 Temperature Pulse Rate 83 81 Respiratory Rate 21 18 20 Blood Pressure 146/84 H 157/75 H Pulse Oximetry 93 L 95 07/12/18 20:00 07/12/18 20:34 07/12/18 22:58 Temperature 97.0 F L Pulse Rate 83 79 Respiratory Rate 20 20 Blood Pressure 150/90 H Pulse Oximetry 94 L 95 96 07/13/18 00:00 07/13/18 04:00 07/13/18 07:37 Temperature 98 F 97.6 F Pulse Rate 65 59 L 60 Respiratory Rate 20 17 19 Blood Pressure 116/74 Pulse Oximetry 95 93 L 07/13/18 08:00 Temperature 97.3 F L Pulse Rate 65 Respiratory Rate 17 Blood Pressure 138/66 Pulse Oximetry 95 Intake & Output 07/12/18 07/13/18 07/13/18 18:59 06:59 18:59 Intake Total 1256 / 1256 212 / 212 Output Total 1600 / 1600 Balance -344 / -344 212 / 212 Weight 219.6 kg Intake: IV 356 / 356 212 / 212 Cleocin Inj 900 MG In NS Inj 106 / 106 212 / 212 100 ML @ 100 mls/hr IV.SIG Q8H FLEX Rx#:[id number] Magnesium Sulfate 1 gm/D5W 100 200 / 200 ml Premix 100 ML @ 100 mls/hr IV.SIG Q1H FLEX Rx#:[id number] Vancomycin Inj 2,500 MG In NS 50 / 50 Inj 500 ML @ 250 mls/hr IV.SIG Q12H FLEX Rx#:[id number] Oral 900 / 900 0 / 0 Output: Urine 1600 / 1600 Narrative: General patient appears to have a diffuse rash over his chest and abdomen and extremities. HEENT extraocular movements are intact, clear oropharyngeal mucosa, no JVD Cardiovascular S1-S2 audible, RRR, no murmurs rubs or gallops Respiratory clear to auscultation bilaterally Abdomen soft, nontender, nondistended, normal bowel sounds Extremities left lower extremity wound with dressing intact Neuro no focal neurological deficits. - Urinary Catheter Management Indwelling Temp Sensing Catheter Cath placed during this visit: yes, but has since been removed by the nurse Reason for continuing: Decision to DC catheter Insertion date: 07/08/18 Insertion time: 20:05 Removal date: 07/10/18 Removal time: 09:10 Results - Labs CBC & Chem 7: 07/13/18 06:40 07/13/18 06:40 Laboratory Results - last 24 hr 07/12/18 07/12/18 07/12/18 13:05 18:23 19:08 WBC RBC Hgb Hct MCV MCH MCHC RDW Plt Count MPV Sodium Potassium Chloride Carbon Dioxide Anion Gap BUN Creatinine Estimated GFR POC Glucose 157 H 248 H 266 H Random Glucose Calcium Magnesium 07/12/18 07/13/18 07/13/18 20:03 06:40 06:40 WBC 11.1 H RBC 4.62 Hgb 13.9 Hct 42.3 MCV 91.5 MCH 30.1 MCHC 32.9 RDW 14.6 Plt Count 230 MPV 7.3 Sodium 132 L Potassium 5.4 H D Chloride 99 Carbon Dioxide 26.1 Anion Gap 7 BUN 18 Creatinine 0.93 Estimated GFR 86 L POC Glucose 269 H Random Glucose 208 H Calcium 8.8 Magnesium 1.7 07/13/18 08:11 WBC RBC Hgb Hct MCV MCH MCHC RDW Plt Count MPV Sodium Potassium Chloride Carbon Dioxide Anion Gap BUN Creatinine Estimated GFR POC Glucose 227 H Random Glucose Calcium Magnesium Microbiology 07/10/18 05:53 Blood - Peripheral Aerobic Blood Culture - Preliminary No growth in 3 days 07/10/18 05:53 Blood - Peripheral Anaerobic Blood Culture - Preliminary No growth in 3 days 07/08/18 19:00 Blood - Peripheral Aerobic Blood Culture - Final No growth in 5 days 07/08/18 19:00 Blood - Peripheral Anaerobic Blood Culture - Final No growth in 5 days - Imaging Impressions Extremity Arterial Study 07/11/18 00:00 CONCLUSION: 1. No evidence for any significant vascular occlusive disease. Assessment and Plan - Assessment (1) Chronic venous insufficiency Code(s): I87.2 - Venous insufficiency (chronic) (peripheral) Status: Acute (2) Chronic acquired lymphedema Code(s): I89.0 - Lymphedema, not elsewhere classified Status: Acute - Plan This patient is a 48-year-old male with multiple medical comorbidities including diabetes, anxiety, depression. The patient presented to our hospital with acute encephalopathy as well as accelerated hypertension. He was admitted for sepsis secondary to bilateral lower extremity cellulitis. 1. Sepsis secondary to bilateral lower extremity cellulitis. 2. Acute encephalopathy likely secondary to #1 Patient is currently on IV antibiotics. WBC count was elevated, patient was also febrile. WBC count has improved significantly. Patient is currently on IV antibiotics, infectious disease is following. Initially blood cultures were positive growing group A strep, and staph. Repeat blood cultures are negative. Infectious disease recommended holding clindamycin today given a diffuse rash all over the patient's body. Continue steroids and Benadryl. We will continue to monitor the patient. Vascular surgery evaluated the patient, no immediate intervention necessary. The patient can follow-up with vascular surgery outpatient after discharge. Discussed with Dr. Abreu from vascular surgery. Acute encephalopathy has resolved. 2. Hyperkalemia Patient has a slightly elevated serum potassium level of 5.4. Follow-up a.m. labs no urgent intervention necessary as of now. Continue to monitor on telemetry. 2. Obstructive sleep apnea Continue DuoNeb treatments as needed BiPAP at night Patient currently on 3L of oxygen, his oxygen sats are above 92%, I asked the nurse to wean him off of oxygen. He does not use home oxygen. 3. Diabetes mellitus type 2 Continue low-dose insulin sliding scale [place] continue Accu-Cheks. 4. Morbid obesity Patient counseled on lifestyle modifications and diet. DVT prophylaxis, continue subcu heparin.
[2018-07-13] MEDS: Heparin - SQ 10,000 UNITS/ML Vial SQ SCH ×2 (13:27→23:00)
[2018-07-14 05:29] LABS: Calcium 8.3 mg/dL (8.5-10.1); Magnesium 1.8 mg/dL (1.5-2.5); Potassium 5.1 meq/L (3.5-5.1)
[2018-07-14] MEDS: Gabapentin 400 MG Capsule PO SCH ×3 (08:48→18:20)
[2018-07-14] MEDS: Magnesium Oxide 400 MG Tablet PO SCH ×2 (08:48→20:45)
[2018-07-14] MEDS: Carisoprodol 350 MG Tablet PO SCH ×3 (08:48→18:20)
[2018-07-14] MEDS: buPROPion 150 MG 12 HR Tablet PO SCH (08:49)
[2018-07-14] MEDS: Nystatin 100,000 UNITS/GM Powder 15 GM Bottle TOPICAL SCH ×4 (08:49→20:45)
[2018-07-14] MEDS: Insulin NovoLOG Aspart Correctional Sugar Inj SQ SCH ×4 (08:49→23:14)
[2018-07-14] MEDS: Pantoprazole Sodium 20 MG DR Tablet PO SCH (08:49)
[2018-07-14] MEDS: Tolterodine Tartrate LA 4 MG Capsule PO SCH (08:49)
[2018-07-14] MEDS: Collagenase Oint 30 GM Tube TOPICAL SCH (08:49)
--- NOTE | 2018-07-14 10:14 | P.PNIM ---
Subjective Interval history: Patient reports he is still itching. Benadryl is helping. Symptoms not worse but not resolved. No fevers. Physical Exam Vital signs: Last Vital Signs Temp 98.3 F 07/14/18 08:00 Pulse 72 07/14/18 08:00 Resp 15 07/14/18 08:04 BP 136/72 07/14/18 08:00 Pulse Ox 96 07/14/18 08:04 Intake & Output 07/12/18 07/13/18 07/14/18 07/15/18 06:59 06:59 06:59 06:59 Intake Total 2688 / 2688 1468 / 1468 960 / 960 Output Total 4250 / 4250 1600 / 1600 1300 / 1300 Balance -1562 / -1562 -132 / -132 -340 / -340 Weight 224 kg 219.6 kg 222.1 kg Narrative: General patient appears to have a diffuse rash over his chest and abdomen and extremities. HEENT extraocular movements are intact, clear oropharyngeal mucosa, no JVD Cardiovascular S1-S2 audible, RRR, no murmurs rubs or gallops Respiratory clear to auscultation bilaterally Abdomen soft, nontender, nondistended, normal bowel sounds Extremities left lower extremity wound with dressing intact Neuro no focal neurological deficits. Urinary Catheter Management Indwelling Temp Sensing Catheter: Cath placed during this visit: yes, but has since been removed by the nurse Insertion date: 07/08/18 Insertion time: 20:05 Removal date: 07/10/18 Removal time: 09:10 Results Labs CBC & Chem 7: 07/13/18 06:40 07/14/18 04:11 Labs: Microbiology 07/10/18 05:53 Blood - Peripheral Aerobic Blood Culture - Preliminary No growth in 3 days 07/10/18 05:53 Blood - Peripheral Anaerobic Blood Culture - Preliminary No growth in 3 days 07/08/18 19:00 Blood - Peripheral Aerobic Blood Culture - Final No growth in 5 days 07/08/18 19:00 Blood - Peripheral Anaerobic Blood Culture - Final No growth in 5 days Assessment and Plan (1) Chronic venous insufficiency: Code(s): I87.2 - Venous insufficiency (chronic) (peripheral) Status: Acute (2) Chronic acquired lymphedema: Code(s): I89.0 - Lymphedema, not elsewhere classified Status: Acute Plan 48-year-old male with multiple medical comorbidities including diabetes, anxiety , depression. The patient presented to our hospital with acute encephalopathy as well as accelerated hypertension. He was admitted for sepsis secondary to bilateral lower extremity cellulitis. 1. Sepsis secondary to bilateral lower extremity cellulitis. 2. Acute encephalopathy likely secondary to #1 Patient initially treated with IV antibiotics under the guidance of infectious disease. He was switched to clindamycin. Initially blood cultures were positive growing group A strep, and staph. Repeat blood cultures are negative. He developed diffuse rash. Clindamycin discontinued. Patient started on oral Levaquin per ID. Will continue Benadryl as needed. Continue Solu-Medrol IV. Wean off as quickly as possible given diabetes. We will continue to monitor the patient. Vascular surgery evaluated the patient, no immediate intervention necessary. The patient can follow-up with vascular surgery outpatient after discharge. Discussed with Dr. Abreu from vascular surgery. Acute encephalopathy has resolved. 2. Hyperkalemia Resolved 2. Obstructive sleep apnea Continue DuoNeb treatments as needed BiPAP at night Wean off oxygen as tolerated. He does not use home oxygen. 3. Diabetes mellitus type 2 Continue low-dose insulin sliding scale insulin continue Accu-Cheks. 4. Morbid obesity Patient counseled on lifestyle modifications and diet. DVT prophylaxis, continue subcu heparin. Progress Note: Quality VTE Deep Vein Thrombosis/Pulmonary Embolism Present on Admission: No
--- NOTE | 2018-07-14 13:10 | P.PNID ---
Subjective Remarks: Patient is a morbidly obese 48-year-old male, presented to the hospital after he was found with altered mental status. 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 He was just staring and nonverbal. He was also hypotensive. He was brought into the emergency room, and was given fluid resuscitation with improvement in his blood pressure. He also had a temperature of 103.1. Patient stated that he was not feeling good that day. Patient has multiple sores, he has some in his left upper extremity, and he states that he scratches a lot. However the wounds on the leg on the right he could not really determine how he developed them. He is currently complaining of pain in the right lower extremity. He has had problem with pain due to his sciatica but this is worse. Patient's mental status is markedly improved since his been in the hospital. He has a dry cough. Denies any chest pain. He has sleep apnea and used to be on a BiPAP machine but apparently he has not been using them. There is been no nausea or vomiting. No diarrhea. No urinary complaints. CT of the chest did not show any acute infiltrate. CT of the head is negative. Ultrasound did not show any DVT in the lower extremity. This morning 1 of the blood culture is now reported as growing gram-positive cocci in pairs and chains. Infectious disease consultation has been requested to assist with evaluation and treatment. Notes reviewed Temps ok Rash still very itchy Got last dose of Vanco 07/12 at 11 am Got last dose Clinda 07/13 at 630 am BP ok Pain RLE stable BC with GAS one set Wound R knee - GAS Wound R leg - GAS and Staph aureus Benadryl not working Antibiotics: Clindamycin Past Medical History: Sleep apnea Asthma GERD (gastroesophageal reflux disease) Hypertension Morbid obesity Neuropathy Overactive bladder Type 2 diabetes mellitus Knee surgery Allergies/Adverse Reactions: Allergies peas Allergy (Severe, Verified 07/08/18 18:07) Anaphylaxis penicillin G Allergy (Severe, Verified 07/08/18 18:07) Anaphylaxis Sulfa (Sulfonamide Antibiotics) Allergy (Severe, Verified 07/08/18 18:07) Anaphylaxis *MDRO Multi-Drug Resistant Organism Adverse Reaction (Unknown, Uncoded 07/08/18 18:07) unknown MRSA PCR Screen negative 02/09/15 and 02/13/15. Cleared per Infection Control. Objective Vital Signs 07/13/18 16:00 07/13/18 19:22 07/13/18 20:00 Temperature 97.2 F L 97.4 F L Pulse Rate 77 66 70 Respiratory Rate 20 Blood Pressure 127/77 104/58 L Pulse Oximetry 95 93 L 95 07/13/18 22:13 07/14/18 00:00 07/14/18 03:56 Temperature 98.8 F Pulse Rate 74 Respiratory Rate 19 Blood Pressure 110/92 H Pulse Oximetry 95 98 93 L 07/14/18 04:00 07/14/18 08:00 07/14/18 08:04 Temperature 97.5 F L 98.3 F Pulse Rate 82 72 Respiratory Rate 15 Blood Pressure 148/62 H 136/72 Pulse Oximetry 95 95 96 Intake & Output 07/13/18 07/14/18 07/14/18 18:59 06:59 18:59 Intake Total 720 / 720 240 / 240 Output Total 600 / 600 700 / 700 Balance 120 / 120 -460 / -460 Weight 222.1 kg Intake: Oral 720 / 720 240 / 240 Output: Urine 600 / 600 700 / 700 Other: # Bowel Movements 0 07/10/18 05:53 Blood - Peripheral Aerobic Blood Culture - Preliminary No growth in 4 days 07/10/18 05:53 Blood - Peripheral Anaerobic Blood Culture - Preliminary No growth in 4 days 07/08/18 19:00 Blood - Peripheral Aerobic Blood Culture - Final No growth in 5 days 07/08/18 19:00 Blood - Peripheral Anaerobic Blood Culture - Final No growth in 5 days 07/08/18 18:15 Blood - Peripheral Aerobic Blood Culture - Final Staphylococcus coag negative 07/08/18 18:15 Blood - Peripheral Anaerobic Blood Culture - Final Group A beta Strep 07/09/18 11:30 Wound - Knee Gram Stain - Final 07/09/18 11:30 Wound - Knee Wound Culture - Final Group A beta Strep 07/08/18 20:50 Abscess - Leg Gram Stain - Final 07/08/18 20:50 Abscess - Leg Wound Culture - Final Group A beta Strep Staphylococcus aureus Lab - Hematology Results 07/13/18 06:40 WBC 11.1 H RBC 4.62 Hgb 13.9 Hct 42.3 MCV 91.5 MCH 30.1 MCHC 32.9 RDW 14.6 Plt Count 230 MPV 7.3 Lab - Chemistry Results 07/12/18 07/12/18 07/12/18 18:23 19:08 20:03 Sodium Potassium Chloride Carbon Dioxide Anion Gap BUN Creatinine Estimated GFR POC Glucose 248 H 266 H 269 H Random Glucose Calcium Magnesium 07/13/18 07/13/18 07/13/18 06:40 08:11 12:31 Sodium 132 L Potassium 5.4 H D Chloride 99 Carbon Dioxide 26.1 Anion Gap 7 BUN 18 Creatinine 0.93 Estimated GFR 86 L POC Glucose 227 H 216 H Random Glucose 208 H Calcium 8.8 Magnesium 1.7 07/13/18 07/13/18 07/14/18 17:25 20:10 04:11 Sodium 134 L Potassium 5.1 Chloride 98 Carbon Dioxide 31.0 Anion Gap 5 BUN 24 H Creatinine 0.98 Estimated GFR 81 L POC Glucose 280 H 289 H Random Glucose 285 H Calcium 8.3 L Magnesium 1.8 07/14/18 07/14/18 08:00 12:19 Sodium Potassium Chloride Carbon Dioxide Anion Gap BUN Creatinine Estimated GFR POC Glucose 247 H 216 H Random Glucose Calcium Magnesium Imaging: ITS Impressions Chest X-Ray 07/08/18 18:07 CONCLUSION: Suboptimal examination with hazy opacity in the left perihilar region and left lung base which could represent infiltrate or posterior layering effusion. Head CT 07/08/18 18:09 CONCLUSION: 1. Negative noncontrast head CT. . Chest CT 07/08/18 19:48 CONCLUSION: 1. No pneumonia or other acute cardiopulmonary disease demonstrated. 2. Enlarged, fatty liver. 3. Small hiatal hernia. Venous Doppler Study 07/09/18 00:00 CONCLUSION: 1. Suboptimal examination with decreased visualization. 2. No evidence of deep venous thrombosis. 3. Bilateral soft tissue edema right greater than left. Extremity Arterial Study 07/11/18 00:00 CONCLUSION: 1. No evidence for any significant vascular occlusive disease. Physical Exam: GENERAL: awake and alert, NAD SKIN: Cool and dry. Has red maculopapular rash, generalized, stable compared to yesterday . EYES: [place] conjunctiva. No petechia or hemorrhage. No scleral icterus. No injection or drainage. EARS, NOSE AND THROAT: Mucous membranes pink and moist. No oral lesions noted. No exudate. No oral thrush. NECK: Trachea midline. Short and obese. Supple and not tender, no meningeal signs CARDIOVASCULAR: Regular rate and rhythm. No murmurs, rubs or gallops heard RESPIRATORY: Clear to auscultation. Breath sounds equal bilaterally. No rales , wheezing or rhonchi ABDOMEN: Soft, non-tender, nondistended. Bowel sounds present and normoactive. No guarding. No rebound. No organomegaly. EXTREMITIES: No clubbing, cyanosis. Has very large BLE, and RLE is larger compared to the LLE, and there is improving erythema and edema in RLE. Has brownish pigmentation to his R leg NEUROLOGICAL: Grossly non-focal. PSYCHIATRIC: Normal affect, calm and cooperative. LINE: No evidence of infection Assessment and Plan - Plan Impression Group A Strep Sepsis on presentation Cellulitis RLE IMpetigo lesions on his LUE Morbid obesity Hx sleep apnea Allergy to PCN (severe) and Bactrim (rash) Rash, ?from Abx Recommendation Stop Clindamycin today Continue IV solumedrol Continue benadryl PO Levaquin Monitor rash Follow temps Monitor progress Wound care Explained plan to the patient
[2018-07-14] MEDS: Heparin - SQ 10,000 UNITS/ML Vial SQ SCH ×2 (13:53→23:16)
[2018-07-14] MEDS: MethylPREDNISolone Sod Succinate Inj 40 MG/ML Vial IV.PUSH SCH ×2 (13:53→20:45)
[2018-07-14] MEDS: levoFLOXacin 750 MG Tablet PO SCH (13:54)
[2018-07-15 07:10] LABS: Hematocrit 36.8 % (39.0-51.0); Hemoglobin 12.5 gm/dL (13.0-17.0); Mean Corpuscular HGB Conc 34.1 % (32.0-36.0); Mean Corpuscular Hemoglobin 30.5 pg (27.0-34.0); Mean Corpuscular Volume 89.7 fL (80.0-100.0); Mean Platelet Volume 7.6 fL (7.0-11.0); Platelet Count 334 th/mm3 (150-450); Red Cell Distribution Width 14.9 % (11.6-17.2); White Blood Count 10.9 th/mm3 (4.0-11.0)
[2018-07-15 07:44] LABS: Calcium 8.5 mg/dL (8.5-10.1); Carbon Dioxide 30.2 meq/L (21.0-32.0); Potassium 4.7 meq/L (3.5-5.1)
[2018-07-15] MEDS: Carisoprodol 350 MG Tablet PO SCH ×3 (08:02→17:07)
[2018-07-15] MEDS: MethylPREDNISolone Sod Succinate Inj 40 MG/ML Vial IV.PUSH SCH (08:02)
[2018-07-15] MEDS: Magnesium Oxide 400 MG Tablet PO SCH ×2 (08:02→22:22)
[2018-07-15] MEDS: Tolterodine Tartrate LA 4 MG Capsule PO SCH (08:02)
[2018-07-15] MEDS: buPROPion 150 MG 12 HR Tablet PO SCH (08:02)
[2018-07-15] MEDS: Gabapentin 400 MG Capsule PO SCH ×3 (08:02→17:08)
[2018-07-15] MEDS: levoFLOXacin 750 MG Tablet PO SCH (08:02)
[2018-07-15] MEDS: Pantoprazole Sodium 20 MG DR Tablet PO SCH (08:02)
[2018-07-15] MEDS: Insulin NovoLOG Aspart Correctional Sugar Inj SQ SCH ×4 (08:03→22:22)
[2018-07-15] MEDS: Nystatin 100,000 UNITS/GM Powder 15 GM Bottle TOPICAL SCH ×4 (08:04→22:23)
[2018-07-15] MEDS: Collagenase Oint 30 GM Tube TOPICAL SCH (08:04)
--- NOTE | 2018-07-15 09:54 | P.PNIM ---
Subjective Interval history: Patient reports that he still having some itching. Some improvement. Afebrile. He has not been out of bed. Physical Exam Vital signs: Last Vital Signs Temp 97.4 F L 07/15/18 08:00 Pulse 63 07/15/18 08:00 Resp 18 07/15/18 08:00 BP 144/88 H 07/15/18 08:00 Pulse Ox 96 07/15/18 08:00 Intake & Output 07/13/18 07/14/18 07/15/18 07/16/18 06:59 06:59 06:59 06:59 Intake Total 1468 / 1468 960 / 960 1160 / 1160 Output Total 1600 / 1600 1300 / 1300 4250 / 4250 Balance -132 / -132 -340 / -340 -3090 / -3090 Weight 219.6 kg 222.1 kg 215.2 kg Narrative: General patient appears to have a diffuse rash over his chest and abdomen and extremities. HEENT extraocular movements are intact, clear oropharyngeal mucosa, no JVD Cardiovascular S1-S2 audible, RRR, no murmurs rubs or gallops Respiratory clear to auscultation bilaterally Abdomen soft, nontender, nondistended, normal bowel sounds Extremities left lower extremity wound with dressing intact Neuro no focal neurological deficits. Appeared to be very deconditioned Urinary Catheter Management Indwelling Temp Sensing Catheter: Cath placed during this visit: yes, but has since been removed by the nurse Insertion date: 07/08/18 Insertion time: 20:05 Removal date: 07/10/18 Removal time: 09:10 Results Labs CBC & Chem 7: 07/15/18 04:17 07/15/18 04:17 Labs: Microbiology 07/10/18 05:53 Blood - Peripheral Aerobic Blood Culture - Preliminary No growth in 4 days 07/10/18 05:53 Blood - Peripheral Anaerobic Blood Culture - Preliminary No growth in 4 days Assessment and Plan (1) Chronic venous insufficiency: Code(s): I87.2 - Venous insufficiency (chronic) (peripheral) Status: Acute (2) Chronic acquired lymphedema: Code(s): I89.0 - Lymphedema, not elsewhere classified Status: Acute Plan 48-year-old male with multiple medical comorbidities including diabetes, anxiety , depression. The patient presented to our hospital with acute encephalopathy as well as accelerated hypertension. He was admitted for sepsis secondary to bilateral lower extremity cellulitis. 1. Sepsis secondary to bilateral lower extremity cellulitis. 2. Acute encephalopathy likely secondary to #1 Patient initially treated with IV antibiotics under the guidance of infectious disease. He was switched to clindamycin. Initially blood cultures were positive growing group A strep, and staph. Repeat blood cultures are negative. He developed diffuse rash. Clindamycin discontinued. Patient started on oral Levaquin per ID. Will continue Benadryl as needed. Has been receiving IV Solu-Medrol. Transition to oral prednisone. Wean off as quickly as possible given diabetes. We will continue to monitor the patient. Vascular surgery evaluated the patient, no immediate intervention necessary. The patient can follow-up with vascular surgery outpatient after discharge. Discussed with Dr. Abreu from vascular surgery. Acute encephalopathy has resolved. 2. Hyperkalemia Resolved 2. Obstructive sleep apnea Continue DuoNeb treatments as needed BiPAP at night Wean off oxygen as tolerated. He does not use home oxygen. 3. Diabetes mellitus type 2 Continue low-dose insulin sliding scale insulin continue Accu-Cheks. 4. Morbid obesity and severe physical deconditioning. - Consult PT to mobilize him. Patient counseled on lifestyle modifications and diet. DVT prophylaxis, continue subcu heparin. Progress Note: Quality VTE Deep Vein Thrombosis/Pulmonary Embolism Present on Admission: No
[2018-07-15] MEDS: Heparin - SQ 10,000 UNITS/ML Vial SQ SCH ×2 (11:53→22:22)
[2018-07-15] MEDS: predniSONE 20 MG Tablet PO SCH ×2 (12:12→17:08)
--- NOTE | 2018-07-15 13:59 | P.PNID ---
Subjective Remarks: Patient is a morbidly obese 48-year-old male, presented to the hospital after he was found with altered mental status. 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 He was just staring and nonverbal. He was also hypotensive. He was brought into the emergency room, and was given fluid resuscitation with improvement in his blood pressure. He also had a temperature of 103.1. Patient stated that he was not feeling good that day. Patient has multiple sores, he has some in his left upper extremity, and he states that he scratches a lot. However the wounds on the leg on the right he could not really determine how he developed them. He is currently complaining of pain in the right lower extremity. He has had problem with pain due to his sciatica but this is worse. Patient's mental status is markedly improved since his been in the hospital. He has a dry cough. Denies any chest pain. He has sleep apnea and used to be on a BiPAP machine but apparently he has not been using them. There is been no nausea or vomiting. No diarrhea. No urinary complaints. CT of the chest did not show any acute infiltrate. CT of the head is negative. Ultrasound did not show any DVT in the lower extremity. This morning 1 of the blood culture is now reported as growing gram-positive cocci in pairs and chains. Infectious disease consultation has been requested to assist with evaluation and treatment. Notes reviewed Temps ok Still C/O being itchy Also notes more pain on his RLE Currently sitting at side of the bed Got last dose of Vanco 07/12 at 11 am Got last dose Clinda 07/13 at 630 am BP ok BC with GAS one set Wound R knee - GAS Wound R leg - GAS and Staph aureus Antibiotics: Clindamycin Past Medical History: Sleep apnea Asthma GERD (gastroesophageal reflux disease) Hypertension Morbid obesity Neuropathy Overactive bladder Type 2 diabetes mellitus Knee surgery Allergies/Adverse Reactions: Allergies peas Allergy (Severe, Verified 07/08/18 18:07) Anaphylaxis penicillin G Allergy (Severe, Verified 07/08/18 18:07) Anaphylaxis Sulfa (Sulfonamide Antibiotics) Allergy (Severe, Verified 07/08/18 18:07) Anaphylaxis *MDRO Multi-Drug Resistant Organism Adverse Reaction (Unknown, Uncoded 07/08/18 18:07) unknown MRSA PCR Screen negative 02/09/15 and 02/13/15. Cleared per Infection Control. Objective Vital Signs 07/14/18 16:00 07/14/18 18:58 07/14/18 20:00 Temperature 97.5 F L 97.4 F L Pulse Rate 65 76 Respiratory Rate 20 20 Blood Pressure 150/86 H 134/68 Pulse Oximetry 94 L 94 L 94 L 07/14/18 20:50 07/14/18 22:10 07/15/18 00:00 Temperature 97.9 F Pulse Rate 65 61 Respiratory Rate 20 16 Blood Pressure 134/73 Pulse Oximetry 96 98 07/15/18 04:00 07/15/18 08:00 07/15/18 10:11 Temperature 97.3 F L 97.4 F L Pulse Rate 65 63 Respiratory Rate 17 18 Blood Pressure 144/83 H 144/88 H Pulse Oximetry 93 L 96 96 Intake & Output 07/14/18 07/15/18 07/15/18 18:59 06:59 18:59 Intake Total 920 / 920 240 / 240 Output Total 1500 / 1500 2750 / 2750 Balance -580 / -580 -2510 / -2510 Weight 215.2 kg Intake: Oral 920 / 920 240 / 240 Output: Urine 1500 / 1500 2750 / 2750 Other: Date of Last Bowel Movement 07/14/18 07/15/18 # Bowel Movements 1 2 07/10/18 05:53 Blood - Peripheral Aerobic Blood Culture - Final No growth in 5 days 07/10/18 05:53 Blood - Peripheral Anaerobic Blood Culture - Final No growth in 5 days 07/08/18 19:00 Blood - Peripheral Aerobic Blood Culture - Final No growth in 5 days 07/08/18 19:00 Blood - Peripheral Anaerobic Blood Culture - Final No growth in 5 days Lab - Hematology Results 07/15/18 04:17 WBC 10.9 RBC 4.10 L Hgb 12.5 L Hct 36.8 L MCV 89.7 MCH 30.5 MCHC 34.1 RDW 14.9 Plt Count 334 D MPV 7.6 Lab - Chemistry Results 07/13/18 07/13/18 07/14/18 17:25 20:10 04:11 Sodium 134 L Potassium 5.1 Chloride 98 Carbon Dioxide 31.0 Anion Gap 5 BUN 24 H Creatinine 0.98 Estimated GFR 81 L POC Glucose 280 H 289 H Random Glucose 285 H Calcium 8.3 L Magnesium 1.8 07/14/18 07/14/18 07/14/18 08:00 12:19 17:17 Sodium Potassium Chloride Carbon Dioxide Anion Gap BUN Creatinine Estimated GFR POC Glucose 247 H 216 H 263 H Random Glucose Calcium Magnesium 07/14/18 07/15/18 07/15/18 20:15 04:17 08:01 Sodium 133 L Potassium 4.7 Chloride 96 L Carbon Dioxide 30.2 Anion Gap 7 BUN 24 H Creatinine 1.04 Estimated GFR 76 L POC Glucose 358 H 278 H Random Glucose 335 H Calcium 8.5 Magnesium 07/15/18 12:12 Sodium Potassium Chloride Carbon Dioxide Anion Gap BUN Creatinine Estimated GFR POC Glucose 287 H Random Glucose Calcium Magnesium Imaging: ITS Impressions Chest X-Ray 07/08/18 18:07 CONCLUSION: Suboptimal examination with hazy opacity in the left perihilar region and left lung base which could represent infiltrate or posterior layering effusion. Head CT 07/08/18 18:09 CONCLUSION: 1. Negative noncontrast head CT. . Chest CT 07/08/18 19:48 CONCLUSION: 1. No pneumonia or other acute cardiopulmonary disease demonstrated. 2. Enlarged, fatty liver. 3. Small hiatal hernia. Venous Doppler Study 07/09/18 00:00 CONCLUSION: 1. Suboptimal examination with decreased visualization. 2. No evidence of deep venous thrombosis. 3. Bilateral soft tissue edema right greater than left. Extremity Arterial Study 07/11/18 00:00 CONCLUSION: 1. No evidence for any significant vascular occlusive disease. Physical Exam: GENERAL: awake and alert, NAD SKIN: Cool and dry. Has red maculopapular rash, generalized, better especially in the abdomen, back and BLE EYES: [place] conjunctiva. No petechia or hemorrhage. No scleral icterus. No injection or drainage. EARS, NOSE AND THROAT: Mucous membranes pink and moist. No oral lesions noted. No exudate. No oral thrush. NECK: Trachea midline. Short and obese. Supple and not tender, no meningeal signs CARDIOVASCULAR: Regular rate and rhythm. No murmurs, rubs or gallops heard RESPIRATORY: Clear to auscultation. Breath sounds equal bilaterally. No rales , wheezing or rhonchi ABDOMEN: Soft, non-tender, nondistended. Bowel sounds present and normoactive. No guarding. No rebound. No organomegaly. EXTREMITIES: No clubbing, cyanosis. Has very large BLE, and RLE is larger compared to the LLE, and there is minimal erythema. Has brownish pigmentation to his R leg. Wound with intact dressings NEUROLOGICAL: Grossly non-focal. PSYCHIATRIC: Normal affect, calm and cooperative. LINE: No evidence of infection Assessment and Plan - Plan Impression Group A Strep Sepsis on presentation Cellulitis RLE IMpetigo lesions on his LUE Morbid obesity Hx sleep apnea Allergy to PCN (severe) and Bactrim (rash) Rash, ?from Abx, ?Vanco or Clinda Recommendation Continue PO Levaquin - give until 07/24 Probable a few more days of steroids Wound care Doing well Explained plan to the patient D/W Dr Warren ([facility]AS)
--- NOTE | 2018-07-15 19:24 | P.PNPOD ---
Subjective Interval history: Patient feels improving seen bedside with family difficulty ambulation secondary to sciatica Physical Exam Vital signs: Vital Signs 07/14/18 20:00 07/14/18 20:50 07/14/18 22:10 Temperature 97.4 F L Pulse Rate 76 65 Respiratory Rate 20 20 Blood Pressure 134/68 Pulse Oximetry 94 L 96 07/15/18 00:00 07/15/18 04:00 07/15/18 08:00 Temperature 97.9 F 97.3 F L 97.4 F L Pulse Rate 61 65 63 Respiratory Rate 16 17 18 Blood Pressure 134/73 144/83 H 144/88 H Pulse Oximetry 98 93 L 96 07/15/18 10:11 07/15/18 12:00 07/15/18 16:00 Temperature 98.3 F 97.9 F Pulse Rate 77 79 Respiratory Rate 18 20 Blood Pressure 140/94 H 136/82 Pulse Oximetry 96 95 94 L 07/15/18 17:22 Temperature Pulse Rate Respiratory Rate Blood Pressure Pulse Oximetry 95 Intake & Output 07/15/18 07/15/18 07/16/18 06:59 18:59 06:59 Intake Total 240 / 240 720 / 720 Output Total 2750 / 2750 Balance -2510 / -2510 720 / 720 Weight 215.2 kg Intake: Oral 240 / 240 720 / 720 Output: Urine 2750 / 2750 Other: # Voids 925 Date of Last Bowel Movement 07/15/18 # Bowel Movements 2 0 - Constitutional no acute distress - Neurological Alert and oriented x3 - Routine Extremities Exam Comments: Bilateral lower extremity is examined superficial ulcerations of the pretibial area of the left lower extremity uncomplicated under 1 cm no probing to bone no drainage Right lower extremity approximately 3 x 4 cm irregular border lateral venous stasis ulcer without probing the fibula or deep muscle but apparently goes beyond the epidermis there is mixed serous drainage there is purple wound periphery Pulses palpable dorsalis pedis significant venous stasis hyperpigmentation right worse than left good range of motion of digits forefoot hindfoot ankle sensation appears to be intact Medications and Allergies Active Medications: Active Medications Acetaminophen (Tylenol) 650 mg PO Q4H PRN PRN Reason: Temp > 100.4 Last Admin: 07/11/18 15:53 Dose: 650 mg Al Hydroxide/Mg Hydroxide (Milk Of Magnesia Liq) 30 ml PO Q12H PRN PRN Reason: Mild Constipation Albuterol (Duoneb Neb (Prn)) 1 ampul NEB Q2HR NEB PRN PRN Reason: SHORTNESS OF BREATH Last Admin: 07/14/18 20:49 Dose: 1 ampul Alprazolam (Xanax) 0.5 mg PO BID PRN PRN Reason: Anxiety Last Admin: 07/10/18 02:48 Dose: 0.5 mg Bisacodyl (Dulcolax Supp) 10 mg RECTAL DAILY PRN PRN Reason: SEVERE CONSITIPATION Bupropion HCl (Wellbutrin Sr) 150 mg PO DAILY [facility] Last Admin: 07/15/18 08:02 Dose: 150 mg Carisoprodol (Soma) 350 mg PO TID [facility] Last Admin: 07/15/18 17:07 Dose: 350 mg Collagenase (Santyl Oint) 1 applicatio TOPICAL DAILY [facility] Last Admin: 07/15/18 08:04 Dose: 1 applicatio Dextrose (D50w Vial) 50 ml IV.PUSH UNSCH PRN PRN Reason: PER HYPOGLYCEMIA PROTOCOL Diphenhydramine HCl (Benadryl) 50 mg PO Q6H PRN PRN Reason: ITCHING Last Admin: 07/15/18 17:13 Dose: 50 mg Gabapentin (Neurontin) 1,200 mg PO TID [facility] Last Admin: 07/15/18 17:08 Dose: 1,200 mg Glucagon (Glucagon Inj) 1 mg OTHER PRN PRN PRN Reason: for Hypoglycemia Protocol Heparin Sodium (Porcine) (Heparin Inj) 5,000 units SQ Q12H [facility] Last Admin: 07/15/18 11:53 Dose: 5,000 units Insulin Aspart (Novolog Insulin Correctional Sugar Inj) 0 unit SQ [facility]; Protocol Last Admin: 07/15/18 17:09 Dose: 25 unit Lactulose (Lactulose Liq) 30 ml PO DAILY PRN PRN Reason: SEVERE CONSITIPATION Last Admin: 07/14/18 13:54 Dose: 30 ml Levofloxacin (Levaquin) 750 mg PO DAILY [facility] Stop: 07/24/18 23:00 Last Admin: 07/15/18 08:02 Dose: 750 mg Magnesium Oxide (Mag-Ox) 400 mg PO BID [facility] Last Admin: 07/15/18 08:02 Dose: 400 mg Nystatin (Mycostatin Powder) 1 applicatio TOPICAL QID [facility] Last Admin: 07/15/18 17:16 Dose: 1 applicatio Ondansetron HCl (Zofran Inj) 4 mg IV.PUSH Q6H PRN PRN Reason: NAUSEA OR VOMITING Pantoprazole Sodium (Protonix) 20 mg PO DAILY [facility] Last Admin: 07/15/18 08:02 Dose: 20 mg Prednisone (Deltasone) 20 mg PO TID [facility] Last Admin: 07/15/18 17:08 Dose: 20 mg Sennosides (Senokot) 17.2 mg PO Q12H PRN PRN Reason: Moderate Constipation Sodium Chloride (Ns Flush) 2 ml IV.FLUSH BID [facility] Last Admin: 07/15/18 08:03 Dose: 2 ml Sodium Chloride (Ns Flush) 2 ml IV.FLUSH PRN PRN PRN Reason: FLUSH AFTER USING IV ACCESS Tolterodine Tartrate (Detrol La) 4 mg PO DAILY [facility] Last Admin: 07/15/18 08:02 Dose: 4 mg Tramadol HCl (Ultram) 50 mg PO Q8H PRN PRN Reason: PAIN SCALE 1 TO 10 Last Admin: 07/10/18 10:42 Dose: 50 mg Allergies Allergy/AdvReac Type Severity Reaction Status Date / Time peas Allergy Severe Anaphylaxis Verified 07/08/18 18:07 penicillin G Allergy Severe Anaphylaxis Verified 07/08/18 18:07 Sulfa (Sulfonamide Allergy Severe Anaphylaxis Verified 07/08/18 18:07 Antibiotics) *MDRO Multi-Drug Resistant AdvReac Unknown unknown Uncoded 07/08/18 18:07 Organism Home Medications Medication Instructions Recorded Confirmed Type albuterol sulfate [ProAir HFA] 2 puff INHALATION Q4H PRN 07/08/18 07/08/18 History alprazolam [Xanax] 0.5 mg PO BID PRN 07/08/18 07/08/18 History ascorbic acid (vitamin C) [Vitamin 1,000 mg PO DAILY 07/08/18 07/08/18 History C] bupropion HCl [Wellbutrin XL] 150 mg PO DAILY 07/08/18 07/08/18 History carisoprodol [Soma] 350 mg PO TID 07/08/18 07/08/18 History exenatide microspheres [Bydureon 2 mg SUBCUT Q7D 07/08/18 07/08/18 History BCise] gabapentin 1,200 mg PO BID 07/08/18 07/08/18 History gabapentin 600 mg PO DAILY 07/08/18 07/08/18 History ibuprofen 800 mg PO DAILY 07/08/18 07/08/18 History metformin 1,000 mg PO BID 07/08/18 07/08/18 History mirabegron [Myrbetriq] 50 mg PO DAILY 07/08/18 07/08/18 History multivit with [id number] [One 1 tab PO DAILY 07/08/18 07/08/18 History Daily For Men] omeprazole 20 mg PO DAILY 07/08/18 07/08/18 History potassium chloride 20 meq PO BID 07/08/18 07/08/18 History tramadol 50 mg PO Q8HR PRN 07/08/18 07/08/18 History Results - Labs CBC & Chem 7: 07/15/18 04:17 07/15/18 04:17 Laboratory Results - last 24 hr 07/14/18 07/15/18 07/15/18 20:15 04:17 04:17 WBC 10.9 RBC 4.10 L Hgb 12.5 L Hct 36.8 L MCV 89.7 MCH 30.5 MCHC 34.1 RDW 14.9 Plt Count 334 D MPV 7.6 Sodium 133 L Potassium 4.7 Chloride 96 L Carbon Dioxide 30.2 Anion Gap 7 BUN 24 H Creatinine 1.04 Estimated GFR 76 L POC Glucose 358 H Random Glucose 335 H Calcium 8.5 07/15/18 07/15/18 07/15/18 08:01 12:12 17:09 WBC RBC Hgb Hct MCV MCH MCHC RDW Plt Count MPV Sodium Potassium Chloride Carbon Dioxide Anion Gap BUN Creatinine Estimated GFR POC Glucose 278 H 287 H 354 H Random Glucose Calcium Microbiology 07/10/18 05:53 Blood - Peripheral Aerobic Blood Culture - Final No growth in 5 days 07/10/18 05:53 Blood - Peripheral Anaerobic Blood Culture - Final No growth in 5 days Assessment and Plan - Assessment (1) Ulcer of right lower leg Code(s): L97.919 - Non-pressure chronic ulcer of unspecified part of right lower leg with unspecified severity Status: Acute (2) Chronic venous insufficiency Code(s): I87.2 - Venous insufficiency (chronic) (peripheral) Status: Acute - Plan Reviewed vascular consultation note I agree patient needs multilayer Unna boot dressing order placed for wound care nursing to apply this needs to be changed every 5 days. Patient can follow-up with [facility] wound care center as he is an established patient once discharged reconsult if patient stays in longer than 1 week
[2018-07-16 08:35] LABS: Hematocrit 39.2 % (39.0-51.0); Hemoglobin 13.2 gm/dL (13.0-17.0); Mean Corpuscular HGB Conc 33.8 % (32.0-36.0); Mean Corpuscular Hemoglobin 30.4 pg (27.0-34.0); Mean Corpuscular Volume 89.9 fL (80.0-100.0); Platelet Count 339 th/mm3 (150-450); Red Blood Count 4.36 mil/mm3 (4.50-5.90); Red Cell Distribution Width 14.8 % (11.6-17.2)
[2018-07-16 08:56] LABS: Carbon Dioxide 35.9 meq/L (21.0-32.0); Potassium 4.3 meq/L (3.5-5.1)
[2018-07-16] MEDS: Insulin NovoLOG Aspart Correctional Sugar Inj SQ SCH ×4 (09:29→21:20)
[2018-07-16] MEDS: buPROPion 150 MG 12 HR Tablet PO SCH (09:30)
[2018-07-16] MEDS: levoFLOXacin 750 MG Tablet PO SCH (09:30)
[2018-07-16] MEDS: Magnesium Oxide 400 MG Tablet PO SCH ×2 (09:30→21:20)
[2018-07-16] MEDS: Tolterodine Tartrate LA 4 MG Capsule PO SCH (09:31)
[2018-07-16] MEDS: Carisoprodol 350 MG Tablet PO SCH ×3 (09:31→17:15)
[2018-07-16] MEDS: predniSONE 20 MG Tablet PO SCH ×3 (09:31→21:20)
[2018-07-16] MEDS: Gabapentin 400 MG Capsule PO SCH ×3 (09:31→17:15)
[2018-07-16] MEDS: Pantoprazole Sodium 20 MG DR Tablet PO SCH (09:32)
--- NOTE | 2018-07-16 11:56 | P.DS ---
DS: Providers Date of admission: 07/08/18 22:17 Primary care physician: Yrn Zamora MD Consults: 07/09/18 04:26 Consult to Podiatry Routine Consulting Provider: Eliana Godwin Reason for Consultation: right lateral ankle ulcer. 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 Patient somnolent, wakes up for exam. He appears to deny pain. DS: Diagnosis Discharge Diagnosis (1) Ulcer of right lower leg: Status: Acute (2) Chronic venous insufficiency: Status: Acute DS: Summary Time Spent with Patient Total time spent providing and/or coordinating discharge services: Quality: VTE Deep Vein Thrombosis/Pulmonary Embolism Present on Admission: No Results Labs on day of discharge: Labs from last 24 hours 07/16/18 07/16/18 07/16/18 08:15 08:15 08:05 WBC 12.0 H RBC 4.36 L Hgb 13.2 Hct 39.2 MCV 89.9 MCH 30.4 MCHC 33.8 RDW 14.8 Plt Count 339 MPV 7.0 Sodium 133 L Potassium 4.3 Chloride 95 L Carbon Dioxide 35.9 H Anion Gap 2 L BUN 25 H Creatinine 1.00 Estimated GFR 79 L POC Glucose 230 H Random Glucose 228 H D Calcium 9.0 07/15/18 07/15/18 07/15/18 22:10 17:09 12:12 WBC RBC Hgb Hct MCV MCH MCHC RDW Plt Count MPV Sodium Potassium Chloride Carbon Dioxide Anion Gap BUN Creatinine Estimated GFR POC Glucose 313 H 354 H 287 H Random Glucose Calcium Impressions ITS Impressions Chest X-Ray 07/08/18 18:07 CONCLUSION: Suboptimal examination with hazy opacity in the left perihilar region and left lung base which could represent infiltrate or posterior layering effusion. Head CT 07/08/18 18:09 CONCLUSION: 1. Negative noncontrast head CT. . Chest CT 07/08/18 19:48 CONCLUSION: 1. No pneumonia or other acute cardiopulmonary disease demonstrated. 2. Enlarged, fatty liver. 3. Small hiatal hernia. Venous Doppler Study 07/09/18 00:00 CONCLUSION: 1. Suboptimal examination with decreased visualization. 2. No evidence of deep venous thrombosis. 3. Bilateral soft tissue edema right greater than left. Extremity Arterial Study 07/11/18 00:00 CONCLUSION: 1. No evidence for any significant vascular occlusive disease. Discharge Plan Discharge Disposition Patient Disposition: Discharge to SNF Discharge Condition Condition: Stable Discharge Order Discharge Orders: Discharge Order (Routine); Ordered 07/16/18 Ordered By: Ron Warren Physicians Team ED Provider: Karson Garcia ED Midlevel Provider: Carlyn Ramachandran Primary Care Provider: Yrn Zamora Attending Provider: Ron Warren Other Providers: Precious Lewis ; Eliana Godwin ; Rene Jay Rxs /Orders / Referrals /Forms Prescriptions: No Action ibuprofen 800 mg Tablet 800 mg PO DAILY RF: 0 omeprazole 20 mg Capsule,Delayed Release(Dr/Ec) 20 mg PO DAILY RF: 0 bupropion HCl [Wellbutrin XL] 150 mg Tablet Extended Release 24 Hr 150 mg PO DAILY RF: 0 multivit with [id number] [One Daily For Men] 0.4-600 mg-mcg Tablet 1 tab PO DAILY RF: 0 potassium chloride 20 mEq Tablet Extended Release 20 meq PO BID RF: 0 carisoprodol [Soma] 350 mg Tablet 350 mg PO TID RF: 0 metformin 500 mg Tablet 1,000 mg PO BID RF: 0 ascorbic acid (vitamin C) [Vitamin C] 1,000 mg Tablet 1,000 mg PO DAILY RF: 0 tramadol 50 mg Tablet 50 mg PO Q8HR PRN (Reason: Pain) RF: 0 alprazolam [Xanax] 0.5 mg Tablet 0.5 mg PO BID PRN (Reason: Anxiety) RF: 0 gabapentin 300 mg Capsule 600 mg PO DAILY RF: 0 gabapentin 300 mg Capsule 1,200 mg PO BID RF: 0 albuterol sulfate [ProAir HFA] 90 mcg/actuation Hfa Aerosol Inhaler 2 puff INHALATION Q4H PRN (Reason: Shortness Of Breath) RF: 0 mirabegron [Myrbetriq] 50 mg Tablet Extended Release 24 Hr 50 mg PO DAILY RF: 0 exenatide microspheres [Bydureon BCise] 2 mg/0.85 mL Auto-Injector 2 mg SUBCUT Q7D RF: 0 Referrals: Yrn Zamora MD [Primary Care Provider] - See Instructions John Abreu MD [Physician] - See Instructions (Your venous insufficiency exam is scheduled on 08/11/18 at 10:30 Your follow up appoinment is scheduled on 08/12/18 at 10:00) Discharge Interventions Interventions: Discharge Planning - Case Management Last Done: 07/15/18 14:58 Status ED Status: Left Department
[2018-07-16] MEDS: Nystatin 100,000 UNITS/GM Powder 15 GM Bottle TOPICAL SCH ×4 (13:07→21:20)
[2018-07-16] MEDS: Heparin - SQ 10,000 UNITS/ML Vial SQ SCH ×2 (13:07→22:21)
--- NOTE | 2018-07-16 13:39 | P.PNIM ---
Subjective Interval history: Patient reports he is feeling okay today. Afebrile. We discussed the need for assisted facility placement. Initially reluctant but he is agreeable. Rashes improved. He is itching less. Physical Exam Vital signs: Last Vital Signs Temp 97.3 F L 07/16/18 08:00 Pulse 68 07/16/18 08:00 Resp 18 07/16/18 08:00 BP 136/91 H 07/16/18 08:00 Pulse Ox 95 07/16/18 08:00 Intake & Output 07/14/18 07/15/18 07/16/18 07/17/18 06:59 06:59 06:59 06:59 Intake Total 960 / 960 1160 / 1160 1680 / 1680 Output Total 1300 / 1300 4250 / 4250 2650 / 2650 Balance -340 / -340 -3090 / -3090 -970 / -970 Weight 222.1 kg 215.2 kg 214.8 kg Narrative: General patient appears to have a diffuse rash over his chest and abdomen and extremities. HEENT extraocular movements are intact, clear oropharyngeal mucosa, no JVD Cardiovascular S1-S2 audible, RRR, no murmurs rubs or gallops Respiratory clear to auscultation bilaterally Abdomen soft, nontender, nondistended, normal bowel sounds Extremities left lower extremity wound with dressing intact Neuro: no focal neurological deficits. Very deconditioned Urinary Catheter Management Indwelling Temp Sensing Catheter: Cath placed during this visit: yes, but has since been removed by the nurse Urethral indwelling: Yes Insertion date: 07/08/18 Insertion time: 20:05 Removal date: 07/10/18 Removal time: 09:10 Results Labs CBC & Chem 7: 07/16/18 08:15 07/16/18 08:15 Labs: Microbiology 07/10/18 05:53 Blood - Peripheral Aerobic Blood Culture - Final No growth in 5 days 07/10/18 05:53 Blood - Peripheral Anaerobic Blood Culture - Final No growth in 5 days Assessment and Plan (1) Ulcer of right lower leg: Code(s): L97.919 - Non-pressure chronic ulcer of unspecified part of right lower leg with unspecified severity Status: Acute (2) Chronic venous insufficiency: Code(s): I87.2 - Venous insufficiency (chronic) (peripheral) Status: Acute Plan 48-year-old male with multiple medical comorbidities including diabetes, anxiety , depression. The patient presented to our hospital with acute encephalopathy as well as accelerated hypertension. He was admitted for sepsis secondary to bilateral lower extremity cellulitis. 1. Sepsis secondary to bilateral lower extremity cellulitis. 2. Acute encephalopathy likely secondary to #1 Patient initially treated with IV antibiotics under the guidance of infectious disease. He was switched to clindamycin. Initially blood cultures were positive growing group A strep, and staph. Repeat blood cultures are negative. He developed diffuse rash. Clindamycin discontinued. Patient started on oral Levaquin per ID. Continue until 07/24/18 Will continue Benadryl as needed. Has been receiving IV Solu-Medrol. Transitioned to oral prednisone. Continue to wean off given diabetes. Changed to 20 mg twice daily. We will continue to monitor the patient. Vascular surgery evaluated the patient, no immediate intervention necessary. The patient can follow-up with vascular surgery outpatient after discharge. Acute encephalopathy has resolved. Appreciate podiatry input. Continue multilayer Unna boot dressing. Wound care nursing. Dressing to be changed every 5 days. Patient can follow-up with [facility] wound care center as he is an established patient once discharged. 2. Hyperkalemia Resolved 2. Obstructive sleep apnea Continue DuoNeb treatments as needed BiPAP at night Wean off oxygen as tolerated. He does not use home oxygen. 3. Diabetes mellitus type 2 Continue low-dose insulin sliding scale insulin continue Accu-Cheks. 4. Morbid obesity and severe physical deconditioning. - Consult PT to mobilize him. Patient counseled on lifestyle modifications and diet. DVT prophylaxis, continue subcu heparin. Discharge planning: Discussed with case management. Patient needs SNF placement. Case management working on placement. Anticipate DC soon Progress Note: Quality VTE Deep Vein Thrombosis/Pulmonary Embolism Present on Admission: No _ (1) Ulcer of right lower leg Qualifiers: Non-pressure ulcer stage:
[2018-07-16] MEDS: Collagenase Oint 30 GM Tube TOPICAL SCH (16:51)
--- NOTE | 2018-07-16 19:11 | P.PNWCN ---
Wound Care Nurse Consult Description: Received wound management consult for Bilateral lower extremity Kaplan boots application Communicated with: RN Zee montez and Doctor Evangelina Recommendation: If patient is being D/C to home health care or facility Kaplan boots must be change every 5 days. If patient is remaining in hospital wound care nurse will change kaplan boots with optifoam gentle AG covering open wounds once a week. Wound/Pressure Injury - Wound Right lateral leg Wound Assessment: Ongoing Wound Type: Traumatic Wound (possibly venous stasis) Is This a Chronic Wound: Yes Requested from Provider a Wound Care Consult: Yes (Patient seen today by inpatient wound care nurse) Length (cm): 5 (~5cm) Width (cm): 4 (~4cm) Depth (cm): 0.4 (~0.4cm) Wound Bed Appearance: Red Wound Bed Appearance: 100% red tissue Surrounding Tissue Appearance: [place] Surrounding Tissue Temperature: Cool Drainage Description: Serosanguinous Drainage Amount: Minimal Drainage Odor: No Odor Dressing Status: Changed Cleansing Solution: Saline Primary Dressing: Optifoam gentle AG Cover Dressing: Kaplan boot Wound Dressing Change Date: 07/16/18 Wound Margin Description: Well defined and open. Right [place] Wound Assessment: Ongoing Wound Type: Traumatic Wound (Possibly venous stasis) Is This a Chronic Wound: Yes Requested from Provider a Wound Care Consult: Yes (Patient seen today by inpatient wound care nurse) Length (cm): 1 (~1cm) Width (cm): 2 (~2cm) Depth (cm): 0.1 (~0.1cm) Wound Bed Appearance: Red Wound Bed Appearance: 100% red non-granulation tissue. Surrounding Tissue Appearance: [place] Surrounding Tissue Temperature: Cool Drainage Description: Serosanguinous Drainage Amount: Minimal Drainage Odor: No Odor Dressing Status: Changed Cleansing Solution: Saline Primary Dressing: optifoam gentle AG Cover Dressing: Kaplan Boots Wound Dressing Change Date: 07/16/18 Wound Margin Description: Well defined, irregular and open Left lateral leg Wound Assessment: Ongoing Wound Type: Traumatic Wound (Possibly Venous stasis ulcer) Is This a Chronic Wound: Yes Requested from Provider a Wound Care Consult: Yes (Patient seen today by inpatient wound care nurse) Length (cm): 0.5 Width (cm): 0.5 Depth (cm): 0.4 (~0.4cm) Wound Bed Appearance: Red Wound Bed Appearance: 100% red non-granulation tissue. Surrounding Tissue Appearance: [place] Surrounding Tissue Temperature: Cool Drainage Description: Serosanguinous Drainage Amount: Minimal Drainage Odor: No Odor Dressing Status: Changed Cleansing Solution: Saline Primary Dressing: Optifoam gentle AG Cover Dressing: Kaplan Boots Wound Dressing Change Date: 07/16/18 Wound Margin Description: Even, well defined and steep - Additional Information Patient seen on [address] for Kaplan boot application to bilateral lower extremities. Patient is laying in low airloss K4 bariatric bed. Removed gauze and optifoam dressings in place to reveal three open wound to bilateral lower extremities. Wound culture is positive for Group A beta strep for leg wound. Wounds all present with red tissue and appear clean, with minimal active sero- sanguinous drainage.Wounds were cleansed with normal saline and patted dry. Applied Optifoam AG gentle 8x8 cut to fit wound beds in place over open wounds. Then applied Kaplan boots . Patient tolerated well. Full wound description, measurements and wound care recommendations are noted above.
[2018-07-17] MEDS: Insulin NovoLOG Aspart Correctional Sugar Inj SQ SCH ×3 (09:09→17:58)
[2018-07-17] MEDS: Tolterodine Tartrate LA 4 MG Capsule PO SCH (09:11)
[2018-07-17] MEDS: Gabapentin 400 MG Capsule PO SCH ×3 (09:15→17:57)
[2018-07-17] MEDS: levoFLOXacin 750 MG Tablet PO SCH (09:15)
[2018-07-17] MEDS: Pantoprazole Sodium 20 MG DR Tablet PO SCH (09:16)
[2018-07-17] MEDS: Carisoprodol 350 MG Tablet PO SCH ×3 (09:16→17:57)
[2018-07-17] MEDS: predniSONE 20 MG Tablet PO SCH (09:16)
[2018-07-17] MEDS: buPROPion 150 MG 12 HR Tablet PO SCH (09:16)
[2018-07-17] MEDS: Nystatin 100,000 UNITS/GM Powder 15 GM Bottle TOPICAL SCH ×3 (09:17→17:58)
[2018-07-17] MEDS: Collagenase Oint 30 GM Tube TOPICAL SCH (09:22)
--- NOTE | 2018-07-17 11:26 | P.DS ---
DS: Providers Date of admission: 07/08/18 22:17 Primary care physician: Yrn Zamora MD Consults: 07/09/18 04:26 Consult to Podiatry Routine Consulting Provider: Eliana Godwin Reason for Consultation: right lateral ankle ulcer. may need debridemnt Notified:: Service Spoke with:: janna Date Notified:: 07/09/18 Time Notified:: 05:42 Ordering Provider: WILLIAM 07/09/18 04:36 Consult to Infectious Diseases Routine Consulting Provider: Precious Lewis Reason for Consultation: DM cellulitis, sepsis Notified:: Service Spoke with:: janna Date Notified:: 07/09/18 Time Notified:: 05:39 Ordering Provider: WILLIAM 07/16/18 12:04 HUB Only Consult Order Routine Consulting Provider: Gopi Pichardo 07/16/18 12:05 HUB Only Consult Order Routine Consulting Provider: [facility],Agency Brief History from admission: 48-year-old male with multiple medical comorbidities including diabetes, anxiety, depression. The patient presented to our hospital with acute encephalopathy as well as accelerated hypertension. He was admitted for sepsis secondary to bilateral lower extremity cellulitis. Patient update on day of discharge: Patient reports he is feeling better. Afebrile. He has been ambulating. Feels comfortable with going home. DS: Diagnosis Discharge Diagnosis (1) Ulcer of right lower leg: Status: Acute (2) Chronic venous insufficiency: Status: Acute DS: Summary 48-year-old male with multiple medical comorbidities including diabetes, anxiety , depression. The patient presented to our hospital with acute encephalopathy as well as accelerated hypertension. He was admitted for sepsis secondary to bilateral lower extremity cellulitis. Evaluation and treatment course detailed below. 1. Sepsis secondary to bilateral lower extremity cellulitis. 2. Acute encephalopathy likely secondary to #1 Patient initially treated with IV antibiotics under the guidance of infectious disease. He was switched to clindamycin. Initially blood cultures were positive growing group A strep, and staph. Repeat blood cultures are negative. He developed diffuse rash. Clindamycin discontinued. Patient started on oral Levaquin per ID. He will continue on Levaquin for an additional 7 days. Treated with steroids and Benadryl. Has been receiving IV Solu-Medrol. Transitioned to oral prednisone and weaned off. Vascular surgery evaluated the patient, no immediate intervention necessary. The patient can follow-up with vascular surgery outpatient after discharge. Acute encephalopathy has resolved. Appreciate podiatry input. Continue multilayer Unna boot dressing. Wound care nursing. Dressing to be changed every 5 days. Patient can follow-up with [facility] wound care center as he is an established patient once discharged. 2. Hyperkalemia Resolved 2. Obstructive sleep apnea Advised the patient continue BiPAP at night 3. Diabetes mellitus type 2 Resume home medications on discharge 4. Morbid obesity and severe physical deconditioning. -Initially severely deconditioned but improved over time. He is discharged with home health. -Patient counseled on lifestyle modifications and diet. The patient is advised to follow-up with PCP, podiatry, and the wound care center. Time Spent with Patient Total time spent providing and/or coordinating discharge services: Greater than 30 minutes Quality: VTE Deep Vein Thrombosis/Pulmonary Embolism Present on Admission: No Exam Narrative Exam Narrative: General patient appears to have a diffuse rash over his chest and abdomen and extremities. HEENT extraocular movements are intact, clear oropharyngeal mucosa, no JVD Cardiovascular S1-S2 audible, RRR, no murmurs rubs or gallops Respiratory clear to auscultation bilaterally Abdomen soft, nontender, nondistended, normal bowel sounds Extremities left lower extremity wound with dressing intact Neuro: no focal neurological deficits. Results Labs on day of discharge: Labs from last 24 hours 07/17/18 07/16/18 07/16/18 07:39 21:13 17:12 POC Glucose 380 H 388 H 292 H 07/16/18 11:55 POC Glucose 267 H Impressions ITS Impressions Chest X-Ray 07/08/18 18:07 CONCLUSION: Suboptimal examination with hazy opacity in the left perihilar region and left lung base which could represent infiltrate or posterior layering effusion. Head CT 07/08/18 18:09 CONCLUSION: 1. Negative noncontrast head CT. . Chest CT 07/08/18 19:48 CONCLUSION: 1. No pneumonia or other acute cardiopulmonary disease demonstrated. 2. Enlarged, fatty liver. 3. Small hiatal hernia. Venous Doppler Study 07/09/18 00:00 CONCLUSION: 1. Suboptimal examination with decreased visualization. 2. No evidence of deep venous thrombosis. 3. Bilateral soft tissue edema right greater than left. Extremity Arterial Study 07/11/18 00:00 CONCLUSION: 1. No evidence for any significant vascular occlusive disease. Discharge Plan Discharge Disposition Patient Disposition: W/Home Health Service Discharge Condition Condition: Stable Discharge Order Discharge Orders: Discharge Order (Routine); Ordered 07/17/18 Ordered By: Ron Warren Physicians Team ED Provider: Karson Garcia ED Midlevel Provider: Carlyn Ramachandran Primary Care Provider: Yrn Zamora Attending Provider: Ron Warren Other Providers: Precious Lewis ; Eliana Godwin ; Rene Jay ; Gopi Pichardo ; [facility],Agency Rxs /Orders / Referrals /Forms Prescriptions: New levofloxacin 750 mg Tablet 750 mg PO DAILY Qty: 7 RF: 0 Continue ibuprofen 800 mg Tablet 800 mg PO DAILY RF: 0 omeprazole 20 mg Capsule,Delayed Release(Dr/Ec) 20 mg PO DAILY RF: 0 bupropion HCl [Wellbutrin XL] 150 mg Tablet Extended Release 24 Hr 150 mg PO DAILY RF: 0 multivit with iht-[id number] [One Daily For Men] 0.4-600 mg-mcg Tablet 1 tab PO DAILY RF: 0 potassium chloride 20 mEq Tablet Extended Release 20 meq PO BID RF: 0 carisoprodol [Soma] 350 mg Tablet 350 mg PO TID RF: 0 metformin 500 mg Tablet 1,000 mg PO BID RF: 0 ascorbic acid (vitamin C) [Vitamin C] 1,000 mg Tablet 1,000 mg PO DAILY RF: 0 tramadol 50 mg Tablet 50 mg PO Q8HR PRN (Reason: Pain) RF: 0 alprazolam [Xanax] 0.5 mg Tablet 0.5 mg PO BID PRN (Reason: Anxiety) RF: 0 gabapentin 300 mg Capsule 600 mg PO DAILY RF: 0 gabapentin 300 mg Capsule 1,200 mg PO BID RF: 0 albuterol sulfate [ProAir HFA] 90 mcg/actuation Hfa Aerosol Inhaler 2 puff INHALATION Q4H PRN (Reason: Shortness Of Breath) RF: 0 mirabegron [Myrbetriq] 50 mg Tablet Extended Release 24 Hr 50 mg PO DAILY RF: 0 exenatide microspheres [Bydureon BCise] 2 mg/0.85 mL Auto-Injector 2 mg SUBCUT Q7D RF: 0 Referrals: Yrn Zamora MD [Primary Care Provider] - See Instructions John Abreu MD [Physician] - See Instructions (Your venous insufficiency exam is scheduled on 08/11/18 at 10:30 Your follow up appoinment is scheduled on 08/12/18 at 10:00) Discharge Instructions Patient Printed Instructions: Acute Kidney Injury (DC), Cellulitis (DC), Sepsis (GEN) Status ED Status: Left Department
[2018-07-17] MEDS: Magnesium Oxide 400 MG Tablet PO SCH (11:41)
[2018-07-17] MEDS: Heparin - SQ 10,000 UNITS/ML Vial SQ SCH (11:42)
[2018-07-17 16:56] VITALS: BP 146/77; PULSE 74; RESP 18; TEMP 98.3; O2SAT 93
== END 2018-07-17 19:25 | disposition home or self-care (01) ==
LOC: NEPC 17:47 → NEDA 22:17 → HIMC 07-09 01:50 → N04 07-12 19:53
PROVIDERS: ADMIT Family Medicine; ATTEND Family Medicine
DX: J45.909 Unspecified asthma, uncomplicated; Z79.84 Long term (current) use of oral hypoglycemic drugs; G47.33 Obstructive sleep apnea (adult) (pediatric); E11.40 Type 2 diabetes mellitus with diabetic neuropathy, unspecified; Z88.2 Allergy status to sulfonamides; E11.621 Type 2 diabetes mellitus with foot ulcer; E87.5 Hyperkalemia; K21.9 Gastro-esophageal reflux disease without esophagitis; Z79.899 Other long term (current) drug therapy; L03.115 Cellulitis of right lower limb; I10 Essential (primary) hypertension; N32.81 Overactive bladder; Z68.43 Body mass index [BMI] 50.0-59.9, adult; Z88.0 Allergy status to penicillin; R65.21 Severe sepsis with septic shock; A40.0 Sepsis due to streptococcus, group A; F17.210 Nicotine dependence, cigarettes, uncomplicated; G93.41 Metabolic encephalopathy; L97.319 Non-pressure chronic ulcer of right ankle with unspecified severity; T37.0X5A Adverse effect of sulfonamides, initial encounter; F32.9 Major depressive disorder, single episode, unspecified; I87.8 Other specified disorders of veins; J96.90 Respiratory failure, unspecified, unspecified whether with hypoxia or hypercapnia; I87.2 Venous insufficiency (chronic) (peripheral); L01.00 Impetigo, unspecified; M54.30 Sciatica, unspecified side; E66.01 Morbid (severe) obesity due to excess calories; E83.42 Hypomagnesemia; F41.9 Anxiety disorder, unspecified; L97.519 Non-pressure chronic ulcer of other part of right foot with unspecified severity; L03.116 Cellulitis of left lower limb; N17.9 Acute kidney failure, unspecified; E11.622 Type 2 diabetes mellitus with other skin ulcer; I89.0 Lymphedema, not elsewhere classified